=== PATIENT | female | born 1985 | race Caucasian/White ===

== ENCOUNTER → 2016-12-07 | Outpatient (REF) | payer OTHER, MEDICAID ==
[~2016-12-07] MED LIST: /MOM400 PO; ACET50TA PO; ANUS2.5C2 PR; CIPR500T89 PO; COLA50CA3 PO; FLAG500T PO; IBUP600T26 PO; PERCOCET PO
== END ==
LOC: M LAB REF 14:52
PROVIDERS: ATTEND Physician Assistant Medical
DX: Z11.3 Encounter for screening for infections with a predominantly sexual mode of transmission (principal)

== ENCOUNTER 2016-12-14 14:25 | Emergency (ER) | payer MEDICAID, OTHER ==
[2016-12-14] MEDS ORDERED: ONDANSETRON 4MG/2ML VIAL (J2405) As Ordered ONE (15:41)
[2016-12-14] MEDS ORDERED: KETOROLAC 30 MG/ML VIAL (J1885) As Ordered ONE (15:41)
[2016-12-14 15:58] LABS: CONTROL LINE UCG INT CTR LINE PRESENT
[2016-12-14 15:59] LABS: BASO % 0.7 % (0.0-1.0); EOS # 0.3 K/mm3 (0.0-0.50); EOS % 5.6 % (0.0-3.0); LARGE UNSTAINED CELL # 0.1 K/mm3 (0.0-0.4); LYMPH # 2.3 K/mm3 (1.5-6.5); LYMPH % 40.4 % (24.0-44.0); MEAN CORPUSCULAR HEMOGLOBIN 28.3 pg (27.0-33.0); MEAN CORPUSCULAR HGB CONC 33.2 g/dl (32.0-36.5); MEAN CORPUSCULAR VOLUME 85.2 fl (80.0-96.0); MONO # 0.3 K/mm3 (0.0-0.8); MONO % 4.8 % (0.0-5.0); NEUTROPHILS # 2.5 K/mm3 (1.8-7.7); NEUTROPHILS % 46.5 % (36.0-66.0); PLATELET COUNT, AUTOMATED 211 k/mm3 (150-450); RED CELL DISTRIBUTION WIDTH 12.8 % (11.5-14.5); WHITE BLOOD COUNT 5.3 K/mm3 (4.0-10.0)
[2016-12-14 16:15] LABS: ALBUMIN 3.6 GM/DL (3.2-5.2); ALBUMIN/GLOBULIN RATIO 0.92 (1.00-1.93); ALKALINE PHOSPHATASE 71 U/L (45-117); ALT/SGPT 28 U/L (12-78); AMYLASE 41 U/L (25-115); ANION GAP 3 MEQ/L (8-16); AST/SGOT 20 U/L (15-37); BILIRUBIN,DIRECT < 0.1 MG/DL (0.0-0.2); BILIRUBIN,TOTAL 0.4 MG/DL (0.2-1.0); BLOOD UREA NITROGEN 6 MG/DL (7-18); CALCIUM LEVEL 8.2 MG/DL (8.5-10.1); CARBON DIOXIDE LEVEL 32 MEQ/L (21-32); CHLORIDE LEVEL 106 MEQ/L (98-107); CREATININE FOR GFR 0.72 MG/DL (0.55-1.02); GLOMERULAR FILTRATION RATE > 60.0 (>60); GLUCOSE, FASTING 91 MG/DL (70-105); SODIUM LEVEL 141 MEQ/L (136-145); TOTAL PROTEIN 7.5 GM/DL (6.4-8.2)
--- NOTE | 2016-12-14 16:16 | REP ---
Clinical: Pelvic pain . Technique: Transabdominal pelvic ultrasound followed by transvaginal examination for better evaluation of the endometrium and adnexa with color Doppler evaluation of the ovaries. Findings: Bladder is unremarkable and currently measures 5.7 x 4.9 x 3.4 cm. Normal anteverted uterus measures 8.2 x 4.6 x 5.9 cm . The endometrial complex measures 4.6 mm thickness. No discrete uterine or endometrial abnormalities are appreciated. Bilateral ovaries are normal in appearance and vascularity without evidence for torsion. Right ovary measures 3.3 x 2.4 x 1.7 cm ; R I = 0.69. Left ovary measures 2.8 x 2.7 x 2.3 cm ; R I = 0.48. No pelvic free fluid or adnexal mass lesion. Impression: 1. Normal pelvic ultrasound. No torsion. Signed by Benito Moe MD 12/14/2016 04:08 P
[2016-12-14 16:17] LABS: POTASSIUM SERUM 4.5 MEQ/L (3.5-5.1)
[2016-12-14] MEDS ORDERED: AUGMENTIN 875 MG TAB As Ordered ONE (17:02)
--- NOTE | 2016-12-14 17:26 | EDDOCDS ---
Nurse's Notes [facility] Name: Caitlyn Bravo Age: 31 yrs Sex: Female : 1985 Arrival Date: 12/14/2016 Time: 14:25 Bed I2 / M2 Private MD: [facility] - Adults Diagnosis: Acute sinusitis;Pelvic and perineal pain Presentation: 12/14 14:29 Presenting complaint: Patient states: sinus pain/tenderness for few day. RLQ cramping rs3 for 3 weeks shooting pain since yesterday. Adult Sepsis Screening: The patient does not have new or worsening altered mentation. Patient's respiratory rate is less than 22. Systolic blood pressure is greater than 100. Patient has a qSOFA score of 0- Negative Sepsis Screen. Suicide/Homicide risk assessment- the patient denies having any suicidal and/or homicidal ideations and does not present with any other emotional, behavioral or mental health complaints. Status: Patient is not a radiology services manager or dependent. Transition of care: patient was not received from another setting of care. 14:29 Acuity: JEF Level 4 rs3 14:29 Method Of Arrival: Walkin/Carried/Asstd rs3 Triage Assessment: 14:30 General: Appears in no apparent distress. Pain: Location: face. HIV screening NA for rs3 this visit Offered previously. 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 none - PMHx: Crohn's; IBS; Ovarian cyst; UTI; - PSHx: Tonsillectomy; Adenoidectomy; Bowel resection (2012); Exploratory lap; - Social history: Smoking status: Patient uses tobacco products, light tobacco smoker. No barriers to communication noted, The patient speaks fluent Croatian. - Family history: Not pertinent. - : The pt / caregiver states he / she is not on anticoagulants. Home medication list is obtained from the patient. - Exposure Risk Screening:: None identified. Screenin:48 Screening information is obtained from the patient. Fall risk: No risks identified. kr3 Assistance ADL's: requires no assistance with activities of daily living. Abuse/DV Screen: The patient / caregiver reports he/she is: not in a situation that causes fear, pain or injury. Nutritional screening: No deficits noted. Advance Directives: Currently, there is no health care proxy. home support is adequate. Assessment: 15:49 General: Appears in no apparent distress, comfortable, Behavior is cooperative. Pain: kr3 Location: 'right ovary' Pain currently is 6 out of 10 on a pain scale. Neurological: Level of Consciousness is awake, alert. EENT: Reports nasal congestion sinus pain and presssure. Respiratory: Respiratory effort is even, unlabored. : Denies discharge, vaginal bleeding. Derm: Skin is normal. 17:23 General: Appears in no apparent distress, comfortable, Behavior is cooperative. mk4 General:. Neurological: Level of Consciousness is awake, alert. Respiratory: Airway is patent. Derm: Skin is normal. Vital Signs: 14:28 BP 133 / 84; Pulse 93; Resp 18; Temp 98.0(O); Pulse Ox 100% on R/A; Weight 99.79 kg; lr2 Height 6 ft. 10 in. (208.28 cm); Pain 6/10; 17:23 BP 128 / 88; Pulse 92; Resp 18; Temp 97; mk4 14:28 Body Mass Index 23.00 (99.79 kg, 208.28 cm) lr2 Vitals: 14:28 Log In Time: December 14, 2016 at 14:25. lr2 ED Course: 14:27 Patient visited by Becca Osborn. lr2 14:27 [facility] is Private Physician. lr2 14:27 Patient moved to Waiting lr2 14:27 Patient moved to Pre RCE lr2 14:30 Triage Initiated rs3 15:07 Patient moved to Triage 2 jb5 15:08 [facility] ef1 15:08 Kodak Angeles MD is Attending Physician. ef1 15:08 Patient visited by Linsey Rodríguez PA-C. ef1 15:30 Urinalysis Sent. jb5 15:31 Patient moved to I2 / M2 jb5 15:31 Urine Culture Sent. jb5 15:39 Patient visited by Katelynn Mcgrath RN. ck1 15:47 Patient moved to Ultrasound am10 15:48 The patient / caregiver is instructed regarding the plan of care and ED course. Patient brigid has correct armband on for positive identification. Placed in gown. Bed in low position. Call light in reach. Side rails up X 1. 15:48 Inserted saline lock: 20 gauge in left antecubital area and blood collected. The kr3 patient tolerated the procedure well. 16:02 Patient moved to I2 / M2 ef1 16:09 Patient visited by Linsey Rodríguez PA-C. ef1 16:31 -US Pelvic Non-Ob Complete Returned. EDMS 16:46 Patient visited by Anisha Cmoer RN. mk4 16:59 [facility] is Referral Physician. ef1 16:59 Your Deicer Kit Assembler is Referral Physician. ef1 17:23 No procedures done that require assistance. mk4 Administered Medications: 15:50 Drug: NS 0.9% 1000 ml [sodium chloride 0.9 % intravenous solution] Route: IV; Rate: mk4 bolus; Site: left antecubital; 15:50 Drug: ketorolac 30 mg [ketorolac 30 mg/mL (1 mL) injection solution (1 mL)] Route: IVP; mk4 Site: left antecubital; 15:51 Drug: Ondansetron 4 mg Route: IVP; Site: left antecubital; mk4 17:12 Drug: Amoxicillin-Clavulanate 1 tabs [amoxicillin 875 mg-potassium clavulanate 125 mg mk4 tablet (1 tabs)] Route: PO; Order Results: Lab Order: Amylase; SPEC'M 12/14/16 15:46 Test: AMYLASE; Value: 41; Range: 25-115; Units: U/L; Status: F Lab Order: Basic Metabolic Profile; SPEC'M 12/14/16 15:46 Test: GLUCOSE, FASTING; Value: 91; Range: 70-105; Units: MG/DL; Status: F Test: BLOOD UREA NITROGEN; Value: 6; Range: 7-18; Abnormal: Below low normal; Units: MG/DL; Status: F Test: CREATININE FOR GFR; Value: 0.72; Range: 0.55-1.02; Units: MG/DL; Status: F Test: GLOMERULAR FILTRATION RATE; Value: > 60.0; Range: >60; Status: F Test: SODIUM LEVEL; Value: 141; Range: 136-145; Units: MEQ/L; Status: F Test: POTASSIUM SERUM; Value: 4.5; Range: 3.5-5.1; Units: MEQ/L; Status: F Test: CHLORIDE LEVEL; Value: 106; Range: 98-107; Units: MEQ/L; Status: F Test: CARBON DIOXIDE LEVEL; Value: 32; Range: 21-32; Units: MEQ/L; Status: F Test: ANION GAP; Value: 3; Range: 8-16; Abnormal: Below low normal; Units: MEQ/L; Status: F Test: CALCIUM LEVEL; Value: 8.2; Range: 8.5-10.1; Abnormal: Below low normal; Units: MG/DL; Status: F Test Note: ; Units are mL/min/1.73 m2 Chronic Kidney Disease Staging per NKF: Stage I & II GFR >=60 Normal to Mildly Decreased Stage III GFR 30-59 Moderately Decreased Stage IV GFR 15-29 Severely Decreased Stage V GFR <15 Very Little GFR Left ESRD GFR <15 on FLOOR CASHIER Lab Order: CBC with Diff; SPEC'M 12/14/16 15:46 Test: WHITE BLOOD COUNT; Value: 5.3; Range: 4.0-10.0; Units: K/mm3; Status: F Test: RED BLOOD COUNT; Value: 5.20; Range: 4.00-5.40; Units: M/mm3; Status: F Test: HEMOGLOBIN; Value: 14.7; Range: 12.0-16.0; Units: g/dl; Status: F Test: HEMATOCRIT; Value: 44.3; Range: 36.0-47.0; Units: %; Status: F Test: MEAN CORPUSCULAR VOLUME; Value: 85.2; Range: 80.0-96.0; Units: fl; Status: F Test: MEAN CORPUSCULAR HEMOGLOBIN; Value: 28.3; Range: 27.0-33.0; Units: pg; Status: F Test: MEAN CORPUSCULAR HGB CONC; Value: 33.2; Range: 32.0-36.5; Units: g/dl; Status: F Test: RED CELL DISTRIBUTION WIDTH; Value: 12.8; Range: 11.5-14.5; Units: %; Status: F Test: PLATELET COUNT, AUTOMATED; Value: 211; Range: 150-450; Units: k/mm3; Status: F Test: NEUTROPHILS %; Value: 46.5; Range: 36.0-66.0; Units: %; Status: F Test: LYMPH %; Value: 40.4; Range: 24.0-44.0; Units: %; Status: F Test: MONO %; Value: 4.8; Range: 0.0-5.0; Units: %; Status: F Test: EOS %; Value: 5.6; Range: 0.0-3.0; Abnormal: Above high normal; Units: %; Status: F Test: BASO %; Value: 0.7; Range: 0.0-1.0; Units: %; Status: F Test: LARGE UNSTAINED CELL %; Value: 2.0; Range: 0.0-4.0; Units: %; Status: F Test: NEUTROPHILS #; Value: 2.5; Range: 1.8-7.7; Units: K/mm3; Status: F Test: LYMPH #; Value: 2.3; Range: 1.5-6.5; Units: K/mm3; Status: F Test: MONO #; Value: 0.3; Range: 0.0-0.8; Units: K/mm3; Status: F Test: EOS #; Value: 0.3; Range: 0.0-0.50; Units: K/mm3; Status: F Test: BASO #; Value: 0.0; Range: 0.0-0.2; Units: K/mm3; Status: F Test: LARGE UNSTAINED CELL #; Value: 0.1; Range: 0.0-0.4; Units: K/mm3; Status: F Lab Order: Lipase; SPEC' 12/14/16 15:46 Test: LIPASE; Value: 104; Range: 73-393; Units: U/L; Status: F Lab Order: Liver Profile; SPEC' 12/14/16 15:46 Test: AST/SGOT; Value: 20; Range: 15-37; Units: U/L; Status: F Test: ALT/SGPT; Value: 28; Range: 12-78; Units: U/L; Status: F Test: ALKALINE PHOSPHATASE; Value: 71; Range: 45-117; Units: U/L; Status: F Test: BILIRUBIN,TOTAL; Value: 0.4; Range: 0.2-1.0; Units: MG/DL; Status: F Test: BILIRUBIN,DIRECT; Value: < 0.1; Range: 0.0-0.2; Units: MG/DL; Status: F Test: TOTAL PROTEIN; Value: 7.5; Range: 6.4-8.2; Units: GM/DL; Status: F Test: ALBUMIN; Value: 3.6; Range: 3.2-5.2; Units: GM/DL; Status: F Test: ALBUMIN/GLOBULIN RATIO; Value: 0.92; Range: 1.00-1.93; Abnormal: Below low normal; Status: F Lab Order: Urinalysis; SPEC'M 12/14/16 15:30 Test: APPEARANCE, URINE; Value: CLEAR; Range: CLEAR; Status: F Test: COLOR, URINE; Value: YELLOW; Range: YELLOW; Status: F Test: PH,URINE; Value: 6.0; Range: 5.0-9.0; Units: UNITS; Status: F Test: SPECIFIC GRAVITY URINE AUTO; Value: 1.010; Range: 1.002-1.035; Status: F Test: PROTEIN, URINE AUTO; Value: NEGATIVE; Range: NEGATIVE; Units: mg/dL; Status: F Test: GLUCOSE, URINE (UA) AUTO; Value: NEGATIVE; Range: NEGATIVE; Units: mg/dL; Status: F Test: KETONE, URINE AUTO; Value: NEGATIVE; Range: NEGATIVE; Units: mg/dL; Status: F Test: UROBILINOGEN, URINE AUTO; Value: 0.2; Range: 0.0-2.0; Units: mg/dL; Status: F Test: BILIRUBIN, URINE AUTO; Value: NEGATIVE; Range: NEGATIVE; Status: F Test: NITRITE, URINE AUTO; Value: NEGATIVE; Range: NEGATIVE; Status: F Test: LEUKOCYTE ESTERASE, URINE AUTO; Value: NEGATIVE; Range: NEGATIVE; Status: F Test: BLOOD, URINE BLOOD; Value: NEGATIVE; Range: NEGATIVE; Status: F Test: WBC, URINE AUTO; Value: 0; Range: 0-3; Units: /HPF; Status: F Test: RBC, URINE AUTO; Value: 2; Range: 0-3; Units: /HPF; Status: F Test: BACTERIA, URINE AUTO; Value: 1+; Range: NEGATIVE; Abnormal: Above high normal; Status: F Test: SQUAMOUS EPITHELIAL CELL UR AU; Value: 2; Range: 0-6; Units: /HPF; Status: F Test: HYALINE CAST, URINE AUTO; Value: 0; Range: 0-1; Units: /LPF; Status: F Lab Order: UCG- In Lab; HODO'Yunier 12/14/16 15:35 Test: URINE PREG TEST; Value: NEGATIVE; Range: NEGATIVE; Status: F Radiology Order: -US Pelvic Non-Ob Complete Test: -US Pelvic Non-Ob Complete REASON FOR EXAMINATION: Adnexal Pain r/o Torsion; Clinical: Pelvic pain .; ; Technique: Transabdominal pelvic ultrasound followed by transvaginal examination; for better evaluation of the endometrium and adnexa with color Doppler evaluation; of the ovaries.; ; Findings:; ; Bladder is unremarkable and currently measures 5.7 x 4.9 x 3.4 cm.; ; Normal anteverted uterus measures 8.2 x 4.6 x 5.9 cm . The endometrial complex; measures 4.6 mm thickness. No discrete uterine or endometrial abnormalities are; appreciated.; ; Bilateral ovaries are normal in appearance and vascularity without evidence for; torsion. Right ovary measures 3.3 x 2.4 x 1.7 cm ; R I = 0.69. Left ovary; measures 2.8 x 2.7 x 2.3 cm ; R I = 0.48.; ; No pelvic free fluid or adnexal mass lesion.; ; Impression:; 1. Normal pelvic ultrasound. No torsion.; ; ; Signed by; Benito Moe MD 12/14/2016 04:08 P; Outcome: 15:50 Ultrasound Study completed. kr3 16:59 Discharge ordered by Provider. ef1 17:23 Discharge Assessment: Patient awake, alert and oriented x 3. No cognitive and/or mk4 functional deficits noted. Patient verbalized understanding of disposition instructions. Patient awake and alert. patient administered narcotics - no. The following High Risk Discharge criteria are identified: None. Discharged to home ambulatory. Condition: good Condition: stable. Property sent home with patient. 17:24 Patient left the ED. mk4 Signatures: Dispatcher [employer] EDIA Katelynn McgrathRN RN ck1 Rebekah Witt RN RN kr3 Milvia Cardenas, WIRE FRAME LAMP SHADE MAKER WIRE FRAME LAMP SHADE MAKER jb5 Marilee Gomez am10 Linsey Rodríguez, PA-C PA-C ef1 Angie Ko,RN RN rs3 Anisha Comer RN RN mk4 Becca Osborn lr2 MTDD
--- NOTE | 2016-12-14 17:26 | EDDOCDS ---
Physician Documentation [facility] Name: Caitlyn Bravo Age: 31 yrs Sex: Female : 1985 Arrival Date: 12/14/2016 Time: 14:25 Bed I2 / M2 Private MD: [facility], [place] - Adults Disposition: 12/14/16 16:59 Discharged to Home/Self Care. Impression: Acute sinusitis, Pelvic and perineal pain. - Condition is Stable. - Discharge Instructions: Pelvic Pain, Female, Sinusitis, [id number]. - Prescriptions for Augmentin 875- 125 mg Oral Tablet - take 1 tablet by ORAL route every 12 hours for 10 days; 20 tablet. Claritin 10 mg Oral Tablet - take 1 tablet by ORAL route once daily As needed; 30 tablet. Mucinex 600 mg - take 1 tablet by ORAL route 2 times per day; 30 tablet. [place] 5- 325 mg Oral Tablet - take 1 tablet by ORAL route every 6 hours As needed MDD: 4 tabs; 10 tablet. - Medication Reconciliation, Local Pharmacy Hours form. - Follow up: Center - Adults [facility]; When: 1 - 2 days; Reason: Recheck today's complaints, Continuance of care. Follow up: Emergency Department; Reason: Worsening of conditions. Follow up: Your Company Manager; When: Call to arrange an appointment; Reason: Further diagnostic work-up, Recheck today's complaints, Continuance of care. - Problem is new. - Symptoms have improved. Historical: - Allergies: Aspirin (burning/itching); Tramadol HCl (burning/itching); - Home Meds: 1. none - PMHx: Crohn's; IBS; Ovarian cyst; UTI; - PSHx: Tonsillectomy; Adenoidectomy; Bowel resection (2012); Exploratory lap; - Social history: Smoking status: Patient uses tobacco products, light tobacco smoker. No barriers to communication noted, The patient speaks fluent Turkmen. - Family history: Not pertinent. - : The pt / caregiver states he / she is not on anticoagulants. Home medication list is obtained from the patient. - Exposure Risk Screening:: None identified. 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 10 in. (208.28 cm); Pain 6/10; 17:23 BP 128 / 88; Pulse 92; Resp 18; Temp 97; mk4 14:28 Body Mass Index 23.00 (99.79 kg, 208.28 cm) lr2 MDM: 15:28 NS 0.9% 1000 ml IV at bolus once ordered. ef1 15:28 Ondansetron 4 mg IVP once ordered. ef1 15:28 IV Saline Lock ordered. ef1 15:28 Undress patient appropriately for examination ordered. ef1 15:29 Financial registration complete. zo 15:29 Amylase Ordered. EDMS 15:29 Basic Metabolic Profile Ordered. EDMS 15:29 CBC with Diff Ordered. EDMS 15:29 Lipase Ordered. EDMS 15:29 Liver Profile Ordered. EDMS 15:29 Urinalysis Ordered. EDMS 15:29 Urine Culture Ordered. EDMS 15:30 NOTHING BY MOUTH+DIET ordered. EDMS 15:30 -US Pelvic Non-Ob Complete Ordered. EDMS 15:31 ketorolac 30 mg IVP once ordered. ef1 15:31 DUPLEX SCAN LIMITED (DOPPLER)+US Ordered. EDMS 15:40 UCG- In Lab Ordered. EDMS 16:54 Basic Metabolic Profile Reviewed. ef1 16:54 CBC with Diff Reviewed. ef1 16:54 Liver Profile Reviewed. ef1 16:54 Urinalysis Reviewed. ef1 16:54 Amylase Reviewed. ef1 16:54 Lipase Reviewed. ef1 16:54 UCG- In Lab Reviewed. ef1 16:54 -US Pelvic Non-Ob Complete Reviewed. ef1 16:56 Amoxicillin-Clavulanate 875 mg 1 tabs PO once ordered. ef1 Administered Medications: 15:50 Drug: NS 0.9% 1000 ml [sodium chloride 0.9 % intravenous solution] Route: IV; Rate: mk4 bolus; Site: left antecubital; 15:50 Drug: ketorolac 30 mg [ketorolac 30 mg/mL (1 mL) injection solution (1 mL)] Route: IVP; mk4 Site: left antecubital; 15:51 Drug: Ondansetron 4 mg Route: IVP; Site: left antecubital; mk4 17:12 Drug: Amoxicillin-Clavulanate 1 tabs [amoxicillin 875 mg-potassium clavulanate 125 mg mk4 tablet (1 tabs)] Route: PO; Signatures: Dispatcher [employer] EDRebekah Carrion,RN RN kr3 Ej Cobos Erica, PA-C PANeda ef1 Angie Ko RN RN rs3 Anisha Comer RN RN mk4 The chart was reviewed and I authenticate all verbal orders and agree with the evaluation and treatment provided.Corrections: (The following items were deleted from the chart) 15:34 15:29 UCG by Nursing ordered. ef1 jb5 16:03 15:51 Transvaginal NON- US ordered. EDMS EDMS MTDD
--- NOTE | 2016-12-16 18:25 | EDDOCDS ---
Physician Documentation [facility] Name: Caitlyn Bravo Age: 31 yrs Sex: Female : 1985 Arrival Date: 12/14/2016 Time: 14:25 Bed I2 / M2 Private MD: [facility], [place] - Adults Disposition: 12/14/16 16:59 Discharged to Home/Self Care. Impression: Acute sinusitis, Pelvic and perineal pain. - Condition is Stable. - Discharge Instructions: Pelvic Pain, Female, Sinusitis, [id number]. - Prescriptions for Augmentin 875- 125 mg Oral Tablet - take 1 tablet by ORAL route every 12 hours for 10 days; 20 tablet. Claritin 10 mg Oral Tablet - take 1 tablet by ORAL route once daily As needed; 30 tablet. Mucinex 600 mg - take 1 tablet by ORAL route 2 times per day; 30 tablet. [place] 5- 325 mg Oral Tablet - take 1 tablet by ORAL route every 6 hours As needed MDD: 4 tabs; 10 tablet. - Medication Reconciliation, Local Pharmacy Hours form. - Follow up: Center - Adults [facility]; When: 1 - 2 days; Reason: Recheck today's complaints, Continuance of care. Follow up: Emergency Department; Reason: Worsening of conditions. Follow up: Your Technical Artist; When: Call to arrange an appointment; Reason: Further diagnostic work-up, Recheck today's complaints, Continuance of care. - Problem is new. - Symptoms have improved. Historical: - Allergies: Aspirin (burning/itching); Tramadol HCl (burning/itching); - Home Meds: 1. none - PMHx: Crohn's; IBS; Ovarian cyst; UTI; - PSHx: Tonsillectomy; Adenoidectomy; Bowel resection (2012); Exploratory lap; - Social history: Smoking status: Patient uses tobacco products, light tobacco smoker. No barriers to communication noted, The patient speaks fluent Divehi. - Family history: Not pertinent. - : The pt / caregiver states he / she is not on anticoagulants. Home medication list is obtained from the patient. - Exposure Risk Screening:: None identified. 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 10 in. (208.28 cm); Pain 6/10; 17:23 BP 128 / 88; Pulse 92; Resp 18; Temp 97; mk4 14:28 Body Mass Index 23.00 (99.79 kg, 208.28 cm) lr2 MDM: 15:28 NS 0.9% 1000 ml IV at bolus once ordered. ef1 15:28 Ondansetron 4 mg IVP once ordered. ef1 15:28 IV Saline Lock ordered. ef1 15:28 Undress patient appropriately for examination ordered. ef1 15:29 Financial registration complete. zo 15:29 Amylase Ordered. EDMS 15:29 Basic Metabolic Profile Ordered. EDMS 15:29 CBC with Diff Ordered. EDMS 15:29 Lipase Ordered. EDMS 15:29 Liver Profile Ordered. EDMS 15:29 Urinalysis Ordered. EDMS 15:29 Urine Culture Ordered. EDMS 15:30 NOTHING BY MOUTH+DIET ordered. EDMS 15:30 -US Pelvic Non-Ob Complete Ordered. EDMS 15:31 ketorolac 30 mg IVP once ordered. ef1 15:31 DUPLEX SCAN LIMITED (DOPPLER)+US Ordered. EDMS 15:40 UCG- In Lab Ordered. EDMS 16:54 Basic Metabolic Profile Reviewed. ef1 16:54 CBC with Diff Reviewed. ef1 16:54 Liver Profile Reviewed. ef1 16:54 Urinalysis Reviewed. ef1 16:54 Amylase Reviewed. ef1 16:54 Lipase Reviewed. ef1 16:54 UCG- In Lab Reviewed. ef1 16:54 -US Pelvic Non-Ob Complete Reviewed. ef1 16:56 Amoxicillin-Clavulanate 875 mg 1 tabs PO once ordered. ef1 19:22 [facility] Payment Agreement was scanned into [employer]peed and attached to record. [email or web address] 12/15 11:52 T-Sheet-- Draft Copy was scanned into Thinkspeed and attached to record. gb Administered Medications: 12/14 15:50 Drug: NS 0.9% 1000 ml [sodium chloride 0.9 % intravenous solution] Route: IV; Rate: mk4 bolus; Site: left antecubital; 15:50 Drug: ketorolac 30 mg [ketorolac 30 mg/mL (1 mL) injection solution (1 mL)] Route: IVP; mk4 Site: left antecubital; 15:51 Drug: Ondansetron 4 mg Route: IVP; Site: left antecubital; mk4 17:12 Drug: Amoxicillin-Clavulanate 1 tabs [amoxicillin 875 mg-potassium clavulanate 125 mg mk4 tablet (1 tabs)] Route: PO; Signatures: Dispatcher [employer] EDMS Jo Ann Elizabeth, Reg Reg gb Rebekah Witt,RN RN kr3 Ej Cobos Erica PA-C PA-C ef1 Angie Ko RN RN rs3 Anisha Comer RN RN mk4 Natalia Garza, Reg Reg ks16 The chart was reviewed and I authenticate all verbal orders and agree with the evaluation and treatment provided.Corrections: (The following items were deleted from the chart) 15:34 15:29 UCG by Nursing ordered. ef1 jb5 16:03 15:51 Transvaginal NON- US ordered. EDNJ EDMS Attachments: 19:22 [facility] Payment Agreement [email or web address] 12/15 11:52 T-Sheet-- Draft Copy gb Chart Complete MTDD
--- NOTE | 2016-12-16 18:25 | EDDOCDS ---
Physician Documentation [facility] Name: Caitlyn Bravo Age: 31 yrs Sex: Female : 1985 Arrival Date: 12/14/2016 Time: 14:25 Bed I2 / M2 Private MD: [facility], [place] - Adults Disposition: 12/14/16 16:59 Discharged to Home/Self Care. Impression: Acute sinusitis, Pelvic and perineal pain. - Condition is Stable. - Discharge Instructions: Pelvic Pain, Female, Sinusitis, [id number]. - Prescriptions for Augmentin 875- 125 mg Oral Tablet - take 1 tablet by ORAL route every 12 hours for 10 days; 20 tablet. Claritin 10 mg Oral Tablet - take 1 tablet by ORAL route once daily As needed; 30 tablet. Mucinex 600 mg - take 1 tablet by ORAL route 2 times per day; 30 tablet. Boyle 5- 325 mg Oral Tablet - take 1 tablet by ORAL route every 6 hours As needed MDD: 4 tabs; 10 tablet. - Medication Reconciliation, Local Pharmacy Hours form. - Follow up: Center - Adults [facility]; When: 1 - 2 days; Reason: Recheck today's complaints, Continuance of care. Follow up: Emergency Department; Reason: Worsening of conditions. Follow up: Your Primary Care Sales Representative; When: Call to arrange an appointment; Reason: Further diagnostic work-up, Recheck today's complaints, Continuance of care. - Problem is new. - Symptoms have improved. Historical: - Allergies: Aspirin (burning/itching); Tramadol HCl (burning/itching); - Home Meds: 1. none - PMHx: Crohn's; IBS; Ovarian cyst; UTI; - PSHx: Tonsillectomy; Adenoidectomy; Bowel resection (2012); Exploratory lap; - Social history: Smoking status: Patient uses tobacco products, light tobacco smoker. No barriers to communication noted, The patient speaks fluent Latvian. - Family history: Not pertinent. - : The pt / caregiver states he / she is not on anticoagulants. Home medication list is obtained from the patient. - Exposure Risk Screening:: None identified. 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 10 in. (208.28 cm); Pain 6/10; 17:23 BP 128 / 88; Pulse 92; Resp 18; Temp 97; mk4 14:28 Body Mass Index 23.00 (99.79 kg, 208.28 cm) lr2 MDM: 15:28 NS 0.9% 1000 ml IV at bolus once ordered. ef1 15:28 Ondansetron 4 mg IVP once ordered. ef1 15:28 IV Saline Lock ordered. ef1 15:28 Undress patient appropriately for examination ordered. ef1 15:29 Financial registration complete. zo 15:29 Amylase Ordered. EDMS 15:29 Basic Metabolic Profile Ordered. EDMS 15:29 CBC with Diff Ordered. EDMS 15:29 Lipase Ordered. EDMS 15:29 Liver Profile Ordered. EDMS 15:29 Urinalysis Ordered. EDMS 15:29 Urine Culture Ordered. EDMS 15:30 NOTHING BY MOUTH+DIET ordered. EDMS 15:30 -US Pelvic Non-Ob Complete Ordered. EDMS 15:31 ketorolac 30 mg IVP once ordered. ef1 15:31 DUPLEX SCAN LIMITED (DOPPLER)+US Ordered. EDMS 15:40 UCG- In Lab Ordered. EDMS 16:54 Basic Metabolic Profile Reviewed. ef1 16:54 CBC with Diff Reviewed. ef1 16:54 Liver Profile Reviewed. ef1 16:54 Urinalysis Reviewed. ef1 16:54 Amylase Reviewed. ef1 16:54 Lipase Reviewed. ef1 16:54 UCG- In Lab Reviewed. ef1 16:54 -US Pelvic Non-Ob Complete Reviewed. ef1 16:56 Amoxicillin-Clavulanate 875 mg 1 tabs PO once ordered. ef1 19:22 [facility] Payment Agreement was scanned into [employer] and attached to record. ks16 12/15 11:52 T-Sheet-- Draft Copy was scanned into [employer] and attached to record. gb Administered Medications: 12/14 15:50 Drug: NS 0.9% 1000 ml [sodium chloride 0.9 % intravenous solution] Route: IV; Rate: mk4 bolus; Site: left antecubital; 15:50 Drug: ketorolac 30 mg [ketorolac 30 mg/mL (1 mL) injection solution (1 mL)] Route: IVP; mk4 Site: left antecubital; 15:51 Drug: Ondansetron 4 mg Route: IVP; Site: left antecubital; mk4 17:12 Drug: Amoxicillin-Clavulanate 1 tabs [amoxicillin 875 mg-potassium clavulanate 125 mg mk4 tablet (1 tabs)] Route: PO; Signatures: Dispatcher MedHost EDMS Jo Ann Elizabeth, Reg Reg gb Rebekah Witt,RN RN kr3 Ej Cobos Erica PA-C PA-C ef1 Angie Ko RN RN rs3 Anisha Comer RN RN mk4 Natalia Garza, Reg Reg ks16 The chart was reviewed and I authenticate all verbal orders and agree with the evaluation and treatment provided.Corrections: (The following items were deleted from the chart) 15:34 15:29 UCG by Nursing ordered. ef1 jb5 16:03 15:51 Transvaginal NON- US ordered. EDNH EDMS Attachments: 19:22 [facility] Payment Agreement [email or web address] 12/15 11:52 T-Sheet-- Draft Copy gb Chart Complete MTDD
--- NOTE | 2016-12-16 18:25 | EDDOCDS ---
Nurse's Notes [facility] Name: Caitlyn Bravo Age: 31 yrs Sex: Female : 1985 Arrival Date: 12/14/2016 Time: 14:25 Bed I2 / M2 Private MD: [facility] - Adults Diagnosis: Acute sinusitis;Pelvic and perineal pain Presentation: 12/14 14:29 Presenting complaint: Patient states: sinus pain/tenderness for few day. RLQ cramping rs3 for 3 weeks shooting pain since yesterday. Adult Sepsis Screening: The patient does not have new or worsening altered mentation. Patient's respiratory rate is less than 22. Systolic blood pressure is greater than 100. Patient has a qSOFA score of 0- Negative Sepsis Screen. Suicide/Homicide risk assessment- the patient denies having any suicidal and/or homicidal ideations and does not present with any other emotional, behavioral or mental health complaints. Status: Patient is not a nutrition services worker or dependent. Transition of care: patient was not received from another setting of care. 14:29 Acuity: JEF Level 4 rs3 14:29 Method Of Arrival: Walkin/Carried/Asstd rs3 Triage Assessment: 14:30 General: Appears in no apparent distress. Pain: Location: face. HIV screening NA for rs3 this visit Offered previously. 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 none - PMHx: Crohn's; IBS; Ovarian cyst; UTI; - PSHx: Tonsillectomy; Adenoidectomy; Bowel resection (2012); Exploratory lap; - Social history: Smoking status: Patient uses tobacco products, light tobacco smoker. No barriers to communication noted, The patient speaks fluent Hungarian. - Family history: Not pertinent. - : The pt / caregiver states he / she is not on anticoagulants. Home medication list is obtained from the patient. - Exposure Risk Screening:: None identified. Screenin:48 Screening information is obtained from the patient. Fall risk: No risks identified. kr3 Assistance ADL's: requires no assistance with activities of daily living. Abuse/DV Screen: The patient / caregiver reports he/she is: not in a situation that causes fear, pain or injury. Nutritional screening: No deficits noted. Advance Directives: Currently, there is no health care proxy. home support is adequate. Assessment: 15:49 General: Appears in no apparent distress, comfortable, Behavior is cooperative. Pain: kr3 Location: 'right ovary' Pain currently is 6 out of 10 on a pain scale. Neurological: Level of Consciousness is awake, alert. EENT: Reports nasal congestion sinus pain and presssure. Respiratory: Respiratory effort is even, unlabored. : Denies discharge, vaginal bleeding. Derm: Skin is normal. 17:23 General: Appears in no apparent distress, comfortable, Behavior is cooperative. mk4 General:. Neurological: Level of Consciousness is awake, alert. Respiratory: Airway is patent. Derm: Skin is normal. Vital Signs: 14:28 BP 133 / 84; Pulse 93; Resp 18; Temp 98.0(O); Pulse Ox 100% on R/A; Weight 99.79 kg; lr2 Height 6 ft. 10 in. (208.28 cm); Pain 6/10; 17:23 BP 128 / 88; Pulse 92; Resp 18; Temp 97; mk4 14:28 Body Mass Index 23.00 (99.79 kg, 208.28 cm) lr2 Vitals: 14:28 Log In Time: December 14, 2016 at 14:25. lr2 ED Course: 14:27 Patient visited by Becca Osborn. lr2 14:27 [facility] - Adults is Private Physician. lr2 14:27 Patient moved to Waiting lr2 14:27 Patient moved to Pre RCE lr2 14:30 Triage Initiated rs3 15:07 Patient moved to Triage 2 jb5 15:08 [facility] Rod[facility]-C [facility] ef1 15:08 Koadk Angeles MD is Attending Physician. ef1 15:08 Patient visited by Linsey Rodríguez PA-C. ef1 15:30 Urinalysis Sent. jb5 15:31 Patient moved to I2 / M2 jb5 15:31 Urine Culture Sent. jb5 15:39 Patient visited by Katelynn Mcgrath RN. ck1 15:47 Patient moved to Ultrasound am10 15:48 The patient / caregiver is instructed regarding the plan of care and ED course. Patient brigid has correct armband on for positive identification. Placed in gown. Bed in low position. Call light in reach. Side rails up X 1. 15:48 Inserted saline lock: 20 gauge in left antecubital area and blood collected. The kr3 patient tolerated the procedure well. 16:02 Patient moved to I2 / M2 ef1 16:09 Patient visited by Linsey Rodríguez PA-C. ef1 16:31 -US Pelvic Non-Ob Complete Returned. EDMS 16:46 Patient visited by Anisha Comer RN. mk4 16:59 [facility] - Adults is Referral Physician. ef1 16:59 Your Individual Pension Consultant is Referral Physician. ef1 17:23 No procedures done that require assistance. mk4 19:22 [facility] Payment Agreement was scanned into [employer] and attached to record. ks16 12/15 11:52 T-Sheet-- Draft Copy was scanned into [employer] and attached to record. gb Administered Medications: 12/14 15:50 Drug: NS 0.9% 1000 ml [sodium chloride 0.9 % intravenous solution] Route: IV; Rate: mk4 bolus; Site: left antecubital; 15:50 Drug: ketorolac 30 mg [ketorolac 30 mg/mL (1 mL) injection solution (1 mL)] Route: IVP; mk4 Site: left antecubital; 15:51 Drug: Ondansetron 4 mg Route: IVP; Site: left antecubital; mk4 17:12 Drug: Amoxicillin-Clavulanate 1 tabs [amoxicillin 875 mg-potassium clavulanate 125 mg mk4 tablet (1 tabs)] Route: PO; Order Results: Lab Order: Amylase; SPEC'M 12/14/16 15:46 Test: AMYLASE; Value: 41; Range: 25-115; Units: U/L; Status: F Lab Order: Basic Metabolic Profile; SPEC'M 12/14/16 15:46 Test: GLUCOSE, FASTING; Value: 91; Range: 70-105; Units: MG/DL; Status: F Test: BLOOD UREA NITROGEN; Value: 6; Range: 7-18; Abnormal: Below low normal; Units: MG/DL; Status: F Test: CREATININE FOR GFR; Value: 0.72; Range: 0.55-1.02; Units: MG/DL; Status: F Test: GLOMERULAR FILTRATION RATE; Value: > 60.0; Range: >60; Status: F Test: SODIUM LEVEL; Value: 141; Range: 136-145; Units: MEQ/L; Status: F Test: POTASSIUM SERUM; Value: 4.5; Range: 3.5-5.1; Units: MEQ/L; Status: F Test: CHLORIDE LEVEL; Value: 106; Range: 98-107; Units: MEQ/L; Status: F Test: CARBON DIOXIDE LEVEL; Value: 32; Range: 21-32; Units: MEQ/L; Status: F Test: ANION GAP; Value: 3; Range: 8-16; Abnormal: Below low normal; Units: MEQ/L; Status: F Test: CALCIUM LEVEL; Value: 8.2; Range: 8.5-10.1; Abnormal: Below low normal; Units: MG/DL; Status: F Test Note: ; Units are mL/min/1.73 m2 Chronic Kidney Disease Staging per NKF: Stage I & II GFR >=60 Normal to Mildly Decreased Stage III GFR 30-59 Moderately Decreased Stage IV GFR 15-29 Severely Decreased Stage V GFR <15 Very Little GFR Left ESRD GFR <15 on SPANISHER Lab Order: CBC with Diff; SPEC'M 12/14/16 15:46 Test: WHITE BLOOD COUNT; Value: 5.3; Range: 4.0-10.0; Units: K/mm3; Status: F Test: RED BLOOD COUNT; Value: 5.20; Range: 4.00-5.40; Units: M/mm3; Status: F Test: HEMOGLOBIN; Value: 14.7; Range: 12.0-16.0; Units: g/dl; Status: F Test: HEMATOCRIT; Value: 44.3; Range: 36.0-47.0; Units: %; Status: F Test: MEAN CORPUSCULAR VOLUME; Value: 85.2; Range: 80.0-96.0; Units: fl; Status: F Test: MEAN CORPUSCULAR HEMOGLOBIN; Value: 28.3; Range: 27.0-33.0; Units: pg; Status: F Test: MEAN CORPUSCULAR HGB CONC; Value: 33.2; Range: 32.0-36.5; Units: g/dl; Status: F Test: RED CELL DISTRIBUTION WIDTH; Value: 12.8; Range: 11.5-14.5; Units: %; Status: F Test: PLATELET COUNT, AUTOMATED; Value: 211; Range: 150-450; Units: k/mm3; Status: F Test: NEUTROPHILS %; Value: 46.5; Range: 36.0-66.0; Units: %; Status: F Test: LYMPH %; Value: 40.4; Range: 24.0-44.0; Units: %; Status: F Test: MONO %; Value: 4.8; Range: 0.0-5.0; Units: %; Status: F Test: EOS %; Value: 5.6; Range: 0.0-3.0; Abnormal: Above high normal; Units: %; Status: F Test: BASO %; Value: 0.7; Range: 0.0-1.0; Units: %; Status: F Test: LARGE UNSTAINED CELL %; Value: 2.0; Range: 0.0-4.0; Units: %; Status: F Test: NEUTROPHILS #; Value: 2.5; Range: 1.8-7.7; Units: K/mm3; Status: F Test: LYMPH #; Value: 2.3; Range: 1.5-6.5; Units: K/mm3; Status: F Test: MONO #; Value: 0.3; Range: 0.0-0.8; Units: K/mm3; Status: F Test: EOS #; Value: 0.3; Range: 0.0-0.50; Units: K/mm3; Status: F Test: BASO #; Value: 0.0; Range: 0.0-0.2; Units: K/mm3; Status: F Test: LARGE UNSTAINED CELL #; Value: 0.1; Range: 0.0-0.4; Units: K/mm3; Status: F Lab Order: Lipase; SPEC' 12/14/16 15:46 Test: LIPASE; Value: 104; Range: 73-393; Units: U/L; Status: F Lab Order: Liver Profile; SPEC' 12/14/16 15:46 Test: AST/SGOT; Value: 20; Range: 15-37; Units: U/L; Status: F Test: ALT/SGPT; Value: 28; Range: 12-78; Units: U/L; Status: F Test: ALKALINE PHOSPHATASE; Value: 71; Range: 45-117; Units: U/L; Status: F Test: BILIRUBIN,TOTAL; Value: 0.4; Range: 0.2-1.0; Units: MG/DL; Status: F Test: BILIRUBIN,DIRECT; Value: < 0.1; Range: 0.0-0.2; Units: MG/DL; Status: F Test: TOTAL PROTEIN; Value: 7.5; Range: 6.4-8.2; Units: GM/DL; Status: F Test: ALBUMIN; Value: 3.6; Range: 3.2-5.2; Units: GM/DL; Status: F Test: ALBUMIN/GLOBULIN RATIO; Value: 0.92; Range: 1.00-1.93; Abnormal: Below low normal; Status: F Lab Order: Urinalysis; SPEC'M 12/14/16 15:30 Test: APPEARANCE, URINE; Value: CLEAR; Range: CLEAR; Status: F Test: COLOR, URINE; Value: YELLOW; Range: YELLOW; Status: F Test: PH,URINE; Value: 6.0; Range: 5.0-9.0; Units: UNITS; Status: F Test: SPECIFIC GRAVITY URINE AUTO; Value: 1.010; Range: 1.002-1.035; Status: F Test: PROTEIN, URINE AUTO; Value: NEGATIVE; Range: NEGATIVE; Units: mg/dL; Status: F Test: GLUCOSE, URINE (UA) AUTO; Value: NEGATIVE; Range: NEGATIVE; Units: mg/dL; Status: F Test: KETONE, URINE AUTO; Value: NEGATIVE; Range: NEGATIVE; Units: mg/dL; Status: F Test: UROBILINOGEN, URINE AUTO; Value: 0.2; Range: 0.0-2.0; Units: mg/dL; Status: F Test: BILIRUBIN, URINE AUTO; Value: NEGATIVE; Range: NEGATIVE; Status: F Test: NITRITE, URINE AUTO; Value: NEGATIVE; Range: NEGATIVE; Status: F Test: LEUKOCYTE ESTERASE, URINE AUTO; Value: NEGATIVE; Range: NEGATIVE; Status: F Test: BLOOD, URINE BLOOD; Value: NEGATIVE; Range: NEGATIVE; Status: F Test: WBC, URINE AUTO; Value: 0; Range: 0-3; Units: /HPF; Status: F Test: RBC, URINE AUTO; Value: 2; Range: 0-3; Units: /HPF; Status: F Test: BACTERIA, URINE AUTO; Value: 1+; Range: NEGATIVE; Abnormal: Above high normal; Status: F Test: SQUAMOUS EPITHELIAL CELL UR AU; Value: 2; Range: 0-6; Units: /HPF; Status: F Test: HYALINE CAST, URINE AUTO; Value: 0; Range: 0-1; Units: /LPF; Status: F Lab Order: Urine Culture; SPEC'M 12/14/16 15:30 Test: URINE CULTURE; Value: <EXTERNAL COMMENT eCWMed> FULL REPORT IN LAB NOTES (eCW and Medent).; Status: F Test: URINE CULTURE; Value: URINE CULTURE RESULT NO GROWTH CLINICAL SIGNIFICANCE 1 ORGANISM; Status: F Lab Order: UCG- In Lab; SPEC'M 12/14/16 15:35 Test: URINE PREG TEST; Value: NEGATIVE; Range: NEGATIVE; Status: F Radiology Order: -US Pelvic Non-Ob Complete Test: -US Pelvic Non-Ob Complete REASON FOR EXAMINATION: Adnexal Pain r/o Torsion; Clinical: Pelvic pain .; ; Technique: Transabdominal pelvic ultrasound followed by transvaginal examination; for better evaluation of the endometrium and adnexa with color Doppler evaluation; of the ovaries.; ; Findings:; ; Bladder is unremarkable and currently measures 5.7 x 4.9 x 3.4 cm.; ; Normal anteverted uterus measures 8.2 x 4.6 x 5.9 cm . The endometrial complex; measures 4.6 mm thickness. No discrete uterine or endometrial abnormalities are; appreciated.; ; Bilateral ovaries are normal in appearance and vascularity without evidence for; torsion. Right ovary measures 3.3 x 2.4 x 1.7 cm ; R I = 0.69. Left ovary; measures 2.8 x 2.7 x 2.3 cm ; R I = 0.48.; ; No pelvic free fluid or adnexal mass lesion.; ; Impression:; 1. Normal pelvic ultrasound. No torsion.; ; ; Signed by; Benito Moe MD 12/14/2016 04:08 P; Outcome: 15:50 Ultrasound Study completed. kr3 16:59 Discharge ordered by Provider. ef1 17:23 Discharge Assessment: Patient awake, alert and oriented x 3. No cognitive and/or mk4 functional deficits noted. Patient verbalized understanding of disposition instructions. Patient awake and alert. patient administered narcotics - no. The following High Risk Discharge criteria are identified: None. Discharged to home ambulatory. Condition: good Condition: stable. Property sent home with patient. 17:24 Patient left the ED. mk4 Signatures: Dispatcher MedHost EDMS Jo Ann Elizabeth, Reg Reg gb Katelynn Mcgrath,RN RN ck1 Rebekah Witt,RN RN kr3 Milvia Cardenas, REGIONAL BUSINESS DEVELOPMENT MANAGER REGIONAL BUSINESS DEVELOPMENT MANAGER jb5 Marilee Gomez amLinsey Garcia, PA-C PA-C ef1 Angie KoRN RN rs3 Anisha Comer RN RN mk4 Natalia Garza, Reg Reg ks16 Becca Osborn2 Chart Complete MTDD
== END 2016-12-14 17:24 | disposition home or self-care (01) ==
LOC: M ED 14:25
DX: J01.90 Acute sinusitis, unspecified (principal); R10.2 Pelvic and perineal pain; K50.90 Crohn's disease, unspecified, without complications; K58.9 Irritable bowel syndrome, unspecified; N83.209 Unspecified ovarian cyst, unspecified side; Z87.440 Personal history of urinary (tract) infections; F17.210 Nicotine dependence, cigarettes, uncomplicated; Z88.6 Allergy status to analgesic agent; Z88.8 Allergy status to other drugs, medicaments and biological substances
CPT/HCPCS: 36415; 76856; 80048; 80076; 81001; 82150; 83690; 84703; 85025; 87086; 93976; 96374; 96375; 99284; J1885; J2405

== ENCOUNTER 2017-08-03 18:22 | Emergency (ER) | payer MEDICAID, OTHER ==
[~2017-08-03] VITALS: Ht 180.3 cm; Wt 96.4 kg
--- NOTE | 2017-08-03 21:10 | ED PDOC ---
Post-Departure Follow-Up PT STATES HX OF IBS AND CROHN'S. HAS HAD A PARTIAL COLON RESECTION IN [place] IN THE PAST FEW YEARS DUE TO HER CROHN'S. HAS ALSO HAD MULTIPLE PERIANAL ABSCESSES THAT HAVE BEEN SURGICALLY DRAINED WELL. BELIEVES THIS IS A RECURRENCE OF THE ABSCESS. IS HAVING RECTAL PAIN, GROIN PAIN, DIARRHEA WITH SOME BLOODY STOOLS. STATES WAS SUPPOSED TO HAVE ANOTHER ABSCESS DRAINED BY A SURGEON IN [place] BUT RECENTLY LEFT THERE DUE TO HURRICANE PAULO. RADHA LANIER PA-C Aug 03, 2017 21:10
[2017-08-03] MEDS ORDERED: NS 1,000 ML IV ONE (21:15)
[2017-08-03] MEDS ORDERED: methylPREDNISolone INJ 125 MG/2 ML VIAL (J2930) IV ONE (21:15)
[2017-08-03 21:39] LABS: BASO % 0.4 % (0.0-1.0); EOS # 0.3 10^3/uL (0.0-0.50); EOS % 3.7 % (0.0-3.0); IMMATURE GRANULOCYTE % 0.2 % (0-0); LYMPH # 3.2 10^3/uL (1.5-6.5); LYMPH % 36.1 % (24.0-44.0); MEAN CORPUSCULAR HEMOGLOBIN 27.5 pg (27.0-33.0); MEAN CORPUSCULAR VOLUME 83.4 fl (80.0-96.0); MONO # 0.6 10^3/uL (0.0-0.8); MONO % 6.5 % (0.0-5.0); NEUTROPHILS # 4.8 10^3/uL (1.8-7.7); NEUTROPHILS % 53.1 % (36.0-66.0); PLATELET COUNT, AUTOMATED 234 10^3/uL (150-450); RED CELL DISTRIBUTION WIDTH 12.8 % (11.5-14.5)
[2017-08-03 22:01] LABS: ANION GAP 4 MEQ/L (8-16); BLOOD UREA NITROGEN 13 MG/DL (7-18); CALCIUM LEVEL 8.4 MG/DL (8.5-10.1); CARBON DIOXIDE LEVEL 29 MEQ/L (21-32); CHLORIDE LEVEL 104 MEQ/L (98-107); CREATININE FOR GFR 0.72 MG/DL (0.55-1.02); GLOMERULAR FILTRATION RATE > 60.0 (>60); GLUCOSE, FASTING 89 MG/DL (70-105); POTASSIUM SERUM 4.2 MEQ/L (3.5-5.1); SODIUM LEVEL 137 MEQ/L (136-145)
[2017-08-03] MEDS ORDERED: ISOVUE-370 76% 100ML VIAL (Q9967) As Ordered ONE (22:03)
--- NOTE | 2017-08-03 22:50 | REPUSA ---
CT of the abdomen and pelvis with contrast Clinical statement: Crohn's disease, abscess. Technique: Multiple axial CT images were obtained from the base of the lungs through the floor of the pelvis utilizing 5 mm axial slices after administration of nonionic intravenous contrast. Coronal an d sagittal reconstructions were also obtained. Comparison: 12/13/2015. Findings: Chest: The visualized lung bases are clear. Abdomen: The liver, spleen, pancreas, kidneys, gallbladder, and adrenal glands are unremarkable. The aorta is within normal limits. There is no evidence of abdominal lymphadenopathy or ascites. Pelvis: The bowel is unremarkable, with no obstructive or inflammatory changes. The urinary bladder i s within normal limits. There is a slightly complex right ovarian cyst measuring 2.2 x 1.2 cm. The ot her pelvic structures appear grossly intact. There is no evidence of pelvic lymphadenopathy or ascite s. Bones: There are no suspicious osseous abnormalities seen. Impression: 1. No obstructive or inflammatory bowel changes. 2. No perianal abscess appreciated. 3. Complex right ovarian cyst, possibly hemorrhagic in nature. 4. The other CT findings are stable.
[2017-08-03] MEDS ORDERED: ACET30TAB PO (23:09)
[2017-08-03 23:22] VITALS: BP 125/88
[2017-08-03 23:33] LABS: ERYTHROCYTE SEDIMENTATION RATE 6 mm/hr (0-20)
[2017-09-04] MEDS ORDERED: CEFD1CAP8 PO (18:07)
[2017-09-04] MEDS ORDERED: CLEO300C2 PO (21:08)
[2017-09-04] MEDS ORDERED: PERC5TAB12 PO (21:08)
== END 2017-08-03 23:24 | disposition home or self-care (01) ==
LOC: M ED 18:22
DX: N83.201 Unspecified ovarian cyst, right side (principal); R10.30 Lower abdominal pain, unspecified; K58.9 Irritable bowel syndrome, unspecified; F17.210 Nicotine dependence, cigarettes, uncomplicated; Z88.5 Allergy status to narcotic agent; Z88.8 Allergy status to other drugs, medicaments and biological substances; Z83.79 Family history of other diseases of the digestive system
CPT/HCPCS: 74177; 80048; 81001; 81025; 85025; 85652; 86140; 87086; 99283; J2930; Q9967

== ENCOUNTER → 2017-11-06 | Outpatient (CLI) | payer OTHER | LOC: M LAB 16:51 | DX: E28.2 Polycystic ovarian syndrome (principal) | CPT/HCPCS: 84144 ==

== ENCOUNTER 2017-11-10 16:04 | Emergency (ER) | payer OTHER | END 2017-11-10 17:43 | disposition home or self-care (01) | LOC: M ED 16:04 | DX: J02.9 Acute pharyngitis, unspecified (principal); Z79.899 Other long term (current) drug therapy; Z88.5 Allergy status to narcotic agent; Z88.8 Allergy status to other drugs, medicaments and biological substances; F17.210 Nicotine dependence, cigarettes, uncomplicated | CPT/HCPCS: 87880 ==

== ENCOUNTER → 2017-12-12 | Outpatient (CLI) | payer OTHER ==
[2017-12-12 18:38] LABS: PROGESTERONE 1.1 NG/ML
== END ==
LOC: M LAB 16:57
DX: E28.2 Polycystic ovarian syndrome (principal)
CPT/HCPCS: 84144

== ENCOUNTER 2017-12-16 14:50 | Emergency (ER) | payer OTHER ==
[2017-12-16 17:01] LABS: KETONE, URINE AUTO RFX NEGATIVE (NEGATIVE); LEUKOCYTE ESTERASE UR AUTO RFX NEGATIVE (NEGATIVE); NITRITE, URINE AUTO RFX NEGATIVE (NEGATIVE); RBC, URINE AUTO RFX 0 /HPF (0-3); SPECIFIC GRAVITY UR AUTO RFX 1.018 (1.002-1.035); SQUAM EPITHELIAL CELL UR AURFX 2 /HPF (0-6); WBC, URINE AUTO RFX 1 /HPF (0-3)
[2017-12-16 17:52] LABS: BASO # 0.1 10^3/uL (0.0-0.2); BASO % 0.5 % (0.0-1.0); EOS # 0.3 10^3/uL (0.0-0.50); EOS % 3.4 % (0.0-3.0); HEMATOCRIT 42.9 % (36.0-47.0); HEMOGLOBIN 14.4 g/dl (12.0-16.0); IMMATURE GRANULOCYTE % 0.1 % (0-3.0); LYMPH # 3.1 10^3/uL (1.5-4.5); LYMPH % 31.5 % (24.0-44.0); MEAN CORPUSCULAR HGB CONC 33.6 g/dl (32.0-36.5); MEAN CORPUSCULAR VOLUME 83.3 fl (80.0-96.0); MONO # 0.6 10^3/uL (0.0-0.8); MONO % 6.3 % (0.0-5.0); NEUTROPHILS # 5.7 10^3/uL (1.8-7.7); NEUTROPHILS % 58.2 % (36.0-66.0); PLATELET COUNT, AUTOMATED 254 10^3/uL (150-450); RED BLOOD COUNT 5.15 10^6/uL (4.00-5.40); RED CELL DISTRIBUTION WIDTH 13.2 % (11.5-14.5); WHITE BLOOD COUNT 9.8 10^3/uL (4.0-10.0)
[2017-12-16 18:09] LABS: ALBUMIN 3.9 GM/DL (3.2-5.2); ALBUMIN/GLOBULIN RATIO 1.03 (1.00-1.93); ALKALINE PHOSPHATASE 58 U/L (45-117); ALT/SGPT 18 U/L (12-78); ANION GAP 7 MEQ/L (8-16); AST/SGOT 10 U/L (7-37); BILIRUBIN,TOTAL 0.3 MG/DL (0.2-1.0); BLOOD UREA NITROGEN 10 MG/DL (7-18); CALCIUM LEVEL 8.4 MG/DL (8.5-10.1); CARBON DIOXIDE LEVEL 28 MEQ/L (21-32); CHLORIDE LEVEL 107 MEQ/L (98-107); GLOMERULAR FILTRATION RATE > 60.0 (>60); GLUCOSE, FASTING 91 MG/DL (70-100); HCG, SERUM QUANTITATIVE < 1.0 MIU/ML; POTASSIUM SERUM 4.2 MEQ/L (3.5-5.1); SODIUM LEVEL 142 MEQ/L (136-145); TOTAL PROTEIN 7.7 GM/DL (6.4-8.2)
== END 2017-12-16 20:26 | disposition home or self-care (01) ==
LOC: M ED 14:50
DX: N83.291 Other ovarian cyst, right side (principal); E28.2 Polycystic ovarian syndrome; F17.210 Nicotine dependence, cigarettes, uncomplicated; Z79.890 Hormone replacement therapy; Z79.810 Long term (current) use of selective estrogen receptor modulators (SERMs); Z88.8 Allergy status to other drugs, medicaments and biological substances; Z88.5 Allergy status to narcotic agent; Z98.890 Other specified postprocedural states; Z87.42 Personal history of other diseases of the female genital tract
CPT/HCPCS: 76856

== ENCOUNTER 2018-01-16 10:33 | Emergency (ER) | payer OTHER | END 2018-01-16 12:53 | disposition home or self-care (01) | LOC: M ED 10:33 | DX: S13.9XXA Sprain of joints and ligaments of unspecified parts of neck, initial encounter (principal); S33.5XXA Sprain of ligaments of lumbar spine, initial encounter; S50.311A Abrasion of right elbow, initial encounter; Y04.8XXA Assault by other bodily force, initial encounter; Y07.03 Male partner, perpetrator of maltreatment and neglect; Y92.098 Other place in other non-institutional residence as the place of occurrence of the external cause | CPT/HCPCS: 72110 ==

== ENCOUNTER → 2018-03-04 | Outpatient (CLI) | payer OTHER ==
[2018-03-04 11:14] LABS: PROGESTERONE 14.6 NG/ML
== END ==
LOC: M LAB 09:56
DX: E28.2 Polycystic ovarian syndrome (principal)
CPT/HCPCS: 84144

== ENCOUNTER → 2018-03-04 | Outpatient (CLI) | payer OTHER ==
[2018-03-04 10:42] LABS: BASO % 0.5 % (0.0-1.0); EOS # 0.2 10^3/uL (0.0-0.50); EOS % 3.4 % (0.0-3.0); HEMOGLOBIN 14.5 g/dl (12.0-15.5); IMMATURE GRANULOCYTE % 0.2 % (0-3.0); LYMPH # 2.2 10^3/uL (1.5-4.5); MEAN CORPUSCULAR HGB CONC 34.5 g/dl (32.0-36.5); MEAN CORPUSCULAR VOLUME 81.2 fl (80.0-96.0); MONO # 0.4 10^3/uL (0.0-0.8); MONO % 6.4 % (0.0-5.0); NEUTROPHILS # 3.4 10^3/uL (1.8-7.7); NEUTROPHILS % 54.5 % (36.0-66.0); PLATELET COUNT, AUTOMATED 267 10^3/uL (150-450); RED BLOOD COUNT 5.17 10^6/uL (4.00-5.40); RED CELL DISTRIBUTION WIDTH 12.9 % (11.5-14.5); WHITE BLOOD COUNT 6.2 10^3/uL (4.0-10.0)
[2018-03-04 11:13] LABS: HEPATITIS B SURFACE ANTIBODY POSITIVE (POSITIVE)
[2018-03-04 11:15] LABS: ALBUMIN 3.7 GM/DL (3.2-5.2); ALKALINE PHOSPHATASE 63 U/L (45-117); ALT/SGPT 15 U/L (12-78); ANION GAP 6 MEQ/L (8-16); AST/SGOT 11 U/L (7-37); BILIRUBIN,TOTAL 0.6 MG/DL (0.2-1.0); BLOOD UREA NITROGEN 9 MG/DL (7-18); CALCIUM LEVEL 8.3 MG/DL (8.5-10.1); CARBON DIOXIDE LEVEL 25 MEQ/L (21-32); CHLORIDE LEVEL 110 MEQ/L (98-107); GLOMERULAR FILTRATION RATE > 60.0 (>60); GLUCOSE, FASTING 88 MG/DL (70-100); POTASSIUM SERUM 4.1 MEQ/L (3.5-5.1); SODIUM LEVEL 141 MEQ/L (136-145); TOTAL PROTEIN 7.4 GM/DL (6.4-8.2)
[2018-03-04 11:24] LABS: HEPATITIS B SURFACE ANTIGEN NEGATIVE (NEGATIVE)
[2018-03-04 11:34] LABS: ESTIMATED AVERAGE GLUCOSE 103 MG/DL (60-110); HEMOGLOBIN A1c 5.2 %
[2018-03-04 11:52] LABS: HIV 1&2 SCREEN CENTAUR NEGATIVE (NEGATIVE)
[2018-03-06 00:07] LABS: HEPATITIS C QUANTITATION HCV Not Detected IU/mL (.)
== END ==
LOC: M LAB 10:01
DX: Z13.9 Encounter for screening, unspecified (principal)
CPT/HCPCS: 84443

== ENCOUNTER → 2018-03-29 | Outpatient (CLI) | payer OTHER ==
[2018-03-29 19:11] LABS: PROGESTERONE 11.2 NG/ML
== END ==
LOC: M LAB 17:04
DX: E28.2 Polycystic ovarian syndrome (principal)
CPT/HCPCS: 84144

== ENCOUNTER 2018-03-30 17:43 | Emergency (ER) | payer OTHER ==
[2018-03-30] MEDS: NS 1,000 ML IV (20:12)
[2018-03-30] MEDS: ONDANSETRON 4MG/2ML VIAL (J2405) IV (20:12)
[2018-03-30 20:14] LABS: BASO % 0.3 % (0.0-1.0); EOS # 0.3 10^3/uL (0.0-0.50); EOS % 3.5 % (0.0-3.0); HEMATOCRIT 41.3 % (36.0-47.0); HEMOGLOBIN 13.8 g/dl (12.0-15.5); IMMATURE GRANULOCYTE % 0.3 % (0-3.0); LYMPH # 2.4 10^3/uL (1.5-4.5); LYMPH % 27.5 % (24.0-44.0); MEAN CORPUSCULAR HEMOGLOBIN 27.6 pg (27.0-33.0); MEAN CORPUSCULAR HGB CONC 33.4 g/dl (32.0-36.5); MEAN CORPUSCULAR VOLUME 82.6 fl (80.0-96.0); MONO # 0.6 10^3/uL (0.0-0.8); MONO % 6.3 % (0.0-5.0); NEUTROPHILS # 5.4 10^3/uL (1.8-7.7); NEUTROPHILS % 62.1 % (36.0-66.0); PLATELET COUNT, AUTOMATED 239 10^3/uL (150-450); RED CELL DISTRIBUTION WIDTH 12.9 % (11.5-14.5); WHITE BLOOD COUNT 8.7 10^3/uL (4.0-10.0)
[2018-03-30 20:35] LABS: KETONE, URINE AUTO RFX NEGATIVE (NEGATIVE); LEUKOCYTE ESTERASE UR AUTO RFX NEGATIVE (NEGATIVE); NITRITE, URINE AUTO RFX NEGATIVE (NEGATIVE); RBC, URINE AUTO RFX 3 /HPF (0-3); SPECIFIC GRAVITY UR AUTO RFX 1.019 (1.002-1.035); SQUAM EPITHELIAL CELL UR AURFX 3 /HPF (0-6); WBC, URINE AUTO RFX 0 /HPF (0-3)
[2018-03-30 20:42] LABS: ALBUMIN 3.7 GM/DL (3.2-5.2); ALKALINE PHOSPHATASE 60 U/L (45-117); ALT/SGPT 19 U/L (12-78); ANION GAP 7 MEQ/L (8-16); AST/SGOT 9 U/L (7-37); BILIRUBIN,DIRECT < 0.1 MG/DL (0.0-0.2); BILIRUBIN,TOTAL 0.2 MG/DL (0.2-1.0); BLOOD UREA NITROGEN 12 MG/DL (7-18); CALCIUM LEVEL 8.3 MG/DL (8.5-10.1); CARBON DIOXIDE LEVEL 24 MEQ/L (21-32); CHLORIDE LEVEL 111 MEQ/L (98-107); CREATININE FOR GFR 0.77 MG/DL (0.55-1.30); GLOMERULAR FILTRATION RATE > 60.0 (>60); GLUCOSE, FASTING 96 MG/DL (70-100); HCG, SERUM QUANTITATIVE < 1.0 MIU/ML; POTASSIUM SERUM 3.8 MEQ/L (3.5-5.1); SODIUM LEVEL 142 MEQ/L (136-145); TOTAL PROTEIN 7.4 GM/DL (6.4-8.2)
== END 2018-03-30 21:35 | disposition home or self-care (01) ==
LOC: M ED 17:43
DX: R11.0 Nausea (principal); R53.83 Other fatigue; R51 Headache; F17.210 Nicotine dependence, cigarettes, uncomplicated; Z88.5 Allergy status to narcotic agent; Z88.6 Allergy status to analgesic agent; Z79.899 Other long term (current) drug therapy
CPT/HCPCS: J2405

== ENCOUNTER → 2018-05-03 | Outpatient (CLI) | payer OTHER ==
[2018-05-03 17:21] LABS: PROGESTERONE 0.5 NG/ML
== END ==
LOC: M LAB 14:41
DX: E28.2 Polycystic ovarian syndrome (principal)
CPT/HCPCS: 84144

== ENCOUNTER 2018-05-16 16:04 | Emergency (ER) | payer OTHER, MEDICAID ==
[2018-05-16 17:05] LABS: KETONE, URINE AUTO RFX NEGATIVE (NEGATIVE); LEUKOCYTE ESTERASE UR AUTO RFX NEGATIVE (NEGATIVE); NITRITE, URINE AUTO RFX NEGATIVE (NEGATIVE); RBC, URINE AUTO RFX 0 /HPF (0-3); SPECIFIC GRAVITY UR AUTO RFX 1.012 (1.002-1.035); SQUAM EPITHELIAL CELL UR AURFX 1 /HPF (0-6); WBC, URINE AUTO RFX 0 /HPF (0-3)
[2018-05-16] MEDS: KETOROLAC 30 MG/ML VIAL (J1885) IV (18:38)
[2018-05-16 18:47] LABS: BASO % 0.4 % (0.0-1.0); EOS # 0.3 10^3/uL (0.0-0.50); EOS % 2.7 % (0.0-3.0); HEMATOCRIT 42.9 % (36.0-47.0); HEMOGLOBIN 14.7 g/dl (12.0-15.5); IMMATURE GRANULOCYTE % 0.2 % (0-3.0); MEAN CORPUSCULAR HGB CONC 34.3 g/dl (32.0-36.5); MEAN CORPUSCULAR VOLUME 81.7 fl (80.0-96.0); MONO # 0.5 10^3/uL (0.0-0.8); MONO % 4.9 % (0.0-5.0); NEUTROPHILS # 5.8 10^3/uL (1.8-7.7); NEUTROPHILS % 60.8 % (36.0-66.0); PLATELET COUNT, AUTOMATED 261 10^3/uL (150-450); RED BLOOD COUNT 5.25 10^6/uL (4.00-5.40); RED CELL DISTRIBUTION WIDTH 13.2 % (11.5-14.5); WHITE BLOOD COUNT 9.6 10^3/uL (4.0-10.0)
[2018-05-16 19:14] LABS: ANION GAP 6 MEQ/L (8-16); BLOOD UREA NITROGEN 11 MG/DL (7-18); C REACTIVE PROTEIN QUANTITATIV 0.63 MG/DL (0.00-0.30); CALCIUM LEVEL 8.7 MG/DL (8.5-10.1); CARBON DIOXIDE LEVEL 27 MEQ/L (21-32); CHLORIDE LEVEL 107 MEQ/L (98-107); CREATININE FOR GFR 0.65 MG/DL (0.55-1.30); GLOMERULAR FILTRATION RATE > 60.0 (>60); GLUCOSE, FASTING 85 MG/DL (70-100); HCG, SERUM QUANTITATIVE 3 MIU/ML; POTASSIUM SERUM 4.1 MEQ/L (3.5-5.1); SODIUM LEVEL 140 MEQ/L (136-145)
[2018-05-16] MEDS: ACETAMINOPHEN 325 MG TAB PO (19:57)
[2018-05-16] MEDS: NORCO, ANEXSIA 5/325MG TABLET (HYDROcodone/ACETAMINOPHEN) PO (20:09)
== END 2018-05-16 20:48 | disposition home or self-care (01) ==
LOC: M ED 16:04
DX: N83.201 Unspecified ovarian cyst, right side (principal); I10 Essential (primary) hypertension; K50.919 Crohn's disease, unspecified, with unspecified complications; K58.9 Irritable bowel syndrome, unspecified; F43.10 Post-traumatic stress disorder, unspecified; F41.9 Anxiety disorder, unspecified; F32.9 Major depressive disorder, single episode, unspecified; Z86.73 Personal history of transient ischemic attack (TIA), and cerebral infarction without residual deficits; Z90.49 Acquired absence of other specified parts of digestive tract; Z72.0 Tobacco use; Z79.899 Other long term (current) drug therapy; Z88.6 Allergy status to analgesic agent; Z88.5 Allergy status to narcotic agent
CPT/HCPCS: J1885

== ENCOUNTER → 2018-05-22 | Outpatient (CLI) | payer OTHER ==
[2018-05-22 16:29] LABS: HCG, SERUM QUANTITATIVE 10 MIU/ML
== END ==
LOC: M LAB 15:47
DX: Z32.01 Encounter for pregnancy test, result positive (principal)
CPT/HCPCS: 84702

== ENCOUNTER → 2018-05-23 | Outpatient (REF) | payer OTHER ==
[2018-05-23 21:31] LABS: APPEARANCE, URINE HAZY (CLEAR); BACTERIA, URINE AUTO 1+ (NEGATIVE); BILIRUBIN, URINE AUTO NEGATIVE (NEGATIVE); BLOOD, URINE BLOOD NEGATIVE (NEGATIVE); COLOR, URINE YELLOW (YELLOW); GLUCOSE, URINE (UA) AUTO NEGATIVE (NEGATIVE); KETONE, URINE AUTO TRACE mg/dL (NEGATIVE); LEUKOCYTE ESTERASE, URINE AUTO NEGATIVE (NEGATIVE); MUCUS, URINE MODERATE (NEGATIVE); NITRITE, URINE AUTO NEGATIVE (NEGATIVE); PROTEIN, URINE AUTO NEGATIVE (NEGATIVE); RBC, URINE AUTO 1 /HPF (0-3); SPECIFIC GRAVITY URINE AUTO 1.028 (1.002-1.035); SQUAMOUS EPITHELIAL CELL UR AU 3 /HPF (0-6); WBC, URINE AUTO 1 /HPF (0-3)
== END ==
LOC: M LAB REF 09:26
DX: N39.0 Urinary tract infection, site not specified (principal)
CPT/HCPCS: 81001

== ENCOUNTER → 2018-05-24 | Outpatient (CLI) | payer OTHER ==
[2018-05-27 09:24] LABS: HCG, SERUM QUANTITATIVE 2 MIU/ML
== END ==
LOC: M LAB 13:07
DX: N91.2 Amenorrhea, unspecified (principal)
CPT/HCPCS: 84702

== ENCOUNTER 2018-06-23 20:22 | Emergency (ER) | payer MEDICAID, OTHER ==
[2018-06-23 22:21] LABS: BASO % 0.4 % (0.0-1.0); EOS # 0.4 10^3/uL (0.0-0.50); EOS % 5.3 % (0.0-3.0); HEMATOCRIT 42.7 % (36.0-47.0); HEMOGLOBIN 14.3 g/dl (12.0-15.5); IMMATURE GRANULOCYTE % 0.1 % (0-3.0); LYMPH # 3.1 10^3/uL (1.5-4.5); LYMPH % 38.4 % (24.0-44.0); MEAN CORPUSCULAR HGB CONC 33.5 g/dl (32.0-36.5); MEAN CORPUSCULAR VOLUME 83.6 fl (80.0-96.0); MONO # 0.5 10^3/uL (0.0-0.8); MONO % 5.8 % (0.0-5.0); NEUTROPHILS # 4.1 10^3/uL (1.8-7.7); PLATELET COUNT, AUTOMATED 247 10^3/uL (150-450); RED BLOOD COUNT 5.11 10^6/uL (4.00-5.40); RED CELL DISTRIBUTION WIDTH 12.7 % (11.5-14.5); WHITE BLOOD COUNT 8.1 10^3/uL (4.0-10.0)
[2018-06-23 22:32] LABS: APPEARANCE, URINE CLEAR (CLEAR); BACTERIA, URINE AUTO NEGATIVE (NEGATIVE); BILIRUBIN, URINE AUTO NEGATIVE (NEGATIVE); BLOOD, URINE BLOOD NEGATIVE (NEGATIVE); COLOR, URINE YELLOW (YELLOW); GLUCOSE, URINE (UA) AUTO NEGATIVE (NEGATIVE); KETONE, URINE AUTO NEGATIVE (NEGATIVE); LEUKOCYTE ESTERASE, URINE AUTO NEGATIVE (NEGATIVE); MUCUS, URINE SMALL (NEGATIVE); NITRITE, URINE AUTO NEGATIVE (NEGATIVE); PROTEIN, URINE AUTO NEGATIVE (NEGATIVE); RBC, URINE AUTO 0 /HPF (0-3); SPECIFIC GRAVITY URINE AUTO 1.016 (1.002-1.035); SQUAMOUS EPITHELIAL CELL UR AU 1 /HPF (0-6); UROBILINOGEN, URINE AUTO 0.2 mg/dL (0.0-2.0); WBC, URINE AUTO 1 /HPF (0-3)
[2018-06-23 22:36] LABS: CONTROL LINE HCG INT CTR LINE PRESENT; HCG, SERUM QUALITATIVE NEGATIVE (NEGATIVE)
[2018-06-23] MEDS ORDERED: ISOVUE-370 76% 100ML VIAL (Q9967) As Ordered (22:38)
[2018-06-23 22:43] LABS: ALBUMIN 3.6 GM/DL (3.2-5.2); ALBUMIN/GLOBULIN RATIO 0.97 (1.00-1.93); ALKALINE PHOSPHATASE 61 U/L (45-117); ALT/SGPT 20 U/L (12-78); ANION GAP 7 MEQ/L (8-16); AST/SGOT 11 U/L (7-37); BILIRUBIN,DIRECT < 0.1 MG/DL (0.0-0.2); BILIRUBIN,TOTAL 0.2 MG/DL (0.2-1.0); BLOOD UREA NITROGEN 12 MG/DL (7-18); CALCIUM LEVEL 8.5 MG/DL (8.5-10.1); CARBON DIOXIDE LEVEL 28 MEQ/L (21-32); CHLORIDE LEVEL 108 MEQ/L (98-107); CREATININE FOR GFR 1.07 MG/DL (0.55-1.30); GLOMERULAR FILTRATION RATE > 60.0 (>60); GLUCOSE, FASTING 88 MG/DL (70-100); LIPASE 147 U/L (73-393); POTASSIUM SERUM 4.1 MEQ/L (3.5-5.1); SODIUM LEVEL 143 MEQ/L (136-145); TOTAL PROTEIN 7.3 GM/DL (6.4-8.2)
[2018-06-24 00:07] LABS: HCG, SERUM QUANTITATIVE < 1.0 MIU/ML
[2018-06-24 00:55] LABS: CHLAMYDIA DNA AMPLIFICATION NEGATIVE (NEGATIVE); GC DNA AMPLIFICATION NEGATIVE (NEGATIVE)
== END 2018-06-24 00:24 | disposition home or self-care (01) ==
LOC: M ED 06-24 00:24
DX: R10.9 Unspecified abdominal pain (principal); F43.10 Post-traumatic stress disorder, unspecified; F41.9 Anxiety disorder, unspecified; F33.9 Major depressive disorder, recurrent, unspecified; Z88.5 Allergy status to narcotic agent; Z88.8 Allergy status to other drugs, medicaments and biological substances
CPT/HCPCS: Q9967

== ENCOUNTER → 2018-07-10 | Outpatient (REF) | payer OTHER ==
[2018-07-10 23:41] LABS: CONTROL LINE UCG INT CTR LINE PRESENT; URINE PREG TEST NEGATIVE (NEGATIVE)
== END ==
LOC: M LAB REF 07-11 14:14
DX: Z00.00 Encounter for general adult medical examination without abnormal findings (principal)
CPT/HCPCS: 84703

== ENCOUNTER 2018-07-24 16:50 | Emergency (ER) | payer OTHER, MEDICAID ==
[2018-07-24 17:28] LABS: KETONE, URINE AUTO RFX NEGATIVE (NEGATIVE); LEUKOCYTE ESTERASE UR AUTO RFX NEGATIVE (NEGATIVE); MUCUS, URINE RFX SMALL (NEGATIVE); NITRITE, URINE AUTO RFX NEGATIVE (NEGATIVE); RBC, URINE AUTO RFX 3 /HPF (0-3); SPECIFIC GRAVITY UR AUTO RFX 1.013 (1.002-1.035); SQUAM EPITHELIAL CELL UR AURFX 0 /HPF (0-6); WBC, URINE AUTO RFX 0 /HPF (0-3)
[2018-07-24 19:12] LABS: BASO % 0.3 % (0.0-1.0); EOS # 0.2 10^3/uL (0.0-0.50); EOS % 3.2 % (0.0-3.0); HEMATOCRIT 42.1 % (36.0-47.0); HEMOGLOBIN 14.1 g/dl (12.0-15.5); IMMATURE GRANULOCYTE % 0.1 % (0-3.0); LYMPH # 2.9 10^3/uL (1.5-4.5); LYMPH % 38.7 % (24.0-44.0); MEAN CORPUSCULAR HEMOGLOBIN 28.2 pg (27.0-33.0); MEAN CORPUSCULAR HGB CONC 33.5 g/dl (32.0-36.5); MEAN CORPUSCULAR VOLUME 84.2 fl (80.0-96.0); MONO # 0.4 10^3/uL (0.0-0.8); MONO % 5.2 % (0.0-5.0); NEUTROPHILS % 52.5 % (36.0-66.0); PLATELET COUNT, AUTOMATED 262 10^3/uL (150-450); RED CELL DISTRIBUTION WIDTH 13.1 % (11.5-14.5); WHITE BLOOD COUNT 7.6 10^3/uL (4.0-10.0)
[2018-07-24] MEDS: NS 1,000 ML IV (19:23)
[2018-07-24] MEDS: METOCLOPRAMIDE INJ 10MG/2ML VIAL (J2765) IV (19:23)
[2018-07-24] MEDS: MORPHINE 4 MG/ML 1ML VIAL/SYRINGE (J2270) IV ×2 (19:23→21:31)
[2018-07-24 19:37] LABS: ALBUMIN 3.5 GM/DL (3.2-5.2); ALBUMIN/GLOBULIN RATIO 0.97 (1.00-1.93); ALKALINE PHOSPHATASE 66 U/L (45-117); ALT/SGPT 16 U/L (12-78); AMYLASE 43 U/L (25-115); ANION GAP 7 MEQ/L (8-16); AST/SGOT 11 U/L (7-37); BILIRUBIN,TOTAL 0.4 MG/DL (0.2-1.0); BLOOD UREA NITROGEN 7 MG/DL (7-18); C REACTIVE PROTEIN QUANTITATIV 0.41 MG/DL (0.00-0.30); CALCIUM LEVEL 8.3 MG/DL (8.5-10.1); CARBON DIOXIDE LEVEL 27 MEQ/L (21-32); CHLORIDE LEVEL 107 MEQ/L (98-107); CREATININE FOR GFR 0.75 MG/DL (0.55-1.30); GLOMERULAR FILTRATION RATE > 60.0 (>60); GLUCOSE, FASTING 103 MG/DL (70-100); HCG, SERUM QUANTITATIVE < 1.0 MIU/ML; LIPASE 93 U/L (73-393); POTASSIUM SERUM 4.1 MEQ/L (3.5-5.1); SODIUM LEVEL 141 MEQ/L (136-145); TOTAL PROTEIN 7.1 GM/DL (6.4-8.2)
[2018-07-24 20:22] LABS: ERYTHROCYTE SEDIMENTATION RATE 4 mm/hr (0-20)
[2018-07-24] MEDS ORDERED: ISOVUE-370 76% 100ML VIAL (Q9967) As Ordered (21:40)
[2018-07-24] MEDS: NORCO 5/325MG TABLET (BULK FOR ED) PO (22:45)
== END 2018-07-24 22:48 | disposition home or self-care (01) ==
LOC: M ED 16:50
DX: R10.30 Lower abdominal pain, unspecified (principal); Z87.2 Personal history of diseases of the skin and subcutaneous tissue; R11.10 Vomiting, unspecified; K58.9 Irritable bowel syndrome, unspecified; I95.9 Hypotension, unspecified; E28.2 Polycystic ovarian syndrome; F41.9 Anxiety disorder, unspecified; F32.9 Major depressive disorder, single episode, unspecified; F43.10 Post-traumatic stress disorder, unspecified; Z87.42 Personal history of other diseases of the female genital tract; Z88.6 Allergy status to analgesic agent; Z88.5 Allergy status to narcotic agent; F17.200 Nicotine dependence, unspecified, uncomplicated
CPT/HCPCS: J2270

== ENCOUNTER 2018-09-01 12:40 | Emergency (ER) | payer MEDICAID, SELFPAY, OTHER ==
[2018-09-01] MEDS: ONDANSETRON 4MG/2ML VIAL (J2405) IV (14:30)
[2018-09-01] MEDS: KETOROLAC 30 MG/ML VIAL (J1885) IV (14:31)
[2018-09-01] MEDS: NS 1,000 ML IV (14:31)
[2018-09-01 14:50] LABS: BASO % 0.4 % (0.0-1.0); EOS # 0.2 10^3/uL (0.0-0.50); EOS % 2.7 % (0.0-3.0); HEMATOCRIT 42.5 % (36.0-47.0); HEMOGLOBIN 14.3 g/dl (12.0-15.5); IMMATURE GRANULOCYTE % 0.2 % (0-3.0); LYMPH # 2.4 10^3/uL (1.5-4.5); LYMPH % 27.6 % (24.0-44.0); MEAN CORPUSCULAR HGB CONC 33.6 g/dl (32.0-36.5); MEAN CORPUSCULAR VOLUME 83.3 fl (80.0-96.0); MONO # 0.5 10^3/uL (0.0-0.8); MONO % 5.6 % (0.0-5.0); NEUTROPHILS # 5.4 10^3/uL (1.8-7.7); NEUTROPHILS % 63.5 % (36.0-66.0); PLATELET COUNT, AUTOMATED 268 10^3/uL (150-450); RED CELL DISTRIBUTION WIDTH 12.9 % (11.5-14.5); WHITE BLOOD COUNT 8.5 10^3/uL (4.0-10.0)
[2018-09-01 14:52] LABS: KETONE, URINE AUTO RFX NEGATIVE (NEGATIVE); MUCUS, URINE RFX SMALL (NEGATIVE); NITRITE, URINE AUTO RFX NEGATIVE (NEGATIVE); RBC, URINE AUTO RFX 2 /HPF (0-3); SPECIFIC GRAVITY UR AUTO RFX 1.013 (1.002-1.035); SQUAM EPITHELIAL CELL UR AURFX 1 /HPF (0-6); WBC, URINE AUTO RFX 1 /HPF (0-3)
[2018-09-01 15:02] LABS: LEUKOCYTE ESTERASE UR AUTO RFX 1+ (NEGATIVE)
[2018-09-01 15:05] LABS: CONTROL LINE HCG INT CTR LINE PRESENT; HCG, SERUM QUALITATIVE NEGATIVE (NEGATIVE)
[2018-09-01 15:14] LABS: ALBUMIN 3.5 GM/DL (3.2-5.2); ALBUMIN/GLOBULIN RATIO 0.97 (1.00-1.93); ALKALINE PHOSPHATASE 70 U/L (45-117); ALT/SGPT 16 U/L (12-78); AMYLASE 37 U/L (25-115); ANION GAP 9 MEQ/L (8-16); AST/SGOT 15 U/L (7-37); BILIRUBIN,DIRECT < 0.1 MG/DL (0.0-0.2); BILIRUBIN,TOTAL 0.3 MG/DL (0.2-1.0); BLOOD UREA NITROGEN 8 MG/DL (7-18); CALCIUM LEVEL 8.8 MG/DL (8.5-10.1); CARBON DIOXIDE LEVEL 23 MEQ/L (21-32); CHLORIDE LEVEL 109 MEQ/L (98-107); CREATININE FOR GFR 0.64 MG/DL (0.55-1.30); GLOMERULAR FILTRATION RATE > 60.0 (>60); GLUCOSE, FASTING 84 MG/DL (70-100); LIPASE 99 U/L (73-393); POTASSIUM SERUM 4.3 MEQ/L (3.5-5.1); SODIUM LEVEL 141 MEQ/L (136-145); TOTAL PROTEIN 7.1 GM/DL (6.4-8.2)
== END 2018-09-01 16:52 | disposition left against medical advice (07) ==
LOC: M ED 12:40
DX: R10.31 Right lower quadrant pain (principal); R10.32 Left lower quadrant pain; R11.0 Nausea; R19.7 Diarrhea, unspecified; K50.90 Crohn's disease, unspecified, without complications; F43.10 Post-traumatic stress disorder, unspecified; F32.9 Major depressive disorder, single episode, unspecified; F41.9 Anxiety disorder, unspecified; M54.5 Low back pain; K21.9 Gastro-esophageal reflux disease without esophagitis; R51 Headache; Z90.49 Acquired absence of other specified parts of digestive tract; F17.210 Nicotine dependence, cigarettes, uncomplicated; Z88.6 Allergy status to analgesic agent; Z88.5 Allergy status to narcotic agent; Z79.899 Other long term (current) drug therapy
CPT/HCPCS: J2405

== ENCOUNTER → 2018-09-11 | Outpatient (REF) | payer MEDICAID, OTHER ==
[2018-09-11 13:49] LABS: APPEARANCE, URINE HAZY (CLEAR); BACTERIA, URINE AUTO NEGATIVE (NEGATIVE); BILIRUBIN, URINE AUTO NEGATIVE (NEGATIVE); BLOOD, URINE BLOOD NEGATIVE (NEGATIVE); COLOR, URINE YELLOW (YELLOW); GLUCOSE, URINE (UA) AUTO NEGATIVE (NEGATIVE); KETONE, URINE AUTO NEGATIVE (NEGATIVE); LEUKOCYTE ESTERASE, URINE AUTO 3+ (NEGATIVE); MUCUS, URINE SMALL (NEGATIVE); NITRITE, URINE AUTO NEGATIVE (NEGATIVE); PROTEIN, URINE AUTO NEGATIVE (NEGATIVE); RBC, URINE AUTO 10 /HPF (0-3); SPECIFIC GRAVITY URINE AUTO 1.009 (1.002-1.035); SQUAMOUS EPITHELIAL CELL UR AU 4 /HPF (0-6); UROBILINOGEN, URINE AUTO 0.2 mg/dL (0.0-2.0); WBC, URINE AUTO 16 /HPF (0-3)
== END ==
LOC: M LAB REF 13:19
DX: N39.0 Urinary tract infection, site not specified (principal)

== ENCOUNTER → 2018-09-23 | Outpatient (CLI) | payer OTHER, MEDICAID | LOC: M LAB 16:54 | DX: E28.2 Polycystic ovarian syndrome (principal) | CPT/HCPCS: 84144 ==

== ENCOUNTER → 2018-10-06 | Outpatient (REF) | payer OTHER ==
[2018-10-06 21:30] LABS: APPEARANCE, URINE CLOUDY (CLEAR); BACTERIA, URINE AUTO 1+ (NEGATIVE); BILIRUBIN, URINE AUTO NEGATIVE (NEGATIVE); BLOOD, URINE BLOOD 1+ (NEGATIVE); COLOR, URINE YELLOW (YELLOW); GLUCOSE, URINE (UA) AUTO NEGATIVE (NEGATIVE); KETONE, URINE AUTO NEGATIVE (NEGATIVE); LEUKOCYTE ESTERASE, URINE AUTO 3+ (NEGATIVE); MUCUS, URINE SMALL (NEGATIVE); NITRITE, URINE AUTO NEGATIVE (NEGATIVE); PROTEIN, URINE AUTO NEGATIVE (NEGATIVE); RBC, URINE AUTO 5 /HPF (0-3); SQUAMOUS EPITHELIAL CELL UR AU 25 /HPF (0-6); UROBILINOGEN, URINE AUTO 0.2 mg/dL (0.0-2.0); WBC, URINE AUTO 4 /HPF (0-3)
== END ==
LOC: M LAB REF 09:56
DX: N39.0 Urinary tract infection, site not specified (principal)
CPT/HCPCS: 81001

== ENCOUNTER 2018-11-05 09:36 | Emergency (ER) | payer MEDICAID, OTHER ==
[~2018-11-05] VITALS: Ht 180.3 cm; Wt 105.7 kg
[~2018-11-05 09:36] MED LIST changes: +ACET30TAB PO; +BACT800T5 PO; +CEFD1CAP8 PO; +CLEO300C2 PO; +CLOM50TA9 PO; +CYCL10TA PO; +FLUV25TA2 PO; +HYDR-3363 PO; +LETR2.5T2 PO; +NORCOTAB PO; +PERC5TAB12 PO; +PROV2.5T PO; +REGL10TA6 PO; +ZOFR4TAB14 PO
--- NOTE | 2018-11-05 12:09 | REP ---
PELVIC SONOGRAPHY: HISTORY: Left pelvic pain. Cyst versus torsion. Comparison pelvic CT imaging is from July 24, 2018. SONOGRAPHIC FINDINGS: Transabdominal and transvaginal scanning are performed. Uterine dimensions are mildly prominent at 10.0 x 5.1 x 7.1 cm. Endometrial echo 0.9 cm thick. Nabothian cysts are seen. There is a trace of free fluid. Visualized urinary bladder hutchins are smooth, but the bladder is not well filled. The right ovary has a normal appearance measuring 2.8 x 2.9 x 2.2 cm. There is a 1.5 cm follicle cyst in the right ovary. Its Doppler flow is normal. Right ovarian resistive index is by Doppler is 0.56. The left ovary measures 5.0 x 4.9 x 4.8 cm. It is felt to be somewhat enlarged. It contains a 4.3 x 4.1 x 4.1 cm hypoechoic cyst consistent with a hemorrhagic cyst. Doppler flow is normal in the left ovary. Resistive index is 0.57. IMPRESSION: 4.3 cm hemorrhagic cyst left ovary. Nabothian cysts in the uterus. Otherwise negative. Electronically Signed by Srinivas Godinez MD 11/05/2018 01:49 P
[2018-11-05] MEDS ORDERED: NORCOTAB PO (12:18)
[2018-11-05 12:32] VITALS: BP 112/73
== END 2018-11-05 12:38 | disposition home or self-care (01) ==
LOC: M ED 09:36
DX: N83.202 Unspecified ovarian cyst, left side (principal); Z88.5 Allergy status to narcotic agent; Z88.8 Allergy status to other drugs, medicaments and biological substances

== ENCOUNTER → 2018-11-20 | Outpatient (REF) | payer OTHER, MEDICAID ==
[~2018-11-20] MED LIST changes: +DICY20TA11 PO; +NICO14DI24; +PRED20TA PO
[2018-11-20 18:26] LABS: BASO % 0.6 % (0.0-1.0); EOS # 0.2 10^3/uL (0.0-0.50); EOS % 3.1 % (0.0-3.0); HEMATOCRIT 44.2 % (36.0-47.0); HEMOGLOBIN 14.4 g/dl (12.0-15.5); LYMPH # 2.5 10^3/uL (1.5-4.5); LYMPH % 35.9 % (24.0-44.0); MEAN CORPUSCULAR HEMOGLOBIN 27.5 pg (27.0-33.0); MEAN CORPUSCULAR HGB CONC 32.6 g/dl (32.0-36.5); MEAN CORPUSCULAR VOLUME 84.4 fl (80.0-96.0); MONO # 0.4 10^3/uL (0.0-0.8); MONO % 5.8 % (0.0-5.0); NEUTROPHILS # 3.8 10^3/uL (1.8-7.7); NEUTROPHILS % 54.5 % (36.0-66.0); PLATELET COUNT, AUTOMATED 287 10^3/uL (150-450); RED BLOOD COUNT 5.24 10^6/uL (4.00-5.40)
[2018-11-20 18:36] LABS: ALBUMIN 3.9 GM/DL (3.2-5.2); ALT/SGPT 25 U/L (12-78); BILIRUBIN,TOTAL 0.4 MG/DL (0.2-1.0); BLOOD UREA NITROGEN 11 MG/DL (7-18); CALCIUM LEVEL 8.6 MG/DL (8.5-10.1); CARBON DIOXIDE LEVEL 27 MEQ/L (21-32); CHLORIDE LEVEL 105 MEQ/L (98-107); CHOLESTEROL LEVEL 177 MG/DL (<200); CHOLESTEROL RISK RATIO 3.847 (<5); CREATININE FOR GFR 0.71 MG/DL (0.55-1.30); GLOMERULAR FILTRATION RATE > 60.0 (>60); GLUCOSE, FASTING 91 MG/DL (70-100); HDL CHOLESTEROL 46 MG/DL (>40); LDL CHOLESTEROL 107 MG/DL (<100); NON-HDL-C 131 MG/DL; POTASSIUM SERUM 4.4 MEQ/L (3.5-5.1); SODIUM LEVEL 140 MEQ/L (136-145); TOTAL PROTEIN 7.3 GM/DL (6.4-8.2); TRIGLYCERIDES LEVEL 119 MG/DL (<150)
[2018-11-20 18:37] LABS: TOTAL 25(OH) VITAMIN D 14.4 NG/ML (30.0-100.0)
[2018-11-20 18:44] LABS: HEMOGLOBIN A1c 5.3 %
== END ==
LOC: M LAB REF 16:52
PROVIDERS: ATTEND Nurse Practitioner Family
DX: Z13.9 Encounter for screening, unspecified (principal)

== ENCOUNTER 2018-12-16 15:57 | Emergency (ER) | payer MEDICAID, OTHER ==
[~2018-12-16] VITALS: Ht 180.3 cm; Wt 108.2 kg
[~2018-12-16 15:57] MED LIST changes: -DICY20TA11 PO; -NICO14DI24; -PRED20TA PO
[2018-12-16] MEDS ORDERED: NICO14DI24 (16:04)
[2018-12-16 17:14] LABS: BASO % 0.3 % (0.0-1.0); EOS # 0.2 10^3/uL (0.0-0.50); EOS % 2.6 % (0.0-3.0); HEMATOCRIT 45.7 % (36.0-47.0); HEMOGLOBIN 15.4 g/dl (12.0-15.5); LYMPH # 2.1 10^3/uL (1.5-4.5); LYMPH % 23.8 % (24.0-44.0); MEAN CORPUSCULAR HEMOGLOBIN 28.1 pg (27.0-33.0); MEAN CORPUSCULAR HGB CONC 33.7 g/dl (32.0-36.5); MEAN CORPUSCULAR VOLUME 83.2 fl (80.0-96.0); MONO # 0.5 10^3/uL (0.0-0.8); MONO % 5.9 % (0.0-5.0); NEUTROPHILS # 5.9 10^3/uL (1.8-7.7); NEUTROPHILS % 66.9 % (36.0-66.0); PLATELET COUNT, AUTOMATED 260 10^3/uL (150-450); RED BLOOD COUNT 5.49 10^6/uL (4.00-5.40); WHITE BLOOD COUNT 8.8 10^3/uL (4.0-10.0)
[2018-12-16 17:46] LABS: ALBUMIN 3.8 GM/DL (3.2-5.2); ALT/SGPT 18 U/L (12-78); BILIRUBIN,DIRECT < 0.1 MG/DL (0.0-0.2); BILIRUBIN,TOTAL 0.2 MG/DL (0.2-1.0); BLOOD UREA NITROGEN 12 MG/DL (7-18); CALCIUM LEVEL 8.3 MG/DL (8.5-10.1); CARBON DIOXIDE LEVEL 25 MEQ/L (21-32); CHLORIDE LEVEL 107 MEQ/L (98-107); CREATININE FOR GFR 0.75 MG/DL (0.55-1.30); GLOMERULAR FILTRATION RATE > 60.0 (>60); GLUCOSE, FASTING 99 MG/DL (70-100); LIPASE 90 U/L (73-393); POTASSIUM SERUM 4.2 MEQ/L (3.5-5.1); SODIUM LEVEL 139 MEQ/L (136-145); TOTAL PROTEIN 7.4 GM/DL (6.4-8.2)
[2018-12-16] MEDS ORDERED: KETOROLAC 30 MG/ML VIAL (J1885) IV ONE (18:15)
[2018-12-16] MEDS ORDERED: NS 1,000 ML IV ONE (18:15)
[2018-12-16] MEDS ORDERED: ONDANSETRON 4MG/2ML VIAL (J2405) IV ONE (18:15)
[2018-12-16 19:23] LABS: URINE PREG TEST NEGATIVE (NEGATIVE)
[2018-12-16] MEDS ORDERED: ISOVUE-370 76% 100ML VIAL (Q9967) As Ordered ONE (19:35)
[2018-12-16] MEDS ORDERED: MORPHINE 4 MG/ML 1ML VIAL/SYRINGE (J2270) IV ONE (19:45)
[2018-12-16 20:02] LABS: HCG, SERUM QUALITATIVE NEGATIVE (NEGATIVE)
--- NOTE | 2018-12-16 21:25 | REPVR ---
EXAM: CT Abdomen and Pelvis With Contrast EXAM DATE/TIME: 12/16/2018 7:48 PM CLINICAL HISTORY: 33 years old, female; Pain; Abdominal pain; Localized; Lower; Additional info: Lower abd pain TECHNIQUE: Axial computed tomography images of the abdomen and pelvis with intravenous contrast. All CT scans at this facility use at least one of these dose optimization techniques: automated exposure control; mA and/or kV adjustment per patient size (includes targeted exams where dose is matched to clinical indication); or iterative reconstruction. Coronal and sagittal reformatted images were created and reviewed. CONTRAST: 100 ml of ISOVUE 370 administered intravenously. COMPARISON: CT ABD/PEL W/IV CONTRAST ONLY 07/24/2018 9:40 PM FINDINGS: Lower thorax: No suspicious mass or airspace process in the visualized lung bases. ABDOMEN: Liver: Liver appears normal with no focal abnormality. Gallbladder and bile ducts: Gallbladder is present and shows no evidence of gallstone. Pancreas: Pancreas appears normal. No focal mass or peripancreatic inflammation. Spleen: Spleen appears homogeneous without focal mass. Adrenals: Adrenal glands are normal in appearance. Kidneys and ureters: Kidneys appear normal, with no stone, solid mass or hydronephrosis. Stomach and bowel: No evidence of small bowel obstruction. Cecal tip surgical suture line suggests prior appendectomy. No RLQ inflammation. No evidence of acute diverticulitis. Appendix: No evidence of appendicitis. PELVIS: Bladder: Bladder appears normal. Reproductive: Unremarkable as visualized. ABDOMEN and PELVIS: Intraperitoneal space: No pneumoperitoneum. Bones/joints: Bony structures show no acute fracture or destructive process. Soft tissues: No effacement of normal fat planes in the ischiorectal fossa. Vasculature: Main portal and splenic veins enhance normally. Atherosclerotic change present in the aorta, without aneurysm. Lymph nodes: Normal. No enlarged lymph nodes. IMPRESSION: No acute surgical or inflammatory process. No explanation for acute abdominal pain Electronically signed by: Kurtis Wong On 12/16/2018 21:24:32 PM
[2018-12-16] MEDS ORDERED: DICY20TA11 PO (21:58)
[2018-12-16] MEDS ORDERED: PRED20TA PO (21:58)
[2018-12-16] MEDS ORDERED: predniSONE 20 MG TAB PO ONE (22:00)
[2018-12-16 22:21] VITALS: BP 102/76
== END 2018-12-16 22:24 | disposition home or self-care (01) ==
LOC: M ED 15:57
DX: R10.9 Unspecified abdominal pain (principal); R19.7 Diarrhea, unspecified; K50.90 Crohn's disease, unspecified, without complications; R53.83 Other fatigue; N89.8 Other specified noninflammatory disorders of vagina; K21.9 Gastro-esophageal reflux disease without esophagitis; M54.5 Low back pain; Z87.42 Personal history of other diseases of the female genital tract; F43.10 Post-traumatic stress disorder, unspecified; F41.9 Anxiety disorder, unspecified; F32.9 Major depressive disorder, single episode, unspecified; Z86.73 Personal history of transient ischemic attack (TIA), and cerebral infarction without residual deficits; F17.200 Nicotine dependence, unspecified, uncomplicated; Z88.5 Allergy status to narcotic agent; Z88.8 Allergy status to other drugs, medicaments and biological substances
CPT/HCPCS: 74177; 80048; 80076; 81001; 83690; 84703; 85025; 96374; 96375; 99284; J1885; J2270; J2405; Q9967

== ENCOUNTER 2019-02-09 20:08 | Emergency (ER) | payer MEDICAID, OTHER ==
[~2019-02-09 20:08] MED LIST changes: -/MOM400 PO; +ACET-716 PO; -ACET30TAB PO; -ACET50TA PO; +DICY20TA11 PO; +HYDR-3715 PO; +MAPA500T17 PO; +MILK10SU PO; +NICO14DI24; -NORCOTAB PO; +OXYC1TAB23 PO; -PERCOCET PO; +PRED20TA PO
[2019-02-09] MEDS ORDERED: LETR2.5T2 PO (20:18)
[2019-02-09] MEDS ORDERED: METOCLOPRAMIDE INJ 10MG/2ML VIAL (J2765) IV ONE (21:15)
[2019-02-09] MEDS ORDERED: NS 1,000 ML IV ONE (21:15)
[2019-02-09 21:35] LABS: BASO % 0.4 % (0.0-1.0); EOS # 0.3 10^3/uL (0.0-0.50); EOS % 3.3 % (0.0-3.0); HEMATOCRIT 45.5 % (36.0-47.0); HEMOGLOBIN 15.6 g/dl (12.0-15.5); LYMPH # 3.7 10^3/uL (1.5-4.5); LYMPH % 38.1 % (24.0-44.0); MEAN CORPUSCULAR HEMOGLOBIN 27.7 pg (27.0-33.0); MEAN CORPUSCULAR HGB CONC 34.3 g/dl (32.0-36.5); MEAN CORPUSCULAR VOLUME 80.8 fl (80.0-96.0); MONO # 0.6 10^3/uL (0.0-0.8); MONO % 6.6 % (0.0-5.0); NEUTROPHILS % 51.4 % (36.0-66.0); PLATELET COUNT, AUTOMATED 279 10^3/uL (150-450); RED BLOOD COUNT 5.63 10^6/uL (4.00-5.40); WHITE BLOOD COUNT 9.7 10^3/uL (4.0-10.0)
[2019-02-09 22:02] LABS: BLOOD UREA NITROGEN 9 MG/DL (7-18); CALCIUM LEVEL 8.7 MG/DL (8.5-10.1); CARBON DIOXIDE LEVEL 25 MEQ/L (21-32); CHLORIDE LEVEL 106 MEQ/L (98-107); CREATININE FOR GFR 0.74 MG/DL (0.55-1.30); GLOMERULAR FILTRATION RATE > 60.0 (>60); GLUCOSE, FASTING 100 MG/DL (70-100); HCG, SERUM QUANTITATIVE < 1.0 MIU/ML; POTASSIUM SERUM 4.1 MEQ/L (3.5-5.1); SODIUM LEVEL 139 MEQ/L (136-145)
[2019-02-09] MEDS ORDERED: ONDA4TAB6 PO (23:49)
[2019-02-09 23:53] VITALS: BP 129/84
--- NOTE | 2019-02-10 00:18 | REPVR ---
EXAM: US Pelvis Complete, Transabdominal EXAM DATE/TIME: 02/09/2019 11:23 PM CLINICAL HISTORY: 33 years old, female; Pain; Pelvic pain; Additional info: Pelvic pain, recently finished fertility meds ? cysts TECHNIQUE: Imaging protocol: Real-time transabdominal pelvic ultrasound with image documentation. Complete exam. COMPARISON: US PELVIC NON-OB COMPLETE 11/05/2018 11:14 AM FINDINGS: Uterus/cervix: Uterus is normal. Measures 9.2 cm x 5.8 cm x 7.3 cm. Endometrial stripe measures 11.6 mm.Mildly prominant. Right adnexa: Ovary is normal measuring 3.9 cm x 3.1 cm x 3.8 cm. No mass. Normal blood flow. Left adnexa: Ovary is normal measuring 2.9 cm x 2.6 cm x 2.6 cm.. No mass. Normal blood flow. Follicular changes ovaries.Lrgest on right ovary measuring 1.7 cm x 1.4 cm x 2 cm. Free fluid: None. Bladder: Normal. IMPRESSION: Uterus is normal. Physiologic ovaries. Electronically signed by: Maritza Meldey On 02/10/2019 00:18:00 AM
== END 2019-02-09 23:59 | disposition home or self-care (01) ==
LOC: M ED 20:08
DX: N83.201 Unspecified ovarian cyst, right side (principal); K58.9 Irritable bowel syndrome, unspecified; Z79.899 Other long term (current) drug therapy; Z88.5 Allergy status to narcotic agent; Z88.8 Allergy status to other drugs, medicaments and biological substances; F17.210 Nicotine dependence, cigarettes, uncomplicated
CPT/HCPCS: 76856; 80048; 81001; 81025; 84702; 85025; 87086; 93976; 96374; 99284; J2765

== ENCOUNTER → 2019-02-19 | Outpatient (REF) | payer OTHER ==
[~2019-02-19] MED LIST changes: +ONDA4TAB6 PO
[2019-02-19 17:19] LABS: HCG, SERUM QUANTITATIVE < 1.0 MIU/ML
[2019-02-19 17:29] LABS: HCG, SERUM QUALITATIVE NEGATIVE (NEGATIVE); HEPATITIS B SURFACE ANTIBODY POSITIVE (POSITIVE)
[2019-02-19 18:08] LABS: HIV 1&2 SCREEN CENTAUR NEGATIVE (NEGATIVE)
[2019-02-19 21:55] LABS: CHLAMYDIA DNA AMPLIFICATION NEGATIVE (NEGATIVE); GC DNA AMPLIFICATION NEGATIVE (NEGATIVE)
== END ==
LOC: M LAB REF 16:27
PROVIDERS: ATTEND Nurse Practitioner Family
DX: N91.2 Amenorrhea, unspecified (principal); R35.0 Frequency of micturition

== ENCOUNTER → 2019-03-20 | Outpatient (REF) | payer OTHER, MEDICAID ==
[2019-03-20 13:41] LABS: APPEARANCE, URINE CLEAR (CLEAR); BACTERIA, URINE AUTO NEGATIVE (NEGATIVE); BILIRUBIN, URINE AUTO NEGATIVE (NEGATIVE); BLOOD, URINE BLOOD NEGATIVE (NEGATIVE); COLOR, URINE YELLOW (YELLOW); GLUCOSE, URINE (UA) AUTO NEGATIVE (NEGATIVE); KETONE, URINE AUTO NEGATIVE (NEGATIVE); LEUKOCYTE ESTERASE, URINE AUTO NEGATIVE (NEGATIVE); MUCUS, URINE SMALL (NEGATIVE); NITRITE, URINE AUTO NEGATIVE (NEGATIVE); PROTEIN, URINE AUTO NEGATIVE (NEGATIVE); RBC, URINE AUTO 0 /HPF (0-3); SPECIFIC GRAVITY URINE AUTO 1.023 (1.002-1.035); SQUAMOUS EPITHELIAL CELL UR AU 4 /HPF (0-6); UROBILINOGEN, URINE AUTO 0.2 mg/dL (0.0-2.0); WBC, URINE AUTO 1 /HPF (0-3)
== END ==
LOC: M LAB REF 13:06
PROVIDERS: ATTEND Physician Assistant Medical
DX: N39.0 Urinary tract infection, site not specified (principal)

== ENCOUNTER → 2019-04-17 | Outpatient (CLI) | payer OTHER | LOC: M LAB 15:12 | PROVIDERS: ATTEND Obstetrics & Gynecology | DX: E28.2 Polycystic ovarian syndrome (principal) ==

== ENCOUNTER → 2019-04-17 | Outpatient (CLI) | payer OTHER ==
[2019-04-17 16:38] LABS: BASO % 0.6 % (0.0-1.0); EOS # 0.2 10^3/uL (0.0-0.50); EOS % 3.1 % (0.0-3.0); HEMOGLOBIN 14.5 g/dl (12.0-15.5); LYMPH # 2.2 10^3/uL (1.5-4.5); LYMPH % 34.1 % (24.0-44.0); MEAN CORPUSCULAR HEMOGLOBIN 27.9 pg (27.0-33.0); MEAN CORPUSCULAR VOLUME 84.6 fl (80.0-96.0); MONO # 0.4 10^3/uL (0.0-0.8); MONO % 6.1 % (0.0-5.0); NEUTROPHILS # 3.6 10^3/uL (1.8-7.7); NEUTROPHILS % 55.9 % (36.0-66.0); PLATELET COUNT, AUTOMATED 273 10^3/uL (150-450); WHITE BLOOD COUNT 6.4 10^3/uL (4.0-10.0)
[2019-04-17 17:09] LABS: ALBUMIN 3.4 GM/DL (3.2-5.2); BILIRUBIN,DIRECT 0.1 MG/DL (0.0-0.2); BILIRUBIN,TOTAL 0.3 MG/DL (0.2-1.0); TOTAL PROTEIN 7.1 GM/DL (6.4-8.2)
== END ==
LOC: M LAB 15:06
PROVIDERS: ATTEND Internal Medicine Gastroenterology
DX: R19.4 Change in bowel habit (principal)

== ENCOUNTER 2019-04-24 17:43 | Emergency (ER) | payer OTHER ==
[~2019-04-24] VITALS: Ht 180.3 cm; Wt 106.4 kg
[2019-04-24 18:23] LABS: BASO % 0.5 % (0.0-1.0); EOS # 0.3 10^3/uL (0.0-0.50); EOS % 3.7 % (0.0-3.0); HEMATOCRIT 42.9 % (36.0-47.0); HEMOGLOBIN 14.4 g/dl (12.0-15.5); LYMPH # 2.9 10^3/uL (1.5-4.5); LYMPH % 32.5 % (24.0-44.0); MEAN CORPUSCULAR HEMOGLOBIN 27.5 pg (27.0-33.0); MEAN CORPUSCULAR HGB CONC 33.6 g/dl (32.0-36.5); MEAN CORPUSCULAR VOLUME 81.9 fl (80.0-96.0); MONO # 0.5 10^3/uL (0.0-0.8); MONO % 5.4 % (0.0-5.0); NEUTROPHILS # 5.1 10^3/uL (1.8-7.7); NEUTROPHILS % 57.7 % (36.0-66.0); PLATELET COUNT, AUTOMATED 272 10^3/uL (150-450); RED BLOOD COUNT 5.24 10^6/uL (4.00-5.40); WHITE BLOOD COUNT 8.9 10^3/uL (4.0-10.0)
[2019-04-24 18:54] LABS: BLOOD UREA NITROGEN 10 MG/DL (7-18); CALCIUM LEVEL 8.3 MG/DL (8.5-10.1); CARBON DIOXIDE LEVEL 25 MEQ/L (21-32); CHLORIDE LEVEL 112 MEQ/L (98-107); CREATININE FOR GFR 0.93 MG/DL (0.55-1.30); GLOMERULAR FILTRATION RATE > 60.0 (>60); GLUCOSE, FASTING 107 MG/DL (70-100); SODIUM LEVEL 142 MEQ/L (136-145)
--- NOTE | 2019-04-24 21:20 | REPVR ---
EXAM: US Pelvis Complete, Transabdominal EXAM DATE/TIME: 04/24/2019 8:39 PM CLINICAL HISTORY: 33 years old, female; Pelvic pain; Additional info: Right pelvic pain, history of cysts, RO torsion TECHNIQUE: Imaging protocol: Real-time transabdominal pelvic ultrasound with image documentation. Complete exam. COMPARISON: US PELVIC NON-OB COMPLETE 02/09/2019 11:03 PM FINDINGS: Uterus/cervix: The uterus measures 10.7 cm in its cephalocaudad dimension and 5.8 x 7.6 cm in its AP and lateral dimensions. The endometrium measures 15 mm. Right adnexa: The right ovary measures 3.4 x 2.8 x 2.4 cm and demonstrates blood flow. Left adnexa: The left ovary measures 3.1 x 2.4 x 2.9 cm and demonstrates blood flow. Free fluid: None. Bladder: Normal. IMPRESSION: Negative pelvic sonogram. Electronically signed by: Alexander Hong On 04/24/2019 21:19:43 PM
[2019-04-24] MEDS ORDERED: ZOFR8TAB24 PO (21:36)
[2019-04-24 21:45] VITALS: BP 120/75
== END 2019-04-24 21:47 | disposition home or self-care (01) ==
LOC: M ED 17:43
DX: R10.2 Pelvic and perineal pain (principal); R11.2 Nausea with vomiting, unspecified; E28.2 Polycystic ovarian syndrome; K50.90 Crohn's disease, unspecified, without complications; Z79.899 Other long term (current) drug therapy; Z88.5 Allergy status to narcotic agent; Z88.8 Allergy status to other drugs, medicaments and biological substances; F17.210 Nicotine dependence, cigarettes, uncomplicated

== ENCOUNTER 2019-05-15 19:07 | Emergency (ER) | payer OTHER ==
[~2019-05-15] VITALS: Ht 180.3 cm; Wt 103.2 kg
[~2019-05-15 19:07] MED LIST changes: +ZOFR8TAB24 PO
[2019-05-15 19:40] LABS: BASO % 0.3 % (0.0-1.0); EOS # 0.2 10^3/uL (0.0-0.50); HEMATOCRIT 46.7 % (36.0-47.0); HEMOGLOBIN 15.6 g/dl (12.0-15.5); LYMPH # 3.2 10^3/uL (1.5-4.5); LYMPH % 40.5 % (24.0-44.0); MEAN CORPUSCULAR HGB CONC 33.4 g/dl (32.0-36.5); MEAN CORPUSCULAR VOLUME 83.7 fl (80.0-96.0); MONO # 0.5 10^3/uL (0.0-0.8); MONO % 6.3 % (0.0-5.0); NEUTROPHILS # 3.9 10^3/uL (1.8-7.7); NEUTROPHILS % 49.6 % (36.0-66.0); PLATELET COUNT, AUTOMATED 256 10^3/uL (150-450); RED BLOOD COUNT 5.58 10^6/uL (4.00-5.40); WHITE BLOOD COUNT 7.9 10^3/uL (4.0-10.0)
[2019-05-15 19:59] LABS: BLOOD UREA NITROGEN 8 MG/DL (7-18); CARBON DIOXIDE LEVEL 29 MEQ/L (21-32); CHLORIDE LEVEL 107 MEQ/L (98-107); CK-MB VALUE MASS < 1.0 NG/ML (<3.6); CPK CREATINE PHOSPHOKINASE 54 U/L (26-192); CREATININE FOR GFR 0.79 MG/DL (0.55-1.30); GLOMERULAR FILTRATION RATE > 60.0 (>60); GLUCOSE, FASTING 93 MG/DL (70-100); MB/CK RELATIVE INDEX 1.85 (< OR =4); POTASSIUM SERUM 3.7 MEQ/L (3.5-5.1); SODIUM LEVEL 142 MEQ/L (136-145); TROPONIN I < 0.02 NG/ML (< 0.10)
[2019-05-15] MEDS ORDERED: LORazepam 2 MG/ML VIAL (J2060) IV STA (21:08)
[2019-05-15] MEDS ORDERED: MORPHINE 4 MG/ML 1ML VIAL/SYRINGE (J2270) IV ONE (21:15)
[2019-05-15] MEDS ORDERED: KETOROLAC 30 MG/ML VIAL (J1885) IV ONE (21:15)
--- NOTE | 2019-05-15 21:53 | REPVR ---
EXAM: CT Cervical Spine Without Contrast EXAM DATE/TIME: 05/15/2019 9:25 PM CLINICAL HISTORY: 33 years old, female; Neck pain; Additional info: Severe headache; Neck pain TECHNIQUE: Imaging protocol: Computed tomography images of the cervical spine without contrast. Coronal and sagittal reformatted images were created and reviewed. Radiation optimization: All CT scans at this facility use at least one of these dose optimization techniques: automated exposure control; mA and/or kV adjustment per patient size (includes targeted exams where dose is matched to clinical indication); or iterative reconstruction. COMPARISON: No relevant prior studies available. FINDINGS: Vertebrae: Mild reversal of the normal cervical lordosis. Alignment anatomic. Mild levoscoliosis. No CT evidence of acute fracture, dislocation or subluxation. Vertebral body heights maintained. Discs/Spinal canal/Neural foramina: Intervertebral disc spaces preserved. No significant spinal canal or neural foraminal stenosis. Soft tissues: Grossly unremarkable. Lungs: Grossly unremarkable. IMPRESSION: 1. No CT evidence of acute cervical spine traumatic injury. 2. Additional findings, as above. Electronically signed by: Niall Howell On 05/15/2019 21:53:42 PM
--- NOTE | 2019-05-15 21:54 | REPVR ---
EXAM: CT Head Without Contrast EXAM DATE/TIME: 05/15/2019 9:25 PM CLINICAL HISTORY: 33 years old, female; Pain; Headache not specified; Additional info: Severe headache; Neck pain TECHNIQUE: Imaging protocol: Computed tomography images of the head without contrast. Radiation optimization: All CT scans at this facility use at least one of these dose optimization techniques: automated exposure control; mA and/or kV adjustment per patient size (includes targeted exams where dose is matched to clinical indication); or iterative reconstruction. COMPARISON: No relevant prior studies available. FINDINGS: Brain: No CT evidence of acute intracranial hemorrhage or acute territorial infarction. No significant mass effect or midline shift. Basal cisterns patent. Ventricles: Normal in size and configuration. Bones/joints: No acute osseous abnormality. Sinuses: Grossly unremarkable. Mastoid air cells: Grossly unremarkable. Soft tissues: Grossly unremarkable. IMPRESSION: No CT evidence of acute intracranial pathology. Electronically signed by: Niall Howell On 05/15/2019 21:54:44 PM
[2019-05-15 22:50] LABS: CK-MB VALUE MASS < 1.0 NG/ML (<3.6); CPK CREATINE PHOSPHOKINASE 50 U/L (26-192); TROPONIN I < 0.02 NG/ML (< 0.10)
[2019-05-15] MEDS ORDERED: NORC1TAB7 PO (23:13)
[2019-05-15] MEDS ORDERED: ROBA500T PO (23:13)
[2019-05-15] MEDS ORDERED: NORCO 5/325MG TABLET (BULK FOR ED) PO ONE (23:15)
[2019-05-16] VITALS: BP 131/93
--- NOTE | 2019-05-16 05:58 | ECGEPIP ---
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
--- NOTE | 2019-05-16 06:00 | ECGEPIP ---
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
--- NOTE | 2019-05-16 07:54 | REP ---
Portable chest x-ray: Single view. History: Chest pain. Comparison study: September 01, 2018. Findings: EKG monitoring electrodes overlie the chest. Heart size is normal. Lung pace are clear. Pleural angles are sharp. Pulmonary vasculature is not increased. No significant bony abnormality. Impression: Negative portable chest x-ray. Electronically Signed by Srinivas Godinez MD 05/16/2019 07:45 A
== END 2019-05-16 00:14 | disposition home or self-care (01) ==
LOC: M ED 19:07
DX: M54.12 Radiculopathy, cervical region (principal); R07.89 Other chest pain; I95.9 Hypotension, unspecified; K21.9 Gastro-esophageal reflux disease without esophagitis; F33.9 Major depressive disorder, recurrent, unspecified; F43.10 Post-traumatic stress disorder, unspecified; Z79.899 Other long term (current) drug therapy; Z88.8 Allergy status to other drugs, medicaments and biological substances; Z88.5 Allergy status to narcotic agent; Z87.891 Personal history of nicotine dependence
CPT/HCPCS: 70450; 71045; 72125; 80048; 82550; 82553; 85025; 93005; 93041; 94760; 96374; 96375; 99285; J1885; J2060; J2270

== ENCOUNTER → 2019-06-05 | Outpatient (CLI) | payer OTHER ==
[~2019-06-05] MED LIST changes: +NORC1TAB7 PO; +ROBA500T PO; +letrozole
== END ==
LOC: M LAB 10:15
PROVIDERS: ATTEND Obstetrics & Gynecology
DX: N91.2 Amenorrhea, unspecified (principal)

== ENCOUNTER → 2019-06-12 | Outpatient (CLI) | payer OTHER ==
[~2019-06-12] MED LIST changes: +ISOVUE-370 76% 100ML VIAL (Q9967) As Ordered ONE; -letrozole
--- NOTE | 2019-06-12 15:55 | REP ---
Hysterosalpingogram: 13 views. History: Infertility. Fluoroscopy time is 0.8 minutes. Findings: A sequence of fluoroscopically obtained spot radiographs during contrast injection demonstrate normal endocervical and endometrial canal. The uterus is tipped somewhat to the right. The isthmic and ampullary segment of the right fallopian tube is normal and fairly prompt peritoneal spillage is seen on the right. Delayed filling of the left fallopian tube was observed. Ultimately tubal patency was documented on the left. There are diverticula like outpouchings from the proximal isthmic segment of the left fallopian tube consistent with salpingitis isthmica nodosa. Otherwise negative. Impression: Bilateral tubal patency is ultimately documented. Asymmetric flow is seen with prompt spillage from the right and delayed spillage from the left. There is a short segment of salpingitis isthmica nodosa visualized in the left fallopian tube proximally. Electronically Signed by Srinivas Godinez MD 06/12/2019 05:38 P
== END ==
LOC: M RADPRO 11:56
PROVIDERS: ATTEND Obstetrics & Gynecology
DX: N70.91 Salpingitis, unspecified (principal); N97.9 Female infertility, unspecified
CPT/HCPCS: 58340; 74740; Q9967

== ENCOUNTER → 2019-06-26 | Outpatient (CLI) | payer OTHER ==
[~2019-06-26] MED LIST changes: -ISOVUE-370 76% 100ML VIAL (Q9967) As Ordered ONE; +letrozole
[2019-06-26 20:13] LABS: CHLAMYDIA DNA AMPLIFICATION NEGATIVE (NEGATIVE); GC DNA AMPLIFICATION NEGATIVE (NEGATIVE)
== END ==
LOC: M LAB 15:42
PROVIDERS: ATTEND Obstetrics & Gynecology
DX: N97.9 Female infertility, unspecified (principal); R10.2 Pelvic and perineal pain

== ENCOUNTER → 2019-07-28 | Outpatient (CLI) | payer OTHER | LOC: M LAB 09:47 | PROVIDERS: ATTEND Obstetrics & Gynecology | DX: E28.2 Polycystic ovarian syndrome (principal) ==

== ENCOUNTER 2019-08-01 08:17 | Day surgery (SDC) | payer OTHER ==
[~2019-08-01] VITALS: Ht 180.3 cm; Wt 102.4 kg
[~2019-08-01 08:17] MED LIST changes: +NS 1,000 ML IV ONE
[2019-08-01] MEDS ORDERED: PROPOFOL 200 MG/20 ML VIAL As Ordered ONE ×2 (08:42→10:04)
[2019-08-01] MEDS ORDERED: LIDOCAINE 2% INJ 100 MG/5 ML SDV (FOR ANES.) As Ordered ONE (08:42)
[2019-08-01 10:55] VITALS: BP 115/76
--- NOTE | 2019-08-01 11:13 | ROOR ---
Patient Name: Caitlyn Bravo Procedure Date: 08/01/2019 9:38 AM Date of : 1985 Age: 33 Room: [facility] Gender: Female Note Status: Finalized Procedure: Colonoscopy Indications: Suspected Crohn's disease of the small bowel and colon, Disease activity assessment of Crohn's disease of the small bowel and colon Providers: Gómez Leiva MD Referring MD: Nannette Hirsch MD Requesting Provider: Medicines: Monitored Anesthesia Care Complications: No immediate complications. Procedure: Pre-Anesthesia Assessment: - Prior to the procedure, a History and Physical was performed, and patient medications and allergies were reviewed. The patient is competent. The risks and benefits of the procedure and the sedation options and risks were discussed with the patient. All questions were answered and informed consent was obtained. Patient identification and proposed procedure were verified by the physician, the nurse and the anesthesiologist in the procedure room. Mental Status Examination: alert and oriented. Airway Examination: normal oropharyngeal airway and neck mobility. Respiratory Examination: clear to auscultation. CV Examination: normal. Prophylactic Antibiotics: The patient does not require prophylactic antibiotics. Prior Anticoagulants: The patient has taken no previous anticoagulant or antiplatelet agents. ASA Grade Assessment: II - A patient with mild systemic disease. After reviewing the risks and benefits, the patient was deemed in satisfactory condition to undergo the procedure. The anesthesia plan was to use monitored anesthesia care (MAC). Immediately prior to administration of medications, the patient was re-assessed for adequacy to receive sedatives. The heart rate, respiratory rate, oxygen saturations, blood pressure, adequacy of pulmonary ventilation, and response to care were monitored throughout the procedure. The physical status of the patient was re-assessed after the procedure. The Colonoscope was introduced through the anus and advanced to 10 cm into the ileum. The colonoscopy was performed without difficulty. The patient tolerated the procedure well. The quality of the bowel preparation was good. The terminal ileum and the rectum were photographed. Scope insertion time was 3 minutes. Scope withdrawal time was 14 minutes. The total duration of the procedure was 17 minutes. Findings: The perianal and digital rectal examinations were normal. The rosio-terminal ileum appeared normal. There was evidence of a prior functional end-to-end ileo-colonic anastomosis in the ascending colon. This was patent and was characterized by healthy appearing mucosa. The anastomosis was traversed. A localized area of moderately nodular mucosa was found in the recto-sigmoid colon. Biopsies were taken with a cold forceps for histology. Verification of patient identification for the specimen was done by the physician and nurse using the patient's name, date and medical record number. Estimated blood loss was minimal. For hemostasis, one hemostatic clip was successfully placed. There was no bleeding at the end of the procedure. A tattoo was seen in the recto-sigmoid colon. Normal mucosa was found in the entire colon. Biopsies for histology were taken with a cold forceps from the right colon, left colon and rectosigmoid colon for evaluation of microscopic colitis. A localized area of granular mucosa was found in the distal rectum. Biopsies were taken with a cold forceps for histology. To close a defect after polypectomy, one hemostatic clip was successfully placed. There was no bleeding at the end of the procedure. Non-bleeding external and internal hemorrhoids were found during retroflexion. The hemorrhoids were small. Impression: - The examined portion of the ileum was normal. - Patent functional end-to-end ileo-colonic anastomosis, characterized by healthy appearing mucosa. - Abnormal mucosa in the recto-sigmoid colon. Biopsied. Clip was placed. - A tattoo was seen in the recto-sigmoid colon. - Normal mucosa in the entire examined colon. Biopsied. - Granularity in the distal rectum. Biopsied. Clip was placed. - Non-bleeding external and internal hemorrhoids. Recommendation: - Patient has a contact number available for emergencies. The signs and symptoms of potential delayed complications were discussed with the patient. Return to normal activities tomorrow. Written discharge instructions were provided to the patient. - High fiber diet. - Continue present medications. - Await pathology results. - Repeat colonoscopy in 3 - 5 years for surveillance based on pathology results. - Use Canasa 1000 mg suppository 1 per rectum QHS for 2 weeks. - Telephone GI clinic for pathology results in 2 weeks. - Return to primary care physician. Gómez Leiva MD Gómez Leiva MD 08/01/2019 11:12:46 AM Electronically signed by Gómez Leiva MD Number of Addenda: 0 Note Initiated On: 08/01/2019 9:38 AM Estimated Blood Loss: Estimated blood loss was minimal.
== END 2019-08-01 13:02 | disposition home or self-care (01) ==
LOC: M OPP 08:17
PROVIDERS: ATTEND Internal Medicine Gastroenterology
DX: K50.80 Crohn's disease of both small and large intestine without complications (principal); K60.4 Rectal fistula; K62.89 Other specified diseases of anus and rectum; K63.89 Other specified diseases of intestine; K64.8 Other hemorrhoids; Z98.0 Intestinal bypass and anastomosis status; K57.32 Diverticulitis of large intestine without perforation or abscess without bleeding; K58.9 Irritable bowel syndrome, unspecified; K21.9 Gastro-esophageal reflux disease without esophagitis; F41.9 Anxiety disorder, unspecified; F32.9 Major depressive disorder, single episode, unspecified; G43.909 Migraine, unspecified, not intractable, without status migrainosus; F42.9 Obsessive-compulsive disorder, unspecified; F43.10 Post-traumatic stress disorder, unspecified; Z86.73 Personal history of transient ischemic attack (TIA), and cerebral infarction without residual deficits; M79.7 Fibromyalgia; F17.210 Nicotine dependence, cigarettes, uncomplicated; Z88.8 Allergy status to other drugs, medicaments and biological substances; Z79.899 Other long term (current) drug therapy

== ENCOUNTER 2019-08-10 15:11 | Emergency (ER) | payer OTHER ==
[~2019-08-10] VITALS: Ht 180.3 cm; Wt 103.9 kg
[~2019-08-10 15:11] MED LIST changes: -NS 1,000 ML IV ONE
[2019-08-10 15:13] VITALS: BP 134/93
[2019-08-10 15:56] LABS: BASO % 0.4 % (0.0-1.0); EOS # 0.2 10^3/uL (0.0-0.5); EOS % 2.4 % (0.0-3.0); HEMATOCRIT 46.2 % (36.0-47.0); HEMOGLOBIN 15.3 g/dl (12.0-15.5); LYMPH # 2.6 10^3/uL (1.5-5.0); MEAN CORPUSCULAR HEMOGLOBIN 27.9 pg (27.0-33.0); MEAN CORPUSCULAR HGB CONC 33.1 g/dl (32.0-36.5); MEAN CORPUSCULAR VOLUME 84.3 fl (80.0-96.0); MONO # 0.4 10^3/uL (0.0-0.8); MONO % 5.6 % (0.0-5.0); NEUTROPHILS # 4.6 10^3/uL (1.5-8.5); NEUTROPHILS % 58.3 % (36.0-66.0); PLATELET COUNT, AUTOMATED 282 10^3/uL (150-450); RED BLOOD COUNT 5.48 10^6/uL (4.00-5.40); WHITE BLOOD COUNT 7.9 10^3/uL (4.0-10.0)
[2019-08-10 16:37] LABS: HCG, SERUM QUALITATIVE NEGATIVE (NEGATIVE)
[2019-08-10 16:42] LABS: ALBUMIN 3.8 GM/DL (3.2-5.2); ALT/SGPT 16 U/L (12-78); BILIRUBIN,DIRECT < 0.1 MG/DL (0.0-0.2); BILIRUBIN,TOTAL 0.2 MG/DL (0.2-1.0); BLOOD UREA NITROGEN 8 MG/DL (7-18); CALCIUM LEVEL 8.7 MG/DL (8.5-10.1); CARBON DIOXIDE LEVEL 28 MEQ/L (21-32); CHLORIDE LEVEL 107 MEQ/L (98-107); CREATININE FOR GFR 0.81 MG/DL (0.55-1.30); GLOMERULAR FILTRATION RATE > 60.0 (>60); GLUCOSE, FASTING 90 MG/DL (70-100); HCG, SERUM QUANTITATIVE < 1.0 MIU/ML; LIPASE 103 U/L (73-393); POTASSIUM SERUM 4.3 MEQ/L (3.5-5.1); SODIUM LEVEL 139 MEQ/L (136-145); TOTAL PROTEIN 7.5 GM/DL (6.4-8.2)
== END 2019-08-10 17:54 | disposition home or self-care (01) ==
LOC: M ED 15:11
DX: Z32.02 Encounter for pregnancy test, result negative (principal); Z88.5 Allergy status to narcotic agent; Z88.6 Allergy status to analgesic agent; N97.9 Female infertility, unspecified; E87.6 Hypokalemia; I95.9 Hypotension, unspecified; R51 Headache; K21.9 Gastro-esophageal reflux disease without esophagitis; K50.90 Crohn's disease, unspecified, without complications; M54.5 Low back pain; R11.0 Nausea; Z98.890 Other specified postprocedural states

== ENCOUNTER → 2019-09-16 | Outpatient (CLI) | payer OTHER | LOC: M LAB 11:30 | PROVIDERS: ATTEND Physician Assistant Medical | DX: N91.2 Amenorrhea, unspecified (principal) ==

== ENCOUNTER 2019-10-16 00:10 | Emergency (ER) | payer OTHER ==
[~2019-10-16] VITALS: Ht 180.3 cm; Wt 100.0 kg
[2019-10-16] MEDS ORDERED: ONDANSETRON 4 MG ORAL DISINTEGRATING TAB (Q0162 PER 1MG) PO ONE (01:30)
[2019-10-16 02:19] LABS: HEMOGLOBIN 13.9 g/dl (12.0-15.5); RED BLOOD COUNT 4.99 10^6/uL (4.00-5.40)
[2019-10-16 02:20] LABS: BASO % 0.4 % (0.0-1.0); EOS # 0.4 10^3/uL (0.0-0.5); EOS % 4.9 % (0.0-3.0); HEMATOCRIT 42.9 % (36.0-47.0); LYMPH # 3.4 10^3/uL (1.5-5.0); LYMPH % 37.6 % (24.0-44.0); MEAN CORPUSCULAR HEMOGLOBIN 27.9 pg (27.0-33.0); MEAN CORPUSCULAR HGB CONC 32.4 g/dl (32.0-36.5); MONO # 0.6 10^3/uL (0.0-0.8); MONO % 6.3 % (0.0-5.0); NEUTROPHILS # 4.5 10^3/uL (1.5-8.5); NEUTROPHILS % 50.6 % (36.0-66.0); PLATELET COUNT, AUTOMATED 242 10^3/uL (150-450)
[2019-10-16 02:50] LABS: INFLUENZA A AMPLIFICATION NEGATIVE (NEGATIVE); INFLUENZA B AMPLIFICATION NEGATIVE (NEGATIVE)
--- NOTE | 2019-10-16 03:50 | REPVR ---
PROCEDURE INFORMATION: Exam: US Pelvis Complete, Transabdominal Exam date and time: 10/16/19 (2:59am) Age: 34 years old Clinical indication: Pelvic pain TECHNIQUE: Imaging protocol: Real-time transabdominal pelvic ultrasound with image documentation. Complete examination. COMPARISON: US PELVIS of 04/24/19 FINDINGS: The LMP is not provided. The uterus is anteverted, measuring 9.2 x 5.3 x 7.9 cm in dimensions. No uterine mass is seen. The endometrium is thin (5.3 mm thickness). The right ovary measures 3.6 x 2.8 x 2.4 cm in size. Small right ovarian cyst (1.4 cm size). The left ovary measures 3.1 x 2.5 x 2.8 cm in size. No free pelvic fluid is seen. No solid adnexal masses. IMPRESSION: No acute pathology. No solid pelvic mass. No free fluid. Small right ovarian cyst (1.4 cm size). Electronically signed by: Radha Diez On 10/16/2019 03:49:43 AM
[2019-10-16 06:03] VITALS: BP 131/65
--- NOTE | 2019-10-16 08:09 | REP ---
Acute abdominal series: Three views. History: Lower abdomen pain. Rule out free air. Comparison chest x-ray is from May 15, 2019. Findings: Upright chest radiograph is normal. There is no evidence of infiltrate or free subdiaphragmatic air. Heart is not enlarged. Pleural angles are sharp. Supine and erect views of the abdomen show normal bowel gas pattern. Air and stool seen in a nondistended colon. No small bowel dilation is seen. Psoas margins and flank stripes are intact. No mass, organomegaly, or pathologic calcification is seen. Impression: Negative abdominal series. Electronically Signed by Srinivas Godinez MD 10/16/2019 08:00 A
== END 2019-10-16 06:04 | disposition home or self-care (01) ==
LOC: M ED 00:10
DX: B34.9 Viral infection, unspecified (principal); R05 Cough; R09.82 Postnasal drip; K58.9 Irritable bowel syndrome, unspecified; F43.10 Post-traumatic stress disorder, unspecified; K50.919 Crohn's disease, unspecified, with unspecified complications; F17.200 Nicotine dependence, unspecified, uncomplicated; Z79.82 Long term (current) use of aspirin; Z88.5 Allergy status to narcotic agent
CPT/HCPCS: 74021; 76856; 80047; 81001; 84702; 85025; 85652; 86140; 87631; 87880; 99284; Q0162

== ENCOUNTER 2019-11-27 17:29 | Emergency (ER) | payer OTHER ==
[2019-11-27 19:41] LABS: BASO # 0.1 10^3/uL (0.0-0.2); BASO % 0.5 % (0.0-1.0); EOS # 0.4 10^3/uL (0.0-0.5); EOS % 4.3 % (0.0-3.0); HEMATOCRIT 47.8 % (36.0-47.0); HEMOGLOBIN 15.1 g/dl (12.0-15.5); LYMPH # 3.6 10^3/uL (1.5-5.0); LYMPH % 36.6 % (24.0-44.0); MEAN CORPUSCULAR HGB CONC 31.6 g/dl (32.0-36.5); MEAN CORPUSCULAR VOLUME 85.4 fl (80.0-96.0); MONO # 0.6 10^3/uL (0.0-0.8); MONO % 6.5 % (0.0-5.0); NEUTROPHILS # 5.1 10^3/uL (1.5-8.5); NEUTROPHILS % 51.9 % (36.0-66.0); PLATELET COUNT, AUTOMATED 310 10^3/uL (150-450); WHITE BLOOD COUNT 9.8 10^3/uL (4.0-10.0)
[2019-11-27] MEDS ORDERED: MORPHINE 4 MG/ML 1ML VIAL/SYRINGE (J2270) IV ONE (19:45)
[2019-11-27 20:01] LABS: HCG, SERUM QUALITATIVE NEGATIVE (NEGATIVE)
[2019-11-27 20:05] LABS: ALBUMIN 3.9 GM/DL (3.2-5.2); ALT/SGPT 23 U/L (12-78); BILIRUBIN,DIRECT < 0.1 MG/DL (0.0-0.2); BILIRUBIN,TOTAL 0.2 MG/DL (0.2-1.0); BLOOD UREA NITROGEN 11 MG/DL (7-18); CALCIUM LEVEL 8.9 MG/DL (8.5-10.1); CARBON DIOXIDE LEVEL 30 MEQ/L (21-32); CHLORIDE LEVEL 106 MEQ/L (98-107); CREATININE FOR GFR 0.92 MG/DL (0.55-1.30); GLOMERULAR FILTRATION RATE > 60.0 (>60); GLUCOSE, FASTING 96 MG/DL (70-100); HCG, SERUM QUANTITATIVE < 1.0 MIU/ML; LIPASE 107 U/L (73-393); POTASSIUM SERUM 4.3 MEQ/L (3.5-5.1); SODIUM LEVEL 141 MEQ/L (136-145); THYROXINE (T4) 9.8 UG/DL (4.5-12.0); TOTAL PROTEIN 7.9 GM/DL (6.4-8.2)
[2019-11-27] MEDS ORDERED: ISOVUE-370 76% 100ML VIAL (Q9967) As Ordered ONE (20:07)
--- NOTE | 2019-11-27 23:52 | REPVR ---
PROCEDURE INFORMATION: Exam: CT Abdomen And Pelvis With Contrast Exam date and time: 11/27/2019 10:40 PM Age: 34 years old Clinical indication: Abdominal pain; Localized; Lower; Additional info: Lower abd pain TECHNIQUE: Imaging protocol: Computed tomography of the abdomen and pelvis with intravenous contrast. Radiation optimization: All CT scans at this facility use at least one of these dose optimization techniques: automated exposure control; mA and/or kV adjustment per patient size (includes targeted exams where dose is matched to clinical indication); or iterative reconstruction. Contrast material: ISO; Contrast volume: 100 ml; Contrast route: AC; COMPARISON: CT ABD/PEL W/IV CONTRAST ONLY 12/16/2018 7:40 PM FINDINGS: Liver: Mild diffuse fatty infiltration of liver. Gallbladder and bile ducts: Normal. No calcified stones. No ductal dilation. Pancreas: Normal. No ductal dilation. Spleen: Normal. No splenomegaly. Adrenals: Normal. No mass. Kidneys and ureters: Normal. No hydronephrosis. Stomach and bowel: Moderate fecal loading in the colon. No obstruction. No mucosal thickening. Appendix: Status post appendectomy. Intraperitoneal space: Unremarkable. No free air. No significant fluid collection. Vasculature: Unremarkable. No abdominal aortic aneurysm. Lymph nodes: Unremarkable. No enlarged lymph nodes. Bladder: Unremarkable as visualized. Reproductive: Unremarkable as visualized. Bones/joints: Unremarkable. No acute fracture. Soft tissues: Unremarkable. IMPRESSION: IMPRESSION: No bowel dilatation or obstruction. Moderate fecal loading in the colon. Electronically signed by: Maritza Medley On 11/27/2019 23:51:56 PM
[2019-11-28] MEDS ORDERED: MIRA3350 PO (00:07)
[2019-11-28] MEDS ORDERED: MAGN296S16 PO (00:07)
[2019-11-28 00:22] VITALS: BP 122/62
== END 2019-11-28 00:24 | disposition home or self-care (01) ==
LOC: M ED 17:29
DX: K59.00 Constipation, unspecified (principal); R05 Cough; K50.919 Crohn's disease, unspecified, with unspecified complications; K58.9 Irritable bowel syndrome, unspecified; K21.9 Gastro-esophageal reflux disease without esophagitis; M54.9 Dorsalgia, unspecified; F41.9 Anxiety disorder, unspecified; F32.9 Major depressive disorder, single episode, unspecified; F43.10 Post-traumatic stress disorder, unspecified; E87.6 Hypokalemia; F17.200 Nicotine dependence, unspecified, uncomplicated; E66.9 Obesity, unspecified
CPT/HCPCS: 36415; 74177; 80048; 80076; 81001; 83690; 84436; 84443; 84702; 84703; 85025; 96374; 99284; J2270; Q9967

== ENCOUNTER → 2019-12-11 | Outpatient (REF) | payer OTHER ==
[~2019-12-11] MED LIST changes: +MAGN296S16 PO; +MIRA3350 PO
[2019-12-11 12:22] LABS: INFLUENZA A AMPLIFICATION NEGATIVE (NEGATIVE); INFLUENZA B AMPLIFICATION POSITIVE (NEGATIVE)
== END ==
LOC: M LAB REF 11:24
PROVIDERS: ATTEND Physician Assistant
DX: R53.83 Other fatigue (principal)

== ENCOUNTER → 2020-01-18 | Outpatient (CLI) | payer OTHER | LOC: M LAB 09:46 | PROVIDERS: ATTEND Obstetrics & Gynecology | DX: N97.0 Female infertility associated with anovulation (principal) ==

== ENCOUNTER → 2020-01-20 | Outpatient (REF) | payer OTHER | LOC: M PLALAB 13:24 | PROVIDERS: ATTEND Obstetrics & Gynecology | DX: N97.0 Female infertility associated with anovulation (principal) ==

== ENCOUNTER → 2020-01-29 | Outpatient (CLI) | payer OTHER ==
[2020-01-29 12:23] LABS: BASO % 0.4 % (0.0-1.0); EOS # 0.3 10^3/uL (0.0-0.5); HEMATOCRIT 44.1 % (36.0-47.0); HEMOGLOBIN 14.4 g/dl (12.0-15.5); LYMPH # 2.4 10^3/uL (1.5-5.0); LYMPH % 35.3 % (24.0-44.0); MEAN CORPUSCULAR HEMOGLOBIN 27.7 pg (27.0-33.0); MEAN CORPUSCULAR HGB CONC 32.7 g/dl (32.0-36.5); MEAN CORPUSCULAR VOLUME 84.8 fl (80.0-96.0); MONO # 0.5 10^3/uL (0.0-0.8); MONO % 6.9 % (0.0-5.0); NEUTROPHILS # 3.6 10^3/uL (1.5-8.5); NEUTROPHILS % 53.3 % (36.0-66.0); PLATELET COUNT, AUTOMATED 249 10^3/uL (150-450); WHITE BLOOD COUNT 6.8 10^3/uL (4.0-10.0)
[2020-01-29 12:49] LABS: ALBUMIN 3.6 GM/DL (3.2-5.2); ALT/SGPT 27 U/L (12-78); BILIRUBIN,DIRECT < 0.1 MG/DL (0.0-0.2); BILIRUBIN,TOTAL 0.3 MG/DL (0.2-1.0); BLOOD UREA NITROGEN 11 MG/DL (7-18); C REACTIVE PROTEIN QUANTITATIV 0.41 MG/DL (0.00-0.30); CREATININE FOR GFR 0.75 MG/DL (0.55-1.30); GLOMERULAR FILTRATION RATE > 60.0 (>60); TOTAL PROTEIN 7.4 GM/DL (6.4-8.2)
[2020-01-29 15:24] LABS: ERYTHROCYTE SEDIMENTATION RATE 4 mm/hr (0-20)
== END ==
LOC: M LAB 11:51
PROVIDERS: ATTEND Internal Medicine Gastroenterology
DX: K60.5 Anorectal fistula (principal); K50.813 Crohn's disease of both small and large intestine with fistula

== ENCOUNTER → 2020-02-12 | Outpatient (CLI) | payer OTHER ==
[~2020-02-12] MED LIST changes: +CYCL-707 PO; -CYCL10TA PO
== END ==
LOC: M LABSMTC 09:54
PROVIDERS: ATTEND Family Medicine
DX: Z11.59 Encounter for screening for other viral diseases (principal); Z20.828 Contact with and (suspected) exposure to other viral communicable diseases

== ENCOUNTER → 2020-02-18 | Outpatient (REF) | payer OTHER ==
[2020-02-18 17:28] LABS: BASO % 0.5 % (0.0-1.0); EOS # 0.3 10^3/uL (0.0-0.5); EOS % 4.3 % (0.0-3.0); HEMATOCRIT 45.7 % (36.0-47.0); HEMOGLOBIN 15.1 g/dl (12.0-15.5); MEAN CORPUSCULAR HEMOGLOBIN 28.1 pg (27.0-33.0); MEAN CORPUSCULAR VOLUME 84.9 fl (80.0-96.0); MONO # 0.6 10^3/uL (0.0-0.8); MONO % 7.1 % (0.0-5.0); NEUTROPHILS # 3.8 10^3/uL (1.5-8.5); NEUTROPHILS % 48.8 % (36.0-66.0); PLATELET COUNT, AUTOMATED 310 10^3/uL (150-450); RED BLOOD COUNT 5.38 10^6/uL (4.00-5.40); WHITE BLOOD COUNT 7.7 10^3/uL (4.0-10.0)
[2020-02-18 17:59] LABS: ALBUMIN 3.8 GM/DL (3.2-5.2); ALT/SGPT 21 U/L (12-78); BILIRUBIN,TOTAL 0.3 MG/DL (0.2-1.0); BLOOD UREA NITROGEN 7 MG/DL (7-18); CALCIUM LEVEL 9.3 MG/DL (8.5-10.1); CARBON DIOXIDE LEVEL 29 MEQ/L (21-32); CHLORIDE LEVEL 104 MEQ/L (98-107); CHOLESTEROL LEVEL 194 MG/DL (<200); CHOLESTEROL RISK RATIO 4.217 (<5); CREATININE FOR GFR 0.78 MG/DL (0.55-1.30); FREE T4 1.02 NG/DL (0.76-1.46); GLOMERULAR FILTRATION RATE > 60.0 (>60); GLUCOSE, FASTING 83 MG/DL (70-100); HDL CHOLESTEROL 46 MG/DL (>40); LDL CHOLESTEROL 123 MG/DL (<100); NON-HDL-C 148 MG/DL; POTASSIUM SERUM 4.3 MEQ/L (3.5-5.1); SODIUM LEVEL 139 MEQ/L (136-145); TOTAL 25(OH) VITAMIN D 14.8 NG/ML (30.0-100.0); TOTAL PROTEIN 7.8 GM/DL (6.4-8.2); TRIGLYCERIDES LEVEL 126 MG/DL (<150)
[2020-02-18 18:01] LABS: HEMOGLOBIN A1c 5.9 %
[2020-02-18 18:08] LABS: APPEARANCE, URINE CLEAR (CLEAR); BACTERIA, URINE AUTO 1+ (NEGATIVE); BILIRUBIN, URINE AUTO NEGATIVE (NEGATIVE); BLOOD, URINE BLOOD NEGATIVE (NEGATIVE); COLOR, URINE YELLOW (YELLOW); GLUCOSE, URINE (UA) AUTO NEGATIVE (NEGATIVE); KETONE, URINE AUTO NEGATIVE (NEGATIVE); LEUKOCYTE ESTERASE, URINE AUTO NEGATIVE (NEGATIVE); NITRITE, URINE AUTO NEGATIVE (NEGATIVE); PROTEIN, URINE AUTO NEGATIVE (NEGATIVE); RBC, URINE AUTO 0 /HPF (0-3); SPECIFIC GRAVITY URINE AUTO 1.006 (1.002-1.035); SQUAMOUS EPITHELIAL CELL UR AU 1 /HPF (0-6); UROBILINOGEN, URINE AUTO 0.2 mg/dL (0.0-2.0); WBC, URINE AUTO 1 /HPF (0-3)
[2020-02-18 18:39] LABS: HIV 1&2 SCREEN CENTAUR NEGATIVE (NEGATIVE)
== END ==
LOC: M LAB REF 16:24
PROVIDERS: ATTEND Nurse Practitioner Family
DX: Z13.9 Encounter for screening, unspecified (principal); Z11.3 Encounter for screening for infections with a predominantly sexual mode of transmission

== ENCOUNTER → 2020-02-26 | Outpatient (CLI) | payer OTHER | LOC: M INFU 09:55 | PROVIDERS: ATTEND Internal Medicine Gastroenterology | DX: K50.90 Crohn's disease, unspecified, without complications (principal); Z53.9 Procedure and treatment not carried out, unspecified reason ==

== ENCOUNTER → 2020-05-20 | Outpatient (CLI) | payer OTHER ==
[~2020-05-20] MED LIST changes: +CLOMID PO; +ENTY1INJ IV; +METF850T4; +MULTCAP PO; +VEDOLIZUMAB 300 MG in NS 250 ML IV ONE
[2020-05-20 11:08] VITALS: BP 128/84
== END ==
LOC: M INFU 10:46
PROVIDERS: ATTEND Internal Medicine Gastroenterology
DX: K50.90 Crohn's disease, unspecified, without complications (principal)
CPT/HCPCS: 96365; J3380

== ENCOUNTER → 2020-06-08 | Outpatient (REF) | payer OTHER, MEDICAID ==
[~2020-06-08] MED LIST changes: -VEDOLIZUMAB 300 MG in NS 250 ML IV ONE
[2020-07-08 19:48] LABS: BASO % 0.4 % (0.0-1.0); EOS # 0.3 10^3/uL (0.0-0.5); EOS % 3.7 % (0.0-3.0); HEMATOCRIT 46.4 % (36.0-47.0); HEMOGLOBIN 15.2 g/dl (12.0-15.5); LYMPH # 2.2 10^3/uL (1.5-5.0); LYMPH % 31.8 % (24.0-44.0); MEAN CORPUSCULAR HEMOGLOBIN 27.3 pg (27.0-33.0); MEAN CORPUSCULAR HGB CONC 32.8 g/dl (32.0-36.5); MEAN CORPUSCULAR VOLUME 83.5 fl (80.0-96.0); MONO # 0.4 10^3/uL (0.0-0.8); NEUTROPHILS # 4.1 10^3/uL (1.5-8.5); NEUTROPHILS % 57.8 % (36.0-66.0); PLATELET COUNT, AUTOMATED 259 10^3/uL (150-450); RED BLOOD COUNT 5.56 10^6/uL (4.00-5.40)
[2020-07-22 13:30] LABS: ALBUMIN 3.6 GM/DL (3.2-5.2); ALT/SGPT 29 U/L (12-78); BILIRUBIN,TOTAL 0.3 MG/DL (0.2-1.0); BLOOD UREA NITROGEN 9 MG/DL (7-18); CALCIUM LEVEL 8.7 MG/DL (8.5-10.1); CARBON DIOXIDE LEVEL 27 MEQ/L (21-32); CHLORIDE LEVEL 106 MEQ/L (98-107); CHOLESTEROL LEVEL 180 MG/DL (<200); CREATININE FOR GFR 0.86 MG/DL (0.55-1.30); GLOMERULAR FILTRATION RATE > 60.0 (>60); GLUCOSE, FASTING 90 MG/DL (70-100); HDL CHOLESTEROL 36 MG/DL (>40); LDL CHOLESTEROL 120 MG/DL (<100); NON-HDL-C 144 MG/DL; POTASSIUM SERUM 4.4 MEQ/L (3.5-5.1); SODIUM LEVEL 138 MEQ/L (136-145); TOTAL 25(OH) VITAMIN D 27.8 NG/ML (30.0-100.0); TOTAL PROTEIN 7.3 GM/DL (6.4-8.2); TRIGLYCERIDES LEVEL 119 MG/DL (<150)
[2020-07-22 13:31] LABS: HEMOGLOBIN A1c 5.3 %
== END ==
LOC: M LAB REF 09:13
PROVIDERS: ATTEND Nurse Practitioner Family
DX: E55.9 Vitamin D deficiency, unspecified (principal); R73.03 Prediabetes; M54.89 Other dorsalgia; J01.90 Acute sinusitis, unspecified; F17.210 Nicotine dependence, cigarettes, uncomplicated; Z13.9 Encounter for screening, unspecified; E66.09 Other obesity due to excess calories

== ENCOUNTER 2020-07-13 15:26 | Emergency (ER) | payer MEDICAID, OTHER ==
[~2020-07-13] VITALS: Ht 180.3 cm; Wt 111.9 kg
[~2020-07-13 15:26] MED LIST changes: -ENTY1INJ IV; -METF850T4
[2020-07-13] MEDS ORDERED: ENTY1INJ IV (15:42)
[2020-07-13] MEDS ORDERED: METF850T4 (15:42)
[2020-07-13] MEDS ORDERED: NS 1,000 ML IV ONE (17:15)
[2020-07-13] MEDS ORDERED: ONDANSETRON 4MG/2ML VIAL IV ONE (17:15)
[2020-07-13 17:38] LABS: BASO % 0.3 % (0.0-1.0); EOS # 0.4 10^3/uL (0.0-0.5); HEMATOCRIT 45.1 % (36.0-47.0); HEMOGLOBIN 14.7 g/dl (12.0-15.5); LYMPH # 3.3 10^3/uL (1.5-5.0); LYMPH % 28.8 % (24.0-44.0); MEAN CORPUSCULAR HEMOGLOBIN 27.6 pg (27.0-33.0); MEAN CORPUSCULAR HGB CONC 32.6 g/dl (32.0-36.5); MEAN CORPUSCULAR VOLUME 84.8 fl (80.0-96.0); MONO # 0.8 10^3/uL (0.0-0.8); MONO % 6.6 % (0.0-5.0); PLATELET COUNT, AUTOMATED 279 10^3/uL (150-450); RED BLOOD COUNT 5.32 10^6/uL (4.00-5.40); WHITE BLOOD COUNT 11.5 10^3/uL (4.0-10.0)
[2020-07-13 17:58] LABS: ALBUMIN 3.5 GM/DL (3.2-5.2); ALT/SGPT 20 U/L (12-78); BILIRUBIN,DIRECT < 0.1 MG/DL (0.0-0.2); BILIRUBIN,TOTAL 0.2 MG/DL (0.2-1.0); BLOOD UREA NITROGEN 12 MG/DL (7-18); CARBON DIOXIDE LEVEL 28 MEQ/L (21-32); CHLORIDE LEVEL 106 MEQ/L (98-107); CREATININE FOR GFR 0.82 MG/DL (0.55-1.30); GLOMERULAR FILTRATION RATE > 60.0 (>60); GLUCOSE, FASTING 91 MG/DL (70-100); LIPASE 76 U/L (73-393); POTASSIUM SERUM 4.3 MEQ/L (3.5-5.1); SODIUM LEVEL 138 MEQ/L (136-145); TOTAL PROTEIN 7.7 GM/DL (6.4-8.2)
--- NOTE | 2020-07-13 18:26 | REPVR ---
PROCEDURE INFORMATION: Exam: US Nonobstetric Pelvis; Complete Exam date and time: 07/13/2020 6:12 PM Age: 34 years old Clinical indication: Pelvic pain; Additional info: Pelvic pain r>l TECHNIQUE: Imaging protocol: Transabdominal pelvic nonobstetric ultrasound. Complete exam. Real time ultrasound with image documentation. COMPARISON: US PELVIC NON-OB COMPLETE 10/16/2019 2:58 AM FINDINGS: Uterus/cervix: Uterus measures 5.9 x 2.6 x 4.6 cm. Endometrial echo complex measures 2.2 mm. Right adnexa: Right ovary measures 3.8 x 2.4 x 2.5 cm. Left adnexa: Left ovary measures 2.2 x 2.4 x 2.3 cm. Intraperitoneal space: None. Bladder: Normal. IMPRESSION: Unremarkable examination. Electronically signed by: Juan Isidro On 07/13/2020 18:25:38 PM
[2020-07-13 20:16] LABS: CHLAMYDIA DNA AMPLIFICATION NEGATIVE (NEGATIVE); GC DNA AMPLIFICATION NEGATIVE (NEGATIVE)
[2020-07-13 20:48] VITALS: BP 121/69
[2020-07-13 20:58] LABS: HCG, SERUM QUANTITATIVE < 1.0 MIU/ML
== END 2020-07-13 20:50 | disposition home or self-care (01) ==
LOC: M ED 15:26
DX: R10.2 Pelvic and perineal pain (principal); Z87.59 Personal history of other complications of pregnancy, childbirth and the puerperium; Z86.19 Personal history of other infectious and parasitic diseases; R51 Headache; F41.9 Anxiety disorder, unspecified; F43.10 Post-traumatic stress disorder, unspecified; E28.2 Polycystic ovarian syndrome; K50.919 Crohn's disease, unspecified, with unspecified complications; K58.9 Irritable bowel syndrome, unspecified; K57.92 Diverticulitis of intestine, part unspecified, without perforation or abscess without bleeding; G89.29 Other chronic pain; M54.9 Dorsalgia, unspecified; Z90.49 Acquired absence of other specified parts of digestive tract; F17.200 Nicotine dependence, unspecified, uncomplicated; Z79.899 Other long term (current) drug therapy; Z88.8 Allergy status to other drugs, medicaments and biological substances; Z88.5 Allergy status to narcotic agent
CPT/HCPCS: 76856; 80048; 80076; 81001; 83690; 84702; 85025; 87210; 87661; 93976; 96361; 96374; 99284; J2405

== ENCOUNTER → 2020-08-02 | Outpatient (CLI) | payer OTHER ==
[~2020-08-02] MED LIST changes: +ENTY1INJ IV; +METF850T4; +PROHANCE 279.3MG/ML 15ML VIAL As Ordered ONE; +PROHANCE 279.3MG/ML 5ML VIAL As Ordered ONE
--- NOTE | 2020-08-10 08:13 | REP ---
MRI ABDOMEN WITH AND WITHOUT CONTRAST HISTORY: Crohn's disease. TECHNIQUE: Multiple sequences obtained in the axial and coronal planes prior to and following the intravenous administration of 20 mL ProHance. COMPARISON: Correlation made with CT 11/27/2019. FINDINGS: The liver is upper limits of normal in size about 17 cm in length. No liver mass is seen. The spleen is not enlarged. There is no intrinsic splenic abnormality. The adrenal glands are normal. The pancreas demonstrates no mass. There is no pancreatic duct or common bile duct dilatation. The gallbladder is grossly unremarkable. The kidneys demonstrate no mass or hydronephrosis. There is no adenopathy or free fluid in the abdomen. IMPRESSION: Negative MRI abdomen. MTDD
--- NOTE | 2020-08-11 15:38 | REP ---
MRI PELVIS WITHOUT AND WITH IV GADOLINIUM HISTORY: Crohns disease. Anal fistula. COMPARISON STUDY: November 27, 2019. TECHNIQUE: The study was accomplished in two sittings dated August 02, 2020, and August 03, 2020. Per my associate Dr. Padgett request, the patient was recalled for post gadolinium axial and T2 fat sat images. Sequences include spin echo, turbo spin echo, and inversion recovery T1 and T2 weighted scans along with diffusion weighted images, and post contrast fat sat inversion recovery images. MRI FINDINGS: No free fluid is seen. Urinary bladder is largely empty but appears intact. Uterus is somewhat enlarged measuring 10.9 x 6.4 x 7.2 cm in overall dimension. No ovarian mass lesion is seen on either side. No free fluid is noted in the pelvic reflections. No pelvic adenopathy or mass is seen. There is an elongate oval shaped fluid collection in the perineum inferiorly, just lateral to the vagina and anterior to the anus on the right side. On T2 weighted scans, this shows a T2 hyperintensity, and on T1 weighted scans, there is hypointensity. There is restricted diffusion. There is peripheral contrast enhancement in the margin of this but not in the anterior. It measures 2.2 cm in greatest craniocaudal span by 0.8 cm in greatest thickness. It is compatible with a small abscess collection or perineal cyst. No other abnormality is seen in the perineum or perirectal region. Pelvic floor structures are otherwise unremarkable. IMPRESSION: 2.2 cm elongate fluid collection just lateral to the perineal introitus at the level of the vagina on the right consistent with a small abscess or cyst. Otherwise negative. Mildly enlarged uterus. MTDD
== END ==
LOC: M RAD 12:17
PROVIDERS: ATTEND Internal Medicine Gastroenterology
DX: K50.813 Crohn's disease of both small and large intestine with fistula (principal); K60.5 Anorectal fistula; L02.215 Cutaneous abscess of perineum
CPT/HCPCS: 72197; 74183; A9576

== ENCOUNTER → 2020-08-20 | Outpatient (REF) | payer OTHER ==
[~2020-08-20] MED LIST changes: -PROHANCE 279.3MG/ML 15ML VIAL As Ordered ONE; -PROHANCE 279.3MG/ML 5ML VIAL As Ordered ONE
== END ==
LOC: M PLALAB 15:34
PROVIDERS: ATTEND Obstetrics & Gynecology
DX: N97.0 Female infertility associated with anovulation (principal)

== ENCOUNTER → 2020-08-25 | Outpatient (REF) | payer OTHER | LOC: M PLALAB 11:48 | PROVIDERS: ATTEND Obstetrics & Gynecology | DX: N97.0 Female infertility associated with anovulation (principal) ==

== ENCOUNTER 2020-09-10 11:35 | Outpatient (CLI) | payer OTHER ==
[~2020-09-10] VITALS: Ht 180.3 cm; Wt 110.4 kg
[~2020-09-10 11:35] MED LIST changes: +VEDOLIZUMAB 300 MG in NS 250 ML IV ONE
[2020-09-10] MEDS ORDERED: VEDOLIZUMAB 300 MG in NS 250 ML IV ONE (12:00)
[2020-09-10 12:03] VITALS: BP 121/68
[2020-09-10 12:10] VITALS: BP 121/68
[2020-09-10 12:50] VITALS: BP 129/78
[2020-09-10 13:02] VITALS: BP 129/78
== END 2020-09-10 13:00 | disposition home or self-care (01) ==
LOC: M INFU 11:35
PROVIDERS: ATTEND Internal Medicine Gastroenterology
DX: K50.90 Crohn's disease, unspecified, without complications (principal); Z88.6 Allergy status to analgesic agent
CPT/HCPCS: 96365; J3380

== ENCOUNTER 2020-10-01 08:09 | Emergency (ER) | payer OTHER ==
[~2020-10-01] VITALS: Ht 180.3 cm; Wt 110.8 kg
[~2020-10-01 08:09] MED LIST changes: -VEDOLIZUMAB 300 MG in NS 250 ML IV ONE
[2020-10-01] MEDS ORDERED: LIDOCAINE 5% (LIDODERM) PATCH TD ONE (09:00)
[2020-10-01] MEDS ORDERED: ACETAMINOPHEN 500 MG TAB PO ONE (09:00)
[2020-10-01] MEDS ORDERED: CYCLOBENZAPRINE 10MG TABLET PO ONE (09:00)
--- NOTE | 2020-10-01 09:29 | REP ---
INDICATION: back pain radiating to LLE. COMPARISON: Comparison CT imaging November 27, 2019.. TECHNIQUE: Helical scanning is acquired 4 mm axial images are re-formatted. Coronal and sagittal MPR images are included. FINDINGS: Lumbar vertebral body heights are preserved. Alignment is normal. There is no evidence of spondylolysis or spondylolisthesis. No bony destructive lesion is seen. No fracture or collapse is observed. There is some degenerative disc disease at the L4-5 intervertebral disc level with mild disc space narrowing and reactive sclerosis. Minimal spurring is present here. This is unchanged from November 27, 2019. There is mild diffuse disc bulging at the L4-5 disc. In combination with mild ligamentum flavum hypertrophy, this produces mild central canal stenosis. The midline AP dimension of the thecal sac at L4-5 is 8 mm. It has a somewhat triangular-shaped. No bony neural foraminal narrowing is seen. At L5-S1, there is minimal osteoarthritic facet hypertrophy. No disc protrusion is seen. No thecal sac compression. The L3-4, L2-3, and L1-2 disc margins appear unremarkable. IMPRESSION: Degenerative disc and facet changes at L4-5 and L5-S1 respectively. Diffuse disc bulging at L4-5 contributing to mild central canal stenosis at L4-5. <Electronically signed by Silverio Godinez > 10/01/20 [id number]
--- NOTE | 2020-10-01 09:35 | REP ---
INDICATION: left hip pain. COMPARISON: None TECHNIQUE: AP pelvis and two views left hip FINDINGS: The hip joint spaces are symmetric and relatively well maintained. There is no acute fracture or destructive osseous lesion. IMPRESSION: Negative <Electronically signed by Romie Abbasi > 10/01/20 [id number]
--- NOTE | 2020-10-01 09:38 | REP ---
INDICATION: Left knee pain/swelling COMPARISON: None TECHNIQUE: Five views FINDINGS: There is a subtle sclerotic lesion in the distal femoral diaphysis which is cortical based. This measures approximately 3.3 cm. There is no acute fracture. The compartments are symmetric and well maintained. IMPRESSION: Cortical based sclerotic femoral diaphyseal bone lesion as described above. Pre and post gadolinium enhanced MRI is recommended for further evaluation. <Electronically signed by Romie Abbasi > 10/01/20 0948
[2020-10-01] MEDS ORDERED: KETOROLAC 30 MG/ML 1ML VIAL IM ONE (10:45)
[2020-10-01] MEDS ORDERED: CYCL7.5T32 PO (10:52)
[2020-10-01] MEDS ORDERED: LIDO5DIS41 TOP (10:52)
[2020-10-01 11:01] VITALS: BP 114/67
--- NOTE | 2020-10-01 11:06 | ED PDOC ---
Post-Departure Follow-Up nikhil and mikaela duffy faxed formal report of left knee film for fu Cheryl Mendez MD Oct 01, 2020 11:06
[2020-10-01] MEDS ORDERED: **NOTE PATIENT COMMENT** MISC XX SCH (21:00)
== END 2020-10-01 11:31 | disposition home or self-care (01) ==
LOC: M ED 08:09
DX: S83.92XA Sprain of unspecified site of left knee, initial encounter (principal); M54.17 Radiculopathy, lumbosacral region; M51.87 Other intervertebral disc disorders, lumbosacral region; M51.27 Other intervertebral disc displacement, lumbosacral region; M48.07 Spinal stenosis, lumbosacral region; M54.42 Lumbago with sciatica, left side; M25.562 Pain in left knee; M25.462 Effusion, left knee; M89.8X5 Other specified disorders of bone, thigh; X50.0XXA Overexertion from strenuous movement or load, initial encounter; Y92.9 Unspecified place or not applicable; Y93.9 Activity, unspecified; Y99.9 Unspecified external cause status; E78.5 Hyperlipidemia, unspecified; F41.9 Anxiety disorder, unspecified; F32.9 Major depressive disorder, single episode, unspecified; K58.9 Irritable bowel syndrome, unspecified; K57.92 Diverticulitis of intestine, part unspecified, without perforation or abscess without bleeding; F17.200 Nicotine dependence, unspecified, uncomplicated; Z79.84 Long term (current) use of oral hypoglycemic drugs; Z79.899 Other long term (current) drug therapy; Z88.8 Allergy status to other drugs, medicaments and biological substances; Z88.5 Allergy status to narcotic agent
CPT/HCPCS: 72131; 73502; 73564; 84702; 96372; 99284; J1885

== ENCOUNTER → 2020-11-25 | Outpatient (CLI) | payer OTHER ==
[~2020-11-25] MED LIST changes: +CYCL7.5T32 PO; +LIDO5DIS41 TOP
[2020-11-25 13:09] LABS: BASO % 0.5 % (0.0-1.0); EOS # 0.3 10^3/uL (0.0-0.5); EOS % 4.1 % (0.0-3.0); HEMATOCRIT 42.2 % (36.0-47.0); HEMOGLOBIN 13.5 g/dl (12.0-15.5); LYMPH # 2.5 10^3/uL (1.5-5.0); LYMPH % 40.7 % (24.0-44.0); MEAN CORPUSCULAR VOLUME 84.4 fl (80.0-96.0); MONO # 0.4 10^3/uL (0.0-0.8); MONO % 6.6 % (0.0-5.0); NEUTROPHILS # 2.9 10^3/uL (1.5-8.5); NEUTROPHILS % 47.9 % (36.0-66.0); PLATELET COUNT, AUTOMATED 261 10^3/uL (150-450); WHITE BLOOD COUNT 6.1 10^3/uL (4.0-10.0)
[2020-11-25 14:41] LABS: HEMOGLOBIN A1c 5.3 %
[2020-11-25 15:04] LABS: ALBUMIN 3.7 GM/DL (3.2-5.2); ALT/SGPT 20 U/L (12-78); BILIRUBIN,TOTAL 0.2 MG/DL (0.2-1.0); BLOOD UREA NITROGEN 9 MG/DL (7-18); CALCIUM LEVEL 9.2 MG/DL (8.5-10.1); CARBON DIOXIDE LEVEL 28 MEQ/L (21-32); CHLORIDE LEVEL 105 MEQ/L (98-107); CHOLESTEROL LEVEL 188 MG/DL (<200); CHOLESTEROL RISK RATIO 4.476 (<5); CREATININE FOR GFR 0.78 MG/DL (0.55-1.30); FREE T4 0.95 NG/DL (0.76-1.46); GLOMERULAR FILTRATION RATE > 60.0 (>60); GLUCOSE, FASTING 91 MG/DL (70-100); HDL CHOLESTEROL 42 MG/DL (>40); LDL CHOLESTEROL 125 MG/DL (<100); NON-HDL-C 146 MG/DL; POTASSIUM SERUM 4.2 MEQ/L (3.5-5.1); SODIUM LEVEL 142 MEQ/L (136-145); THYROID STIMULATING HORMONE 0.926 uIU/ML (0.358-3.740); TOTAL 25(OH) VITAMIN D 18.2 NG/ML (30.0-100.0); TOTAL PROTEIN 6.9 GM/DL (6.4-8.2); TRIGLYCERIDES LEVEL 107 MG/DL (<150)
== END ==
LOC: M LAB 12:23
PROVIDERS: ATTEND Nurse Practitioner Family
DX: E56.9 Vitamin deficiency, unspecified (principal)

== ENCOUNTER → 2020-11-25 | Outpatient (CLI) | payer OTHER ==
[2020-11-25 14:45] LABS: BLOOD UREA NITROGEN 8 MG/DL (7-18); CREATININE FOR GFR 0.83 MG/DL (0.55-1.30); GLOMERULAR FILTRATION RATE > 60.0 (>60)
== END ==
LOC: M LAB 12:26
PROVIDERS: ATTEND Physician Assistant
DX: S83.92XA Sprain of unspecified site of left knee, initial encounter (principal); X58.XXXA Exposure to other specified factors, initial encounter; Y92.89 Other specified places as the place of occurrence of the external cause; Y93.89 Activity, other specified; Y99.8 Other external cause status

== ENCOUNTER 2020-12-31 10:41 | Outpatient (CLI) | payer OTHER ==
[~2020-12-31] VITALS: Ht 180.3 cm; Wt 110.8 kg
[2020-12-31] MEDS ORDERED: VEDOLIZUMAB 300 MG in NS 250 ML IV ONE (11:00)
[2020-12-31 11:15] VITALS: BP 117/78
[2020-12-31 13:00] VITALS: BP 125/79
== END 2020-12-31 13:00 | disposition home or self-care (01) ==
LOC: M INFU 10:41
PROVIDERS: ATTEND Internal Medicine Gastroenterology
DX: K50.90 Crohn's disease, unspecified, without complications (principal); Z88.6 Allergy status to analgesic agent
CPT/HCPCS: 96365; J3380

== ENCOUNTER → 2020-12-31 | Outpatient (CLI) | payer OTHER | LOC: M LAB 10:40 | PROVIDERS: ATTEND Nurse Practitioner Family | DX: N92.5 Other specified irregular menstruation (principal) ==

== ENCOUNTER → 2021-01-03 | Outpatient (CLI) | payer OTHER ==
[2021-01-03 12:39] LABS: BLOOD UREA NITROGEN 6 MG/DL (7-18); CREATININE FOR GFR 0.76 MG/DL (0.55-1.30); GLOMERULAR FILTRATION RATE > 60.0 (>60)
== END ==
LOC: M LAB 11:39
PROVIDERS: ATTEND Physician Assistant
DX: S83.512D Sprain of anterior cruciate ligament of left knee, subsequent encounter (principal); X58.XXXA Exposure to other specified factors, initial encounter; Y92.9 Unspecified place or not applicable; Y93.9 Activity, unspecified; Y99.9 Unspecified external cause status

== ENCOUNTER → 2021-01-04 | Outpatient (CLI) | payer OTHER ==
[~2021-01-04] MED LIST changes: +PROHANCE 279.3MG/ML 15ML VIAL As Ordered ONE; +PROHANCE 279.3MG/ML 5ML VIAL As Ordered ONE
--- NOTE | 2021-01-04 15:35 | REP ---
INDICATION: SPRAIN, EVAL LESION. COMPARISON: MRI knee 11/26/2020 and radiographs 10/01/2020. TECHNIQUE: Multiple sequences obtained in the axial, coronal and sagittal planes prior to and following the intravenous administration of 20 mL ProHance. FINDINGS: At the site of the oval eccentric well-defined sclerotic lesion in the distal left femoral shaft on plain films 10/01/2020, there is a corresponding oval eccentric posteriorly located, well-defined lesion which is subcortical in location. It is hypointense on both T1 and T2 weighted images. It does not enhance. There is no corresponding soft tissue mass. It measures approximately 2.5 x 0.8 x 1.5 cm. This is consistent with a benign lesion. It may represent an ossified fibrous lesion. There is a tiny bone island in the femoral head which is low in signal all sequences, measuring approximately 4 mm. There is no bone marrow edema or occult fracture. There is no abnormal bone marrow enhancement. There is a small joint effusion at the knee. The soft tissues of the thigh demonstrate no abnormal signal or enhancement. IMPRESSION: The well-defined sclerotic lesion in the distal femoral shaft corresponds to a well-defined hypointense lesion on both T1 and T2 weighted images with no enhancement or associated soft tissue mass. This is consistent with a benign lesion, such as an ossified fibrous lesion. <Electronically signed by Josiah Astudillo > 01/04/21 [id number]
== END ==
LOC: M RAD 12:50
PROVIDERS: ATTEND Physician Assistant
DX: S83.92XA Sprain of unspecified site of left knee, initial encounter (principal)
CPT/HCPCS: 73720; A9576

== ENCOUNTER → 2021-01-20 | Outpatient (REF) | payer OTHER ==
[~2021-01-20] MED LIST changes: -PROHANCE 279.3MG/ML 15ML VIAL As Ordered ONE; -PROHANCE 279.3MG/ML 5ML VIAL As Ordered ONE
== END ==
LOC: M SFHCWAGY 16:50
PROVIDERS: ATTEND Obstetrics & Gynecology
DX: N97.0 Female infertility associated with anovulation (principal)

== ENCOUNTER 2021-02-25 10:46 | Outpatient (CLI) | payer OTHER ==
[~2021-02-25] VITALS: Ht 185.4 cm; Wt 110.8 kg
[2021-02-25 10:50] VITALS: BP 140/90
[2021-02-25] MEDS ORDERED: VEDOLIZUMAB 300 MG in NS 250 ML IV ONE (11:00)
[2021-02-25 12:10] VITALS: BP 125/85
== END 2021-02-25 12:10 | disposition home or self-care (01) ==
LOC: M INFU 10:46
PROVIDERS: ATTEND Internal Medicine Gastroenterology
DX: K50.90 Crohn's disease, unspecified, without complications (principal); Z88.6 Allergy status to analgesic agent
CPT/HCPCS: 96365; J3380

== ENCOUNTER 2021-03-10 11:10 | Emergency (ER) | payer OTHER ==
[~2021-03-10] VITALS: Ht 180.3 cm; Wt 111.9 kg
[2021-03-10] MEDS ORDERED: DIFL200T PO (13:14)
[2021-03-10 13:33] VITALS: BP 146/92
[2021-03-10 13:41] LABS: CHLAMYDIA DNA AMPLIFICATION NEGATIVE (NEGATIVE); GC DNA AMPLIFICATION NEGATIVE (NEGATIVE)
== END 2021-03-10 13:34 | disposition home or self-care (01) ==
LOC: M ED 11:10
DX: B37.3 Candidiasis of vulva and vagina (principal); E28.2 Polycystic ovarian syndrome; Z87.59 Personal history of other complications of pregnancy, childbirth and the puerperium; Z79.899 Other long term (current) drug therapy; Z88.8 Allergy status to other drugs, medicaments and biological substances; Z88.5 Allergy status to narcotic agent

== ENCOUNTER 2022-07-04 11:24 | Emergency (ER) | payer OTHER ==
[~2022-07-04] VITALS: Ht 180.3 cm; Wt 98.9 kg
[2022-07-04 11:24] VITALS: BP 116/76
[~2022-07-04 11:24] MED LIST changes: -CEFD1CAP8 PO; +CEFD300C41 PO; -DICY20TA11 PO; +DICY20TA20 PO; +DIFL200T PO; +FLUV25TA13 PO; -FLUV25TA2 PO
[2022-07-04] MEDS ORDERED: PHEN30CA21 PO (12:02)
== END 2022-07-04 14:20 | disposition left against medical advice (07) ==
LOC: M ED 11:24
DX: Z53.21 Procedure and treatment not carried out due to patient leaving prior to being seen by health care provider (principal)

== ENCOUNTER 2022-07-11 12:39 | Emergency (ER) | payer OTHER, SELFPAY ==
[~2022-07-11] VITALS: Ht 180.3 cm; Wt 98.2 kg
[~2022-07-11 12:39] MED LIST changes: +PHEN30CA21 PO
[2022-07-11 12:40] VITALS: BP 121/76
== END 2022-07-11 15:25 | disposition left against medical advice (07) ==
LOC: M ED 12:39
DX: Z53.21 Procedure and treatment not carried out due to patient leaving prior to being seen by health care provider (principal)

== ENCOUNTER 2022-07-21 15:51 | Emergency (ER) | payer OTHER ==
[~2022-07-21] VITALS: Ht 180.3 cm; Wt 97.7 kg
[2022-07-21 16:14] VITALS: BP 137/78
[2022-07-21] MEDS ORDERED: MORPHINE 10 MG/ML 1ML VIAL IV ONE ×2 (16:30→17:35)
[2022-07-21] MEDS ORDERED: ONDANSETRON 4MG 2ML VIAL IV ONE (17:55)
[2022-07-21] MEDS ORDERED: NORCO, ANEXSIA 5/325MG TABLET (HYDROcodone/ACETAMINOPHEN) PO ONE (18:00)
[2022-07-21] MEDS ORDERED: HYDR-3713 PO (18:34)
[2022-07-21] MEDS ORDERED: ONDA4TAB6 PO (18:34)
== END 2022-07-21 18:56 | disposition home or self-care (01) ==
LOC: M ED 15:51
DX: S82.452A Displaced comminuted fracture of shaft of left fibula, initial encounter for closed fracture (principal); W19.XXXA Unspecified fall, initial encounter; Y92.099 Unspecified place in other non-institutional residence as the place of occurrence of the external cause; M79.7 Fibromyalgia; K50.90 Crohn's disease, unspecified, without complications; K58.9 Irritable bowel syndrome, unspecified; K21.9 Gastro-esophageal reflux disease without esophagitis; E78.5 Hyperlipidemia, unspecified; F17.200 Nicotine dependence, unspecified, uncomplicated; Z79.899 Other long term (current) drug therapy; Z88.5 Allergy status to narcotic agent; Z88.8 Allergy status to other drugs, medicaments and biological substances
CPT/HCPCS: 29505; 73590; 73610; 96374; 96375; 96376; 99284; J2270; J2405

== ENCOUNTER 2022-10-13 22:51 | Emergency (ER) | payer OTHER ==
[~2022-10-13] VITALS: Ht 180.3 cm; Wt 100.9 kg
[~2022-10-13 22:51] MED LIST changes: +HYDR-3713 PO
[2022-10-13 22:52] VITALS: BP 114/73
== END 2022-10-14 01:06 | disposition left against medical advice (07) ==
LOC: M ED 22:51
DX: Z53.21 Procedure and treatment not carried out due to patient leaving prior to being seen by health care provider (principal)

== ENCOUNTER → 2022-11-20 | Outpatient (CLI) | payer OTHER | LOC: M LAB 10:10 | PROVIDERS: ATTEND Obstetrics & Gynecology | DX: N97.0 Female infertility associated with anovulation (principal) ==

== ENCOUNTER → 2022-11-20 | Outpatient (CLI) | payer OTHER ==
[2022-11-20 12:42] LABS: BASO % 0.4 % (0.0-1.0); EOS # 0.1 10^3/uL (0.0-0.5); EOS % 2.6 % (0.0-3.0); HEMATOCRIT 42.4 % (36.0-47.0); LYMPH # 1.9 10^3/uL (1.5-5.0); LYMPH % 35.5 % (24.0-44.0); MEAN CORPUSCULAR HEMOGLOBIN 27.7 pg (27.0-33.0); MEAN CORPUSCULAR VOLUME 83.8 fl (80.0-96.0); MONO # 0.4 10^3/uL (0.0-0.8); MONO % 6.4 % (2.0-8.0); NEUTROPHILS % 54.6 % (36.0-66.0); PLATELET COUNT, AUTOMATED 243 10^3/uL (150-450); RED BLOOD COUNT 5.06 10^6/uL (4.00-5.40); WHITE BLOOD COUNT 5.5 10^3/uL (4.0-10.0)
[2022-11-20 13:10] LABS: RHEUMATOID FACTOR QUANT < 3.5 IU/ML (<14)
[2022-11-20 13:11] LABS: ALBUMIN 3.5 G/DL (3.2-5.2); ALKALINE PHOSPHATASE 58 U/L (46-116); ALT/SGPT 12 U/L (7.0-40); AST/SGOT 13 U/L (<34); BILIRUBIN,TOTAL 0.5 MG/DL (0.3-1.2); BLOOD UREA NITROGEN 7 MG/DL (9-23); CALCIUM LEVEL 8.5 MG/DL (8.5-10.1); CARBON DIOXIDE LEVEL 25 MMOL/L (20-31); CHLORIDE LEVEL 106 MMOL/L (98-107); CREATININE FOR GFR 0.63 MG/DL (0.55-1.30); GLOMERULAR FILTRATION RATE > 60.0 (>60); GLUCOSE, FASTING 86 MG/DL (60-100); POTASSIUM SERUM 4.2 MMOL/L (3.5-5.1); SODIUM LEVEL 138 MMOL/L (136-145); THYROID STIMULATING HORMONE 1.311 uIU/ML (0.55-4.78); TOTAL PROTEIN 6.9 G/DL (5.7-8.2)
[2022-11-20 13:12] LABS: FOLATE 10.57 NG/ML (>5.4); HEMOGLOBIN A1c 4.9 % (4.0-6.0); TOTAL 25(OH) VITAMIN D 19.9 NG/ML (20.0-100.0)
[2022-11-20 13:13] LABS: ERYTHROCYTE SEDIMENTATION RATE 12 mm/hr (0-20); VITAMIN B12 LEVEL 320 PG/ML (211-911)
== END ==
LOC: M LAB 10:06
PROVIDERS: ATTEND Psychiatry & Neurology Neurology
DX: R20.0 Anesthesia of skin (principal); R53.1 Weakness; E11.9 Type 2 diabetes mellitus without complications

== ENCOUNTER → 2022-12-04 | Outpatient (REF) | payer OTHER, MEDICAID ==
[2022-12-04 17:12] LABS: CHOLESTEROL RISK RATIO 3.42 (<5); HDL CHOLESTEROL 53.8 MG/DL (>40); LDL CHOLESTEROL 116.4 MG/DL (<100)
[2022-12-04 17:16] LABS: THYROID STIMULATING HORMONE 1.919 uIU/ML (0.55-4.78); TOTAL 25(OH) VITAMIN D 21.3 NG/ML (20.0-100.0)
[2022-12-04 17:18] LABS: FREE T4 1.08 NG/DL (0.89-1.76)
== END ==
LOC: M LAB REF 16:40
PROVIDERS: ATTEND Nurse Practitioner Family
DX: Z13.228 Encounter for screening for other metabolic disorders (principal)

== ENCOUNTER → 2022-12-13 | Outpatient (REF) | LOC: M PLAIMG 12:16 | PROVIDERS: ATTEND Internal Medicine | DX: R52 Pain, unspecified (principal) ==

== ENCOUNTER → 2023-03-15 | Outpatient (REF) | payer OTHER, MEDICAID | LOC: M LAB REF 16:24 | PROVIDERS: ATTEND Nurse Practitioner Family | DX: E88.81 Metabolic syndrome and other insulin resistance (principal) ==

== ENCOUNTER → 2023-04-03 | Outpatient (REF) | payer OTHER, MEDICAID ==
[2023-04-03 13:46] LABS: APPEARANCE, URINE HAZY (CLEAR); BACTERIA, URINE AUTO NEGATIVE (NEGATIVE); BILIRUBIN, URINE AUTO NEGATIVE (NEGATIVE); BLOOD, URINE BLOOD NEGATIVE (NEGATIVE); COLOR, URINE YELLOW (YELLOW); GLUCOSE, URINE (UA) AUTO NEGATIVE (NEGATIVE); KETONE, URINE AUTO NEGATIVE (NEGATIVE); LEUKOCYTE ESTERASE, URINE AUTO 3+ (NEGATIVE); MUCUS, URINE SMALL (NEGATIVE); NITRITE, URINE AUTO NEGATIVE (NEGATIVE); PROTEIN, URINE AUTO NEGATIVE (NEGATIVE); RBC, URINE AUTO 2 /HPF (0-3); SPECIFIC GRAVITY URINE AUTO 1.025 (1.002-1.035); SQUAMOUS EPITHELIAL CELL UR AU 6 /HPF (0-6); UROBILINOGEN, URINE AUTO 0.2 mg/dL (0.0-2.0); WBC, URINE AUTO 1 /HPF (0-3)
== END ==
LOC: M LAB REF 12:01
PROVIDERS: ATTEND Physician Assistant Medical
DX: N39.0 Urinary tract infection, site not specified (principal)

== ENCOUNTER 2023-04-09 15:41 | Emergency (ER) | payer MEDICAID, OTHER ==
[~2023-04-09] VITALS: Ht 180.3 cm; Wt 113.0 kg
[2023-04-09 15:42] VITALS: BP 122/84; TEMP 98; O2SAT 99
[2023-04-09] MEDS ORDERED: VITA200032 (16:29)
[2023-04-09 18:35] LABS: BASO % 0.5 % (0.0-1.0); EOS # 0.4 10^3/uL (0.0-0.5); EOS % 4.6 % (0.0-3.0); HEMATOCRIT 44.8 % (36.0-47.0); HEMOGLOBIN 14.8 g/dl (12.0-15.5); LYMPH # 3.5 10^3/uL (1.5-5.0); LYMPH % 39.7 % (24.0-44.0); MEAN CORPUSCULAR HEMOGLOBIN 27.7 pg (27.0-33.0); MEAN CORPUSCULAR VOLUME 83.9 fl (80.0-96.0); MONO # 0.5 10^3/uL (0.0-0.8); MONO % 5.8 % (2.0-8.0); NEUTROPHILS # 4.3 10^3/uL (1.5-8.5); NEUTROPHILS % 49.2 % (36.0-66.0); PLATELET COUNT, AUTOMATED 283 10^3/uL (150-450); RED BLOOD COUNT 5.34 10^6/uL (4.00-5.40); WHITE BLOOD COUNT 8.8 10^3/uL (4.0-10.0)
[2023-04-09 18:57] LABS: LIPASE 29 U/L (12-53)
[2023-04-09 18:59] LABS: ALBUMIN 3.7 G/DL (3.2-5.2); ALKALINE PHOSPHATASE 71 U/L (46-116); ALT/SGPT 12 U/L (7.0-40); AST/SGOT < 8 U/L (<34); BILIRUBIN,DIRECT < 0.1 MG/DL (<0.4); BILIRUBIN,TOTAL 0.2 MG/DL (0.3-1.2); BLOOD UREA NITROGEN 10 MG/DL (9-23); CALCIUM LEVEL 8.5 MG/DL (8.5-10.1); CARBON DIOXIDE LEVEL 26 MMOL/L (20-31); CHLORIDE LEVEL 106 MMOL/L (98-107); CREATININE FOR GFR 0.74 MG/DL (0.55-1.30); GLOMERULAR FILTRATION RATE > 60.0 (>60); GLUCOSE, FASTING 90 MG/DL (60-100); POTASSIUM SERUM 4.2 MMOL/L (3.5-5.1); SODIUM LEVEL 139 MMOL/L (136-145)
[2023-04-09 20:24] LABS: ERYTHROCYTE SEDIMENTATION RATE 17 mm/hr (0-20)
== END 2023-04-09 20:11 | disposition left against medical advice (07) ==
LOC: M ED 15:41
DX: Z53.21 Procedure and treatment not carried out due to patient leaving prior to being seen by health care provider (principal)

== ENCOUNTER → 2023-06-12 | Outpatient (REF) | payer OTHER ==
[~2023-06-12] MED LIST changes: +OMEP40CA5 PO; +VITA200032
[2023-06-12 17:53] LABS: APPEARANCE, URINE HAZY (CLEAR); BACTERIA, URINE AUTO NEGATIVE (NEGATIVE); BILIRUBIN, URINE AUTO NEGATIVE (NEGATIVE); BLOOD, URINE BLOOD NEGATIVE (NEGATIVE); COLOR, URINE YELLOW (YELLOW); GLUCOSE, URINE (UA) AUTO NEGATIVE (NEGATIVE); KETONE, URINE AUTO NEGATIVE (NEGATIVE); LEUKOCYTE ESTERASE, URINE AUTO 2+ (NEGATIVE); MUCUS, URINE SMALL (NEGATIVE); NITRITE, URINE AUTO NEGATIVE (NEGATIVE); PROTEIN, URINE AUTO NEGATIVE (NEGATIVE); RBC, URINE AUTO 0 /HPF (0-3); SPECIFIC GRAVITY URINE AUTO 1.019 (1.002-1.035); SQUAMOUS EPITHELIAL CELL UR AU 2 /HPF (0-6); UROBILINOGEN, URINE AUTO 0.2 mg/dL (0.0-2.0); WBC, URINE AUTO 4 /HPF (0-3)
[2023-06-12 19:02] LABS: GC DNA AMPLIFICATION NEGATIVE (NEGATIVE)
== END ==
LOC: M LAB REF 16:31
PROVIDERS: ATTEND Physician Assistant
DX: R82.90 Unspecified abnormal findings in urine (principal); N39.0 Urinary tract infection, site not specified; Z20.2 Contact with and (suspected) exposure to infections with a predominantly sexual mode of transmission

== ENCOUNTER → 2023-08-01 | Outpatient (REF) | payer OTHER | LOC: M SFHCWAGY 17:59 | PROVIDERS: ATTEND Obstetrics & Gynecology | DX: L91.8 Other hypertrophic disorders of the skin (principal) ==

== ENCOUNTER → 2023-09-29 | Outpatient (CLI) | payer OTHER ==
[~2023-09-29] MED LIST changes: -CEFD300C41 PO; +CEFD300C42 PO
== END ==
LOC: M RAD 11:05
PROVIDERS: ATTEND Physician Assistant
DX: M76.822 Posterior tibial tendinitis, left leg (principal)

== ENCOUNTER → 2023-11-19 | Outpatient (CLI) | payer OTHER ==
[~2023-11-19] MED LIST changes: +CEFD1CAP9 PO; -CEFD300C42 PO
[2023-11-19 11:38] LABS: BASO % 0.4 % (0.0-1.0); EOS # 0.1 10^3/uL (0.0-0.5); EOS % 2.6 % (0.0-3.0); HEMATOCRIT 45.1 % (36.0-47.0); HEMOGLOBIN 14.9 g/dl (12.0-15.5); LYMPH # 2.2 10^3/uL (1.5-5.0); LYMPH % 41.2 % (24.0-44.0); MEAN CORPUSCULAR VOLUME 81.9 fl (80.0-96.0); MONO # 0.3 10^3/uL (0.0-0.8); MONO % 5.1 % (2.0-8.0); NEUTROPHILS # 2.7 10^3/uL (1.5-8.5); NEUTROPHILS % 50.5 % (36.0-66.0); PLATELET COUNT, AUTOMATED 238 10^3/uL (150-450); RED BLOOD COUNT 5.51 10^6/uL (4.00-5.40); WHITE BLOOD COUNT 5.3 10^3/uL (4.0-10.0)
[2023-11-19 11:48] LABS: ERYTHROCYTE SEDIMENTATION RATE 17 mm/hr (0-20)
[2023-11-19 12:04] LABS: C REACTIVE PROTEIN QUANTITATIV < 0.40 MG/DL (<1.0)
[2023-11-19 12:06] LABS: RHEUMATOID FACTOR QUANT < 3.5 IU/ML (<14)
[2023-11-20 13:10] LABS: ANTINUCLEAR ANTIBODIES DIRECT Negative (Negative)
== END ==
LOC: M LAB 11:06
PROVIDERS: ATTEND Orthopaedic Surgery
DX: M76.822 Posterior tibial tendinitis, left leg (principal)

== ENCOUNTER → 2023-12-05 | Outpatient (REF) | payer OTHER, MEDICAID ==
[2023-12-05 11:57] LABS: HEMOGLOBIN A1c 5.3 % (4.0-6.0)
[2023-12-05 12:10] LABS: THYROID STIMULATING HORMONE 1.713 uIU/ML (0.55-4.78); TOTAL 25(OH) VITAMIN D 28.4 NG/ML (20.0-100.0)
[2023-12-05 12:11] LABS: ALBUMIN 3.6 G/DL (3.2-5.2); ALKALINE PHOSPHATASE 63 U/L (46-116); ALT/SGPT 17 U/L (7.0-40); AST/SGOT 11 U/L (<34); BILIRUBIN,TOTAL 0.5 MG/DL (0.3-1.2); BLOOD UREA NITROGEN 8 MG/DL (9-23); CALCIUM LEVEL 8.8 MG/DL (8.5-10.1); CARBON DIOXIDE LEVEL 29 MMOL/L (20-31); CHLORIDE LEVEL 107 MMOL/L (98-107); CHOLESTEROL LEVEL 179 MG/DL (<200); CHOLESTEROL RISK RATIO 3.89 (<5); CREATININE FOR GFR 0.72 MG/DL (0.55-1.30); GLOMERULAR FILTRATION RATE > 60.0 (>60); GLUCOSE, FASTING 82 MG/DL (60-100); LDL CHOLESTEROL 115.6 MG/DL (<100); POTASSIUM SERUM 4.6 MMOL/L (3.5-5.1); SODIUM LEVEL 140 MMOL/L (136-145); TOTAL PROTEIN 6.7 G/DL (5.7-8.2); TRIGLYCERIDES LEVEL 87 MG/DL (<150)
== END ==
LOC: M LAB REF 11:08
PROVIDERS: ATTEND Nurse Practitioner Family
DX: E66.9 Obesity, unspecified (principal)

== ENCOUNTER → 2024-08-05 | Outpatient (CLI) | payer OTHER ==
[~2024-08-05] MED LIST changes: +ONDA-282 PO; -ONDA4TAB6 PO
== END ==
LOC: M PLAIMG 09:05
PROVIDERS: ATTEND Physician Assistant
DX: M51.360 Other intervertebral disc degeneration, lumbar region with discogenic back pain only (principal)

== ENCOUNTER → 2024-08-25 | Outpatient (CLI) | payer OTHER ==
[2024-08-25 14:25] LABS: BASO % 0.5 % (0.0-1.0); EOS # 0.3 10^3/uL (0.0-0.5); HEMATOCRIT 43.1 % (36.0-47.0); HEMOGLOBIN 14.6 g/dl (12.0-15.5); LYMPH # 2.9 10^3/uL (1.5-5.0); LYMPH % 37.8 % (24.0-44.0); MEAN CORPUSCULAR HEMOGLOBIN 27.9 pg (27.0-33.0); MEAN CORPUSCULAR HGB CONC 33.9 g/dl (32.0-36.5); MEAN CORPUSCULAR VOLUME 82.4 fl (80.0-96.0); MONO # 0.4 10^3/uL (0.0-0.8); MONO % 5.3 % (2.0-8.0); NEUTROPHILS # 3.9 10^3/uL (1.5-8.5); NEUTROPHILS % 52.1 % (36.0-66.0); PLATELET COUNT, AUTOMATED 276 10^3/uL (150-450); RED BLOOD COUNT 5.23 10^6/uL (4.00-5.40); WHITE BLOOD COUNT 7.5 10^3/uL (4.0-10.0)
[2024-08-25 14:50] LABS: RHEUMATOID FACTOR QUANT < 3.5 IU/ML (<14)
[2024-08-25 14:51] LABS: ALBUMIN 3.6 G/DL (3.2-5.2); ALKALINE PHOSPHATASE 77 U/L (35-104); ALT/SGPT 18 U/L (7.0-40); AST/SGOT 9 U/L (<34); BILIRUBIN,TOTAL 0.4 MG/DL (0.3-1.2); BLOOD UREA NITROGEN 10 MG/DL (9-23); CALCIUM LEVEL 9.3 MG/DL (8.5-10.1); CARBON DIOXIDE LEVEL 26 MMOL/L (20-31); CHLORIDE LEVEL 107 MMOL/L (98-107); CREATININE FOR GFR 0.62 MG/DL (0.55-1.30); ERYTHROCYTE SEDIMENTATION RATE 16 mm/hr (0-20); GLOMERULAR FILTRATION RATE > 60.0 (>60); GLUCOSE, FASTING 95 MG/DL (60-100); SODIUM LEVEL 141 MMOL/L (136-145); TOTAL PROTEIN 7.2 G/DL (5.7-8.2)
[2024-08-26 13:17] LABS: SSA SJOGRENS A <1.0 NEG AI (<1.0 NEG); SSB SJOGRENS B <1.0 NEG AI (<1.0 NEG)
[2024-08-27 00:27] LABS: CYCLIC CITRULLINATED PEPTIDE < 16 UNITS (<20)
[2024-08-27 08:23] LABS: ANA PATTERN Nuclear, Homogeneous (NEGATIVE); ANA PATTERN 2 Nuclear, Speckled; ANA SCREEN, IFA POSITIVE (NEGATIVE); ANA TITER 1:40 titer (<1:40); ANA TITER 2 1:40 titer (NEGATIVE)
== END ==
LOC: M EKG 12:28
PROVIDERS: ATTEND Nurse Practitioner Family
DX: M79.7 Fibromyalgia (principal); R00.2 Palpitations

== ENCOUNTER → 2024-09-11 | Outpatient (REF) | payer OTHER ==
[2024-09-11 13:09] LABS: APPEARANCE, URINE HAZY (CLEAR); BACTERIA, URINE AUTO NEGATIVE (NEGATIVE); BILIRUBIN, URINE AUTO NEGATIVE (NEGATIVE); BLOOD, URINE BLOOD NEGATIVE (NEGATIVE); COLOR, URINE YELLOW (YELLOW); GLUCOSE, URINE (UA) AUTO NEGATIVE (NEGATIVE); KETONE, URINE AUTO NEGATIVE (NEGATIVE); LEUKOCYTE ESTERASE, URINE AUTO NEGATIVE (NEGATIVE); MUCUS, URINE SMALL (NEGATIVE); NITRITE, URINE AUTO NEGATIVE (NEGATIVE); PROTEIN, URINE AUTO NEGATIVE (NEGATIVE); RBC, URINE AUTO 1 /HPF (0-3); SPECIFIC GRAVITY URINE AUTO 1.023 (1.002-1.035); SQUAMOUS EPITHELIAL CELL UR AU 13 /HPF (0-6); UROBILINOGEN, URINE AUTO 0.2 mg/dL (0.0-2.0); WBC, URINE AUTO 2 /HPF (0-3)
[2024-09-11 14:11] LABS: Trichomonas vaginalis (AMP) NOT DETECTED (NEGATIVE)
[2024-09-11 14:35] LABS: GC DNA AMPLIFICATION NEGATIVE (NEGATIVE)
== END ==
LOC: M LAB REF 12:42
PROVIDERS: ATTEND Physician Assistant Medical
DX: N39.0 Urinary tract infection, site not specified (principal); Z20.2 Contact with and (suspected) exposure to infections with a predominantly sexual mode of transmission

== ENCOUNTER → 2024-10-16 | Outpatient (REF) | payer OTHER ==
[2024-10-16 17:04] LABS: APPEARANCE, URINE HAZY (CLEAR); BACTERIA, URINE AUTO NEGATIVE (NEGATIVE); BILIRUBIN, URINE AUTO NEGATIVE (NEGATIVE); BLOOD, URINE BLOOD NEGATIVE (NEGATIVE); COLOR, URINE YELLOW (YELLOW); GLUCOSE, URINE (UA) AUTO NEGATIVE (NEGATIVE); KETONE, URINE AUTO NEGATIVE (NEGATIVE); LEUKOCYTE ESTERASE, URINE AUTO NEGATIVE (NEGATIVE); MUCUS, URINE SMALL (NEGATIVE); NITRITE, URINE AUTO NEGATIVE (NEGATIVE); PROTEIN, URINE AUTO NEGATIVE (NEGATIVE); RBC, URINE AUTO 1 /HPF (0-3); SPECIFIC GRAVITY URINE AUTO 1.013 (1.002-1.035); SQUAMOUS EPITHELIAL CELL UR AU 3 /HPF (0-6); UROBILINOGEN, URINE AUTO 0.2 mg/dL (0.0-2.0); WBC, URINE AUTO 0 /HPF (0-3)
== END ==
LOC: M LAB REF 16:15
PROVIDERS: ATTEND Physician Assistant
DX: N39.0 Urinary tract infection, site not specified (principal)

== ENCOUNTER → 2024-12-05 | Outpatient (CLI) | payer OTHER | LOC: M PLALAB 11:54 | PROVIDERS: ATTEND Obstetrics & Gynecology | DX: N92.6 Irregular menstruation, unspecified (principal) ==

== ENCOUNTER → 2024-12-08 | Outpatient (CLI) | payer OTHER | LOC: M PLALAB 13:27 | PROVIDERS: ATTEND Obstetrics & Gynecology | DX: N92.6 Irregular menstruation, unspecified (principal) ==

== ENCOUNTER → 2024-12-23 | Outpatient (CLI) | payer OTHER ==
[2024-12-23 11:07] LABS: CHOLESTEROL RISK RATIO 4.3 (<5); HDL CHOLESTEROL 51.3 MG/DL (>40); LDL CHOLESTEROL 146.9 MG/DL (<100); MAGNESIUM LEVEL 1.9 MG/DL (1.8-2.4); NON-HDL-C 169.7 MG/DL; THYROID STIMULATING HORMONE 1.227 uIU/ML (0.55-4.78)
[2024-12-23 11:09] LABS: FREE T4 1.23 NG/DL (0.89-1.76)
== END ==
LOC: M LAB 09:06
PROVIDERS: ATTEND Physician Assistant
DX: R00.2 Palpitations (principal); R06.02 Shortness of breath; E78.49 Other hyperlipidemia

== ENCOUNTER → 2025-01-29 | Outpatient (CLI) | payer OTHER ==
[~2025-01-29] MED LIST changes: +FLUV25TA11 PO; -FLUV25TA13 PO
== END ==
LOC: M CARPUL 10:33
PROVIDERS: ATTEND Physician Assistant
DX: R07.9 Chest pain, unspecified (principal)

== ENCOUNTER → 2025-02-19 | Outpatient (REF) | payer OTHER ==
[2025-02-19 15:29] LABS: APPEARANCE, URINE CLEAR (CLEAR); BACTERIA, URINE AUTO NEGATIVE (NEGATIVE); BILIRUBIN, URINE AUTO NEGATIVE (NEGATIVE); BLOOD, URINE BLOOD NEGATIVE (NEGATIVE); COLOR, URINE YELLOW (YELLOW); GLUCOSE, URINE (UA) AUTO NEGATIVE (NEGATIVE); KETONE, URINE AUTO NEGATIVE (NEGATIVE); LEUKOCYTE ESTERASE, URINE AUTO NEGATIVE (NEGATIVE); MUCUS, URINE SMALL (NEGATIVE); NITRITE, URINE AUTO NEGATIVE (NEGATIVE); PROTEIN, URINE AUTO NEGATIVE (NEGATIVE); RBC, URINE AUTO 1 /HPF (0-3); SPECIFIC GRAVITY URINE AUTO 1.008 (1.002-1.035); SQUAMOUS EPITHELIAL CELL UR AU 2 /HPF (0-6); UROBILINOGEN, URINE AUTO 0.2 mg/dL (0.0-2.0); WBC, URINE AUTO 1 /HPF (0-3)
[2025-02-19 15:45] LABS: BASO % 0.6 % (0.0-1.0); EOS # 0.2 10^3/uL (0.0-0.5); HEMATOCRIT 46.5 % (36.0-47.0); HEMOGLOBIN 15.2 g/dl (12.0-15.5); LYMPH # 2.4 10^3/uL (1.5-5.0); LYMPH % 35.3 % (24.0-44.0); MEAN CORPUSCULAR HEMOGLOBIN 27.2 pg (27.0-33.0); MEAN CORPUSCULAR HGB CONC 32.7 g/dl (32.0-36.5); MEAN CORPUSCULAR VOLUME 83.3 fl (80.0-96.0); MONO # 0.4 10^3/uL (0.0-0.8); MONO % 6.4 % (2.0-8.0); NEUTROPHILS # 3.7 10^3/uL (1.5-8.5); NEUTROPHILS % 54.4 % (36.0-66.0); PLATELET COUNT, AUTOMATED 302 10^3/uL (150-450); RED BLOOD COUNT 5.58 10^6/uL (4.00-5.40); WHITE BLOOD COUNT 6.7 10^3/uL (4.0-10.0)
[2025-02-19 15:53] LABS: ERYTHROCYTE SEDIMENTATION RATE 17 mm/hr (0-20)
[2025-02-19 15:58] LABS: CREATININE,RANDOM URINE 67.4 MG/DL
[2025-02-19 16:07] LABS: TOTAL PROTEIN,RANDOM URINE < 6.0 MG/DL (0.0-14.0)
[2025-02-19 16:11] LABS: ALBUMIN 3.8 G/DL (3.2-5.2); ALKALINE PHOSPHATASE 65 U/L (35-104); ALT/SGPT 18 U/L (7.0-40); AST/SGOT 12 U/L (<34); BILIRUBIN,DIRECT 0.1 MG/DL (<0.4); BILIRUBIN,TOTAL 0.3 MG/DL (0.3-1.2); BLOOD UREA NITROGEN 7 MG/DL (9-23); C REACTIVE PROTEIN QUANTITATIV < 0.50 MG/DL (<1.0); CARBON DIOXIDE LEVEL 24 MMOL/L (20-31); CHLORIDE LEVEL 107 MMOL/L (98-107); COMPLEMENT C3 169.2 MG/DL (84.0-160.0); COMPLEMENT C4 38.4 MG/DL (12-36); CREATININE FOR GFR 0.66 MG/DL (0.55-1.30); GLOMERULAR FILTRATION RATE > 90.0 (>60); GLUCOSE, FASTING 86 MG/DL (60-100); IRON (FE) 115 UG/DL (50-170); PERCENT SATURATION 41.7 % (13.2-45.0); PHOSPHORUS LEVEL 3.3 MG/DL (2.5-4.9); POTASSIUM SERUM 4.4 MMOL/L (3.5-5.1); SODIUM LEVEL 139 MMOL/L (136-145); TOTAL IRON BINDING CAPACITY 276 UG/DL (250-425)
[2025-02-19 16:13] LABS: FERRITIN 33.1 NG/ML (7.3-270.7); VITAMIN B12 LEVEL 386 PG/ML (211-911)
== END ==
LOC: M SFHCRHEU 12:47
PROVIDERS: ATTEND Internal Medicine
DX: R76.8 Other specified abnormal immunological findings in serum (principal); M25.50 Pain in unspecified joint; M79.10 Myalgia, unspecified site

== ENCOUNTER → 2025-02-19 | Outpatient (CLI) | payer OTHER | LOC: M RAD 13:42 | PROVIDERS: ATTEND Internal Medicine | DX: M16.0 Bilateral primary osteoarthritis of hip (principal); M25.531 Pain in right wrist; M25.532 Pain in left wrist; M79.641 Pain in right hand; M79.642 Pain in left hand ==